=== PATIENT | female | born 1960 | race Caucasian/White ===

== ENCOUNTER 2022-05-13 19:59 | Inpatient (IN) ==
[2022-05-13] MEDS ORDERED: SODIUM CHLORIDE 0.9% 1000ML 1,000 ML IV ONE (20:25)
--- NOTE | 2022-05-13 20:38 | Emergency Department Note ---
Impression & Plan Dizziness, Syncope, Hypotension, Thyroid dysfunction ED Provider Note ED Provider Note NAME: LILLY BROWNING AGE:61 SEX: Female : 1960 ARRIVES VIA: EMS INFORMANT: Patient, EMS ED PROVIDER(s): Lisa Quinones DO CHIEF COMPLAINT: Syncope, dizziness, hypotension HPI: This is a 61-year-old female brought in by EMS following a syncopal event at home. Patient states she was feeling lightheaded/dizzy all day today. Patient states she recalls walking into the kitchen and the next thing she knew she was waking up on the floor. She states she did have preceding lightheadedness, blurred vision, and felt herself getting weaker prior to passing out. Unknown time on the floor prior to waking up. Patient does use lo w-dose aspirin, no anticoagulation. Patient denies any preceding or current headaches, chest pain, trouble breathing, abdominal pain. Patient denies any recent change in medications or recent illness. Patient states she had a similar episode previously and her blood pressure medication was lowered. She states she does still take losartan 25 mg daily. Patient states she does see cardiology and has had prior cardiac catheterization, no intervention required. Patient does use pain medication and muscle relaxers daily due to ongoing issues with back pain and spinal stenosis. Patient denies any change in urine or stools recently. She denies any current neck or back pain, chest pain, trouble breathing, numbness or tingling. Patient states she did have mild intermittent paresthesias to bilateral upper extremities earlier in the day today, prior to her syncopal event and fall. EMS reported on their arrival initial blood pressure showed a systolic in 60's. PAST MEDICAL HISTORY:See Below PAST SURGICAL HISTORY:See Below FAMILY HISTORY:See Below SOCIAL HISTORY:See Below HOME MEDICATIONS:See Below ALLERGIES:See Below VITALS:See Below PHYSICAL EXAMINATION: GENERAL: alert, well appearing, well nourished, no distress, non-toxic HEAD: nc/at, no castañeda signs, no raccoon eyes, no evidence of facial trauma EYE EXAM: normal conjunctiva, PERRL and EOM's grossly intact, no nystagmus OROPHARYNX: no exudate, no erythema, lips, buccal mucosa, and tongue normal and mucous membranes are moist NECK: supple, no nuchal rigidity, no adenopathy, non-tender LUNGS: Clear to auscultation. Normal chest wall mechanics, no w/r/r HEART: no murmurs, S1 normal and S2 normal ABDOMEN: abdomen soft, non-tender, normo-active bowel sounds, no masses, no rebound or guarding. BACK: Back is symmetrical on inspection and there is no deformity, no midline tenderness, no CVA tenderness. SKIN: no rashes, petechiae, orbruising UPPER EXTREMITIES: upper extremities are grossly normal. FROM, nml pulses b/l. No evidence of trauma or deformity. Sensation intact bilaterally. LOWER EXTREMITIES: No pitting edema. FROM, nml pulses b/l. No evidence of trauma or deformity. Sensation intact bilaterally. NEURO EXAM: Normal sensorium, cranial nerves II-XII grossly intact, normal spe ech, no facial droop,nogross weakness of arms, no gross weakness of legs. Gross sensation intact. No ataxia. Vital Signs: reviewed and remarkable Differential Diagnosis: Differential diagnosis includes etiologies such as vasovagal event, infection, hypoglycemia, electrolyte abnormalities, cardiac sources, intracerebral event, toxicologic, neurologic, as well as others were entertained. MEDICAL DECISION MAKING: Patient has a family history of CVA and hypertension. Patient was first seen and observation began at 2014 and was necessary in order to evaluate symptoms and etiology of syncope and hypotension. Upon re-evaluation, 4 hours of observation revealed that the patient could be discharged. Discharge from observation at time 0022. This is a 61 yo female brought by EMS after syncopal event at home with persistent hypotension. Patient hypotensive on arrival, VS otherwise stable, and IVF had been started prehospital. These were continued in the ER. Patient did have prodromal symptoms per her report, and denied preceding chest pain, headaches, abd pain. Patient no other focal complaints following syncope also and no concern for injury. No anticoagulation, low dose ASA. Patient sent for CT and CXR performed, these were reassuring. Labs reassuring with exception of TSH. patient with history of thyroid dysfunction and reports PCP recently changed her meds. She denies any other recent illness. Patient given 3 L of IVF in the ER and reported feeling improved however still had persistent h ypotension. She has a normal and nonfocal neuro exam throughout. She dose use antihypertensive meds and chronic pain meds which could be contributing to hypotension also. Given history, risk factors for ACS and hx of CAD, and persistent hypotension, case discussed with hospitalist for additional evaluation and treatment. I do not suspect acute CHASSIS WIRER or vascular etiology of her symptoms. Consultation(s): 0022: Discussed with Dr. Kenny. ER Treatment Provided: See below 2215: Patient still hypotensive, however reports feeling improved. 2258: Second liter of IV fluids started. Patient weaned off oxygen without any further hypoxia. Patient reports feeling improved and is tolerating p.o. at bedside. 2329: Patient still hypotensive despite feeling well. We did discuss thyroid dysfunction. She states her family doctor did recently make changes to her thyroid medication. 2358: Patient still hypotensive. Diagnostics Interpreted By Me: -ECG: Normal sinus rhythm at 79 bpm, first-degree AV block, normal QRS and QTc, normal axis, no acute ST/T wave changes -Cardiac Monitoring: An order was placed for continuous cardiac monitoring. The monitor shows a rate of 80 with normal sinus rhythm. -Laboratory studies: As stated above and show below. -Imaging studies: CT head and C-spine, chest x-ray Triage Nursing Note Reviewed Prior/Outside Records Reviewed Procedures: [] Critical Care: [] Past Med/Surg History Medical History (Updated 05/14/22 @ 13:54 by Baltazar Hernandez MD) CAD (coronary artery disease) Chest pain Dyslipidemia Hypertension Hypothyroid Sinus tachycardia Spinal stenosis, lumbar region with neurogenic claudication Surgical History H/O: hysterectomy partial History of cholecystectomy History of knee replacement Bilateral Hx of knee surgery Family History Mother Coronary heart disease Brother Coronary heart disease Social History Smoking Status: Never smoker Hx Alcohol Use: No Hx Substance Use: No Preferred Language: Telugu Communication Ability: Effective General Supervisor Required: No Beliefs That Will Affect Care: None marital status: Current Living Situation: Alone current occupational status: unemployed Feels Safe at Home: Yes Assistive Devices: Cane and Walker Allergies Allergies Allergy/AdvReac Type Severity Reaction Status Date / Time nickel Allergy Intermediate Hives Verified 05/14/22 00:59 Home Meds Home Medications Medication Instructions Recorded Confirmed aspirin 81 mg tablet,delayed 81 mg PO DAILY 08/10/20 05/14/22 release cetirizine 10 mg tablet 10 mg PO BID PRN Other 08/10/20 05/14/22 duloxetine 60 mg capsule,delayed 60 mg PO DAILY neuropathy 08/10/20 05/14/22 release etodolac 500 mg tablet 500 mg PO BID 08/10/20 05/14/22 metformin 500 mg tablet 1,000 mg PO BID 08/10/20 05/14/22 omeprazole 20 mg capsule,delayed 20 mg PO DAILY 08/10/20 05/14/22 release tizanidine 2 mg capsule 2 mg PO BID PRN MUSCLE SPASMS 02/20/21 05/14/22 semaglutide 1 mg/dose (2 mg/1.5 2 mg subcut WK 09/06/21 05/14/22 mL) subcutaneous pen injector camphor-menthol 0.5 %-0.5 % lotion 1 applic topical TID 02/25/22 05/14/22 diltiazem HCl 120 mg 120 mg PO DAILY 02/25/22 05/14/22 capsule,extended release 12 hr lidocaine 5 % topical ointment 1 applic topical BID 02/25/22 05/14/22 magnesium oxide 420 mg tablet 420 mg PO DAILY 02/25/22 05/14/22 pregabalin 225 mg capsule 225 mg PO BID 02/25/22 05/14/22 rosuvastatin 20 mg tablet 20 mg PO DAILY 02/25/22 05/14/22 metoprolol tartrate 25 mg tablet 25 mg PO DAILY 03/05/22 05/14/22 levothyroxine 25 mcg tablet 25 mcg PO Q OTHER DAY 05/14/22 05/14/22 levothyroxine 50 mcg tablet 50 mcg PO Q OTHER DAY 05/14/22 05/14/22 Previous Rx's Medication Instructions Recorded isosorbide mononitrate 30 mg 30 mg PO DAILY #30 tabs 08/27/20 tablet,extended release 24 hr Results & Data (ED) Vital Signs Vital Signs - 24 hr 05/13/22 20:09 05/13/22 20:09 05/13/22 20:09 Temperature 36.8 C Temperature Source Oral Pulse Rate 82 Pulse Rate [Right Finger] 80 Respiratory Rate Blood Pressure 84/57 L Blood Pressure [Right Arm] 84/57 L Blood Pressure Mean 66 Blood Pressure Mean [Right Arm] 66 Pulse Oximetry 91 91 Oxygen Delivery Method Room Air Room Air Room Air Oxygen Flow Rate Sepsis Recent Fever Within 48 Hours No Sepsis New/Unexplained Change in Mental Status No Sepsis Action Taken by Nursing No Action Required Pulse Oximetry Post Tiitration 91 05/13/22 20:37 05/13/22 22:07 05/13/22 22:47 Temperature Temperature Source Pulse Rate Pulse Rate [Right Finger] 77 76 Respiratory Rate Blood Pressure Blood Pressure [Right Arm] 80/52 L 82/51 L 91/59 L Blood Pressure Mean Blood Pressure Mean [Right Arm] 61 61 69 Pulse Oximetry 90 94 92 Oxygen Delivery Method Nasal Cannula Room Air Nasal Cannula Oxygen Flow Rate 2 2 Sepsis Recent Fever Within 48 Hours Sepsis New/Unexplained Change in Mental Status Sepsis Action Taken by Nursing Pulse Oximetry Post Tiitration 05/13/22 23:00 05/13/22 23:30 05/13/22 23:37 Temperature Temperature Source Pulse Rate 75 71 Pulse Rate [Right Finger] Respiratory Rate 21 17 Blood Pressure 71/54 L 94/59 L 91/57 L Blood Pressure [Right Arm] Blood Pressure Mean 59 70 68 Blood Pressure Mean [Right Arm] Pulse Oximetry 91 92 Oxygen Delivery Method Room Air Room Air Oxygen Flow Rate Sepsis Recent Fever Within 48 Hours Sepsis New/Unexplained Change in Mental Status Sepsis Action Taken by Nursing Pulse Oximetry Post Tiitration 05/13/22 23:38 05/14/22 00:00 Temperature Temperature Source Pulse Rate 77 77 Pulse Rate [Right Finger] Respiratory Rate 20 26 H Blood Pressure 97/71 L 92/64 L Blood Pressure [Right Arm] Blood Pressure Mean 79 73 Blood Pressure Mean [Right Arm] Pulse Oximetry 92 95 Oxygen Delivery Method Room Air Room Air Oxygen Flow Rate Sepsis Recent Fever Within 48 Hours Sepsis New/Unexplained Change in Mental Status Sepsis Action Taken by Nursing Pulse Oximetry Post Tiitration Laboratory Data 05/13/22 19:36 05/13/22 19:36 Lab Results 05/13/22 05/13/22 05/13/22 Range/Units 19:36 19:36 19:36 WBC 6.97 (4.8-10.8) K/ul RBC 4.83 (3.93-5.22) M/uL Hgb 13.2 (12.0-16.0) g/dl Hct 42.0 (34.1-44.9) % MCV 87.0 (80.0-100.0) fL MCH 27.3 (25.0-34.0) pg MCHC 31.4 L (32.0-36.0) g/dL RDW Std Deviation 47.6 H (36.4-46.3) fL RDW Coeff of Kamila 14.9 H (11.5-14.5) % Plt Count 231 (130-400) K/uL MPV 10.5 (9.4-12.3) fL Immature Gran % (Auto) 0.3 % Neut % (Auto) 79.2 % Lymph % (Auto) 13.6 % [place] % (Auto) 5.0 % Eos % (Auto) 1.3 % Baso % (Auto) 0.6 % Neut # (Auto) 5.52 (1.4-6.5) K/uL Lymph # (Auto) 0.95 L (1.2-3.4) K/uL [place] # (Auto) 0.35 (0.24-0.82) K/uL Eos # (Auto) 0.09 (0-0.50) K/uL Baso # (Auto) 0.04 (0-0.2) K/uL Immature Gran # (Auto) 0.02 (0.00-0.02) K/uL PT 10.9 (9.0-12.0) Seconds INR 1.0 (0.9-1.1) Sodium 136 (136-145) mmol/L Potassium 4.4 (3.5-5.1) mmol/L Chloride 103 (98-107) mmol/L Carbon Dioxide 26 (21-32) mmol/L Anion Gap 7 (3-11) BUN 21 (6-23) mg/dl Creatinine 1.19 (0.6-1.2) mg/dl Est Cr Clr Drug Dosing 54.4 ml/min Est GFR ( Amer) 57.9 ml/min Est GFR (Non-Af Amer) 49.9 ml/min BUN/Creatinine Ratio 17.6 (10-20) Glucose 121 H (70-99(Fasting)) mg/dl Calcium 9.4 (8.5-10.1) mg/dl Magnesium 1.7 (1.7-2.4) mg/dl Total Bilirubin 1.4 H (0.2-1.0) mg/dl AST 19 (13-39) U/L ALT 12 (7-52) U/L Alkaline Phosphatase 83 (34-104) U/L Troponin I High Sens 3.3 (0-14) pg/ml Total Protein 7.5 (6.0-8.3) gm/dl Albumin 4.5 (3.4-5.0) gm/dl Globulin 3.0 (2.5-4.0) gm/dl Albumin/Globulin Ratio 1.5 (0.9-2) TSH (0.300-4.500) uIu/ml Free T4 (0.61-1.60) ng/dl SARS-CoV-2 (PCR) (Negative) Influenza Type A (PCR) (Neg) Influenza Type B (PCR) (Neg) RSV (RT-PCR) (Neg) 05/13/22 05/13/22 05/14/22 Range/Units 19:36 23:56 00:30 WBC (4.8-10.8) K/ul RBC (3.93-5.22) M/uL Hgb (12.0-16.0) g/dl Hct (34.1-44.9) % MCV (80.0-100.0) fL MCH (25.0-34.0) pg MCHC (32.0-36.0) g/dL RDW Std Deviation (36.4-46.3) fL RDW Coeff of Kamila (11.5-14.5) % Plt Count (130-400) K/uL MPV (9.4-12.3) fL Immature Gran % (Auto) % Neut % (Auto) % Lymph % (Auto) % [place] % (Auto) % Eos % (Auto) % Baso % (Auto) % Neut # (Auto) (1.4-6.5) K/uL Lymph # (Auto) (1.2-3.4) K/uL [place] # (Auto) (0.24-0.82) K/uL Eos # (Auto) (0-0.50) K/uL Baso # (Auto) (0-0.2) K/uL Immature Gran # (Auto) (0.00-0.02) K/uL PT (9.0-12.0) Seconds INR (0.9-1.1) Sodium (136-145) mmol/L Potassium (3.5-5.1) mmol/L Chloride (98-107) mmol/L Carbon Dioxide (21-32) mmol/L Anion Gap (3-11) BUN (6-23) mg/dl Creatinine (0.6-1.2) mg/dl Est Cr Clr Drug Dosing ml/min Est GFR ( Amer) ml/min Est GFR (Non-Af Amer) ml/min BUN/Creatinine Ratio (10-20) Glucose (70-99(Fasting)) mg/dl Calcium (8.5-10.1) mg/dl Magnesium (1.7-2.4) mg/dl Total Bilirubin (0.2-1.0) mg/dl AST (13-39) U/L ALT (7-52) U/L Alkaline Phosphatase (34-104) U/L Troponin I High Sens 2.4 (0-14) pg/ml Total Protein (6.0-8.3) gm/dl Albumin (3.4-5.0) gm/dl Globulin (2.5-4.0) gm/dl Albumin/Globulin Ratio (0.9-2) TSH 21.297 H (0.300-4.500) uIu/ml Free T4 0.65 (0.61-1.60) ng/dl SARS-CoV-2 (PCR) NEGATIVE (Negative) Influenza Type A (PCR) Negative (Neg) Influenza Type B (PCR) Negative (Neg) RSV (RT-PCR) Negative (Neg) Administered Medications Discontinued Medications Hydrocodone Bitart/Acetaminophen (Hydrocodone/Acetaminophen 7.5/325mg Tab) 1 tab PO NOW STA Stop: 05/13/22 23:34 Last Admin: 05/13/22 23:46 Dose: 1 tab Documented By: DP Hydrocodone Bitart/Acetaminophen (Hydrocodone/Acetaminophen 7.5/325mg Tab) 1 tab PO Q8H PRN PRN Reason: Moderate Pain Stop: 05/28/22 02:34 Last Admin: 05/14/22 05:08 Dose: 1 tab Documented By: CLC Aspirin (Aspirin 81 Mg Ectab) 81 mg PO DAILY TITO Stop: 06/13/22 08:59 Last Admin: 05/14/22 08:41 Dose: 81 mg Documented By: CB Diltiazem HCl (Diltiazem Hcl 120 Mg Capcr) 120 mg PO DAILY [facility] Stop: 06/13/22 08:59 Last Admin: 05/14/22 08:41 Dose: 120 mg Documented By: GABRIELLA Duloxetine HCl (Duloxetine Hcl 60 Mg Cap) 60 mg PO DAILY [facility] Stop: 06/13/22 08:59 Last Admin: 05/14/22 08:41 Dose: 60 mg Documented By: GABRIELLA Sodium Chloride (Nss 1000ml) 1,000 mls @ 999 mls/hr IV .Q1H1M ONE Stop: 05/13/22 21:25 Last Infusion: 05/13/22 21:40 Dose: 0 mls/hr Documented By: Admin: 05/13/22 20:37 Dose: 999 mls/hr Documented By: TAM Magnesium Sulfate/Dextrose (Magnesium Sulfate / D5w) 1 gm in 100 mls @ 50 mls/hr IV Q2H TITO Stop: 05/14/22 12:59 Last Infusion: 05/14/22 13:34 Dose: 0 mls/hr Documented By: Admin: 05/14/22 11:13 Dose: 50 mls/hr Documented By: Infusion: 05/14/22 11:13 Dose: 50 mls/hr Documented By: Admin: 05/14/22 09:40 Dose: 50 mls/hr Documented By: GABRIELLA Insulin Aspart (Insulin Aspart Per Unit) 0 units SC ACHS [facility] Stop: 06/13/22 07:29 Last Admin: 05/14/22 12:45 Dose: 1 units Documented By: GABRIELLA Co-signed By: KRISS Admin: 05/14/22 08:22 Dose: 1 units Documented By: GABRIELLA Co-signed By: MING Isosorbide Mononitrate (Isosorbide [place] Extended Rel 30 Mg Tabcr) 30 mg PO DAILY [facility] Stop: 06/13/22 08:59 Last Admin: 05/14/22 10:58 Dose: Not Given Documented By: GABRIELLA Isosorbide Mononitrate (Isosorbide [place] Extended Rel 30 Mg Tabcr) 15 mg PO DAILY [facility] Stop: 06/13/22 10:59 Last Admin: 05/14/22 11:06 Dose: 15 mg Documented By: GABRIELLA Levothyroxine Sodium (Levothyroxine Sodium 50 Mcg Tablet) 50 mcg PO Q2D@0630 [facility] Stop: 06/13/22 06:29 Last Admin: 05/14/22 05:05 Dose: 50 mcg Documented By: ABDON Lidocaine (Lidocaine 5% Oint 30 Gm Tube) 1 appln TOP BID [facility] Stop: 06/13/22 08:59 Last Admin: 05/14/22 08:41 Dose: 1 appln Documented By: GABRIELLA Losartan Potassium (Losartan Potassium 50 Mg Tab) 50 mg PO DAILY [facility] Stop: 06/13/22 08:59 Last Admin: 05/14/22 10:59 Dose: Not Given Documented By: GABRIELLA Losartan Potassium (Losartan Potassium 25 Mg Tab) 25 mg PO DAILY [facility] Stop: 06/13/22 10:59 Last Admin: 05/14/22 11:06 Dose: 25 mg Documented By: GABRIELLA Magnesium Oxide (Magnesium Oxide 400 Mg Tab) 400 mg PO DAILY [facility] Stop: 06/13/22 08:59 Last Admin: 05/14/22 08:40 Dose: 400 mg Documented By: GABRIELLA Metoprolol Tartrate (Metoprolol Tartrate 25 Mg Tab) 25 mg PO DAILY [facility] Stop: 06/13/22 08:59 Last Admin: 05/14/22 08:41 Dose: 25 mg Documented By: GABRIELLA Miscellaneous (Etodolac - Order Awaiting Action) 1 each N/A QS [facility] Stop: 06/13/22 07:59 Last Admin: 05/14/22 08:32 Dose: Not Given Documented By: GABRIELLA *Etodolac 500 Mg Tab *Non-Formulary Patient's Own Med 1 each PO BID [facility]; Protocol Stop: 06/13/22 09:59 Last Admin: 05/14/22 10:29 Dose: 1 tab Documented By: GABRIELLA Pantoprazole Sodium (Pantoprazole 40 Mg Tab) 40 mg PO DAILY [facility] Stop: 06/13/22 08:59 Last Admin: 05/14/22 08:40 Dose: 40 mg Documented By: GABRIELLA Pregabalin (Pregabalin 75 Mg Cap) 225 mg PO BID [facility] Stop: 06/13/22 08:59 Last Admin: 05/14/22 08:40 Dose: 225 mg Documented By: GABRIELLA Rosuvastatin Calcium (Rosuvastatin Calcium 20 Mg Tab) 20 mg PO DAILY [facility] Stop: 06/13/22 08:59 Last Admin: 05/14/22 08:41 Dose: 20 mg Documented By: GABRIELLA Imaging Data Radiologist's Impression: Cervical Spine CT 05/13/22 20:25 CT SCAN OF THE CERVICAL SPINE CLINICAL HISTORY: Fall. Neck pain. COMPARISON STUDY: No priors. TECHNIQUE: CT scan of the cervical spine is performed from the skull base to the upper thoracic spine. Images are reviewed in the axial, sagittal, and coronal planes. IV contrast was not administered for this examination. A dose lowering technique was utilized adhering to the principles of ALARA. FINDINGS: Skeletal structures: The skeletal structures are osteopenia. There is no evidence of fracture or subluxation involving the cervical spine. Vertebral body height and alignment are maintained. There is straightening of the cervical lordosis. Anterior osteophytes are seen throughout. The odontoid process and lateral masses are intact. The atlantoaxial articulation is preserved noting productive degenerative change. The spinous processes appear intact. There is mild to moderate multilevel cervical spondylosis. Uncovertebral and facet arthropathy contribute to neural foraminal narrowing at several levels. Intervertebral discs: There is moderate multilevel degenerative disc space narrowing, greatest at C5-C6 and C6-C7. Central canal: Posterior disc osteophyte complexes are seen at all cervical levels between C3-C4 and C6-C7. This likely contributes to multilevel acquired compromise of the central canal. Soft tissues: The prevertebral and paraspinous soft tissues are within normal limits. There is atherosclerotic calcification of the left carotid bulb. Calvarium: The visualized calvarium at the skull base appears intact. Brain parenchyma: Partially visualized brain parenchyma at the skull base is within normal limits. Sinuses and mastoids: The visualized paranasal sinuses are clear. The mastoid air cells are well pneumatized. Lung apices: Clear as visualized. IMPRESSION: 1. There is no evidence of fracture or subluxation involving the cervical spine. 2. Osteopenia and spondylotic change as above. ACT 112: Negative or not required by law. Electronically signed by: Von Crump M.D. 05/13/2022 9:43 PM Chest X-Ray 05/13/22 20:25 SINGLE VIEW CHEST CLINICAL HISTORY: Generalized weakness. Hypotension FINDINGS: An AP, portable, upright chest radiograph is obtained. No prior studies are available for comparison at the time of dictation. The examination is degraded by portable technique and apical lordotic positioning. The cardiomediastinal silhouette is unremarkable. There is mild elevation of the right hemidiaphragm. The lungs and pleural spaces are clear. No pneumothorax is seen. The skeletal structures are osteopenic. The bony thorax is grossly intact. IMPRESSION: No active disease in the chest. ACT 112: Negative or not required by law. Electronically signed by: Von Crump M.D. 05/13/2022 8:[address] 05/13/22 20:25 CT SCAN OF THE BRAIN WITHOUT IV CONTRAST CLINICAL HISTORY: Head injury. COMPARISON STUDY: No priors. TECHNIQUE: Unenhanced axial CT scan of the brain is performed from the vertex to the skull base. A dose lowering technique was utilized adhering to the principles of ALARA. CT DOSE: 1087.85 mGy.cm FINDINGS: Brain parenchyma: The brain parenchyma is normal in appearance. There is no hemorrhage, mass effect, or evidence of acute territorial ischemia by CT criteria. López-white matter differentiation is preserved. No extra-axial fluid collection is seen. Ventricles, sulci, cisterns: Normal in configuration. Intracranial vasculature: The visualized intracranial vasculature at the skull base is normal in appearance. Calvarium: Unremarkable. Sinuses and mastoids: The paranasal sinuses are clear. The mastoid air cells are well pneumatized. Orbits: The bony orbits are grossly intact. IMPRESSION: No acute intracranial abnormality. ACT 112: Negative or not required by law. Electronically signed by: Von Crump M.D. 05/13/2022 9:36 PM Discharge Plan Visit Data Chief Complaint: Dizziness Stated Complaint: Fall ED Provider: Lisa Quinones Discharge Problem: Dizziness, Syncope, Hypotension, Thyroid dysfunction Patient Disposition: Admitted As Inpatient Discharge Instructions Interventions: ED Discharge Assessment Last Done: 05/14/22 02:21
--- NOTE | 2022-05-13 20:59 | XRay Report ---
SINGLE VIEW CHEST CLINICAL HISTORY: Generalized weakness. Hypotension FINDINGS: An AP, portable, upright chest radiograph is obtained. No prior studies are available for c omparison at the time of dictation. The examination is degraded by portable technique and apical lord otic positioning. The cardiomediastinal silhouette is unremarkable. There is mild elevation of the ri ght hemidiaphragm. The lungs and pleural spaces are clear. No pneumothorax is seen. The skeletal stru ctures are osteopenic. The bony thorax is grossly intact. IMPRESSION: No active disease in the chest. ACT 112: Negative or not required by law. Electronically signed by: Von Crump M.D. 05/13/2022 8:58 PM
[2022-05-13 21:12] LABS: Basophils # (auto) 0.04 K/uL (0-0.2); Basophils % (auto) 0.6 %; Eosinophils # (auto) 0.09 K/uL (0-0.50); Eosinophils % (auto) 1.3 %; Hemoglobin 13.2 g/dl (12.0-16.0); Immature Granulocytes # (auto) 0.02 K/uL (0.00-0.02); Immature Granulocytes % (auto) 0.3 %; Lymphocytes # (auto) 0.95 K/uL (1.2-3.4); Lymphocytes % (auto) 13.6 %; Mean Corpuscular Hemoglobin 27.3 pg (25.0-34.0); Mean Corpuscular Hgb Conc 31.4 g/dL (32.0-36.0); Mean Platelet Volume 10.5 fL (9.4-12.3); Monocytes # (auto) 0.35 K/uL (0.24-0.82); Neutrophils # (auto) 5.52 K/uL (1.4-6.5); Neutrophils % (auto) 79.2 %; Platelet Count 231 K/uL (130-400); RDW Coefficient of Variation 14.9 % (11.5-14.5); RDW Standard Deviation 47.6 fL (36.4-46.3); Red Blood Count 4.83 M/uL (3.93-5.22); White Blood Count 6.97 K/ul (4.8-10.8)
[2022-05-13 21:24] LABS: Prothrombin Time 10.9 Seconds (9.0-12.0)
[2022-05-13 21:33] LABS: Albumin Level 4.5 gm/dl (3.4-5.0); Bilirubin,Total 1.4 mg/dl (0.2-1.0); Calcium 9.4 mg/dl (8.5-10.1); Magnesium 1.7 mg/dl (1.7-2.4); Potassium 4.4 mmol/L (3.5-5.1)
--- NOTE | 2022-05-13 21:37 | CT Scan Report ---
CT SCAN OF THE BRAIN WITHOUT IV CONTRAST CLINICAL HISTORY: Head injury. COMPARISON STUDY: No priors. TECHNIQUE: Unenhanced axial CT scan of the brain is performed from the vertex to the skull base. A d ose lowering technique was utilized adhering to the principles of ALARA. CT DOSE: 1087.85 mGy.cm FINDINGS: Brain parenchyma: The brain parenchyma is normal in appearance. There is no hemorrhage, mass effect, or evidence of acute territorial ischemia by CT criteria. López-white matter differentiation is preser padmini. No extra-axial fluid collection is seen. Ventricles, sulci, cisterns: Normal in configuration. Intracranial vasculature: The visualized intracranial vasculature at the skull base is normal in appe arance. Calvarium: Unremarkable. Sinuses and mastoids: The paranasal sinuses are clear. The mastoid air cells are well pneumatized. Orbits: The bony orbits are grossly intact. IMPRESSION: No acute intracranial abnormality. ACT 112: Negative or not required by law. Electronically signed by: Von Crump M.D. 05/13/2022 9:36 PM
[2022-05-13 21:39] LABS: Albumin Globulin Ratio 1.5 (0.9-2); BUN Creatinine Ratio 17.6 (10-20); Creatinine Clr Calc Pharmacy 54.4 ml/min; Est GFR (African American) 57.9 ml/min; Est GFR (Non-African American) 49.9 ml/min; Total Protein 7.5 gm/dl (6.0-8.3)
[2022-05-13 21:40] LABS: Troponin I High Sensitivity 3.3 pg/ml (0-14)
--- NOTE | 2022-05-13 21:45 | CT Scan Report ---
CT SCAN OF THE CERVICAL SPINE CLINICAL HISTORY: Fall. Neck pain. COMPARISON STUDY: No priors. TECHNIQUE: CT scan of the cervical spine is performed from the skull base to the upper thoracic spine . Images are reviewed in the axial, sagittal, and coronal planes. IV contrast was not administered fo r this examination. A dose lowering technique was utilized adhering to the principles of ALARA. FINDINGS: Skeletal structures: The skeletal structures are osteopenia. There is no evidence of fracture or subl uxation involving the cervical spine. Vertebral body height and alignment are maintained. There is s traightening of the cervical lordosis. Anterior osteophytes are seen throughout. The odontoid process and lateral masses are intact. The atlantoaxial articulation is preserved noting productive degenera tive change. The spinous processes appear intact. There is mild to moderate multilevel cervical spond ylosis. Uncovertebral and facet arthropathy contribute to neural foraminal narrowing at several level s. Intervertebral discs: There is moderate multilevel degenerative disc space narrowing, greatest at C5- C6 and C6-C7. Central canal: Posterior disc osteophyte complexes are seen at all cervical levels between C3-C4 and C6-C7. This likely contributes to multilevel acquired compromise of the central canal. Soft tissues: The prevertebral and paraspinous soft tissues are within normal limits. There is athero sclerotic calcification of the left carotid bulb. Calvarium: The visualized calvarium at the skull base appears intact. Brain parenchyma: Partially visualized brain parenchyma at the skull base is within normal limits. Sinuses and mastoids: The visualized paranasal sinuses are clear. The mastoid air cells are well pneu matized. Lung apices: Clear as visualized. IMPRESSION: 1. There is no evidence of fracture or subluxation involving the cervical spine. 2. Osteopenia and spondylotic change as above. ACT 112: Negative or not required by law. Electronically signed by: Von Crump M.D. 05/13/2022 9:43 PM
[2022-05-13 21:48] LABS: Thyroid Stimulating Hormone 21.297 uIu/ml (0.300-4.500)
[2022-05-13 22:28] LABS: T4 Free Thyroxine 0.65 ng/dl (0.61-1.60)
[2022-05-13] MEDS ORDERED: HYDROCODONE/ACETAMINOPHEN 7.5/325MG TAB PO STA (23:33)
[2022-05-14 01:26] LABS: Influenza A virus by PCR Negative (Neg); Influenza B virus by PCR Negative (Neg); RSV by PCR Negative (Neg); SARS CoV2 RNA(COVID-19) Ceph NEGATIVE (Negative)
--- NOTE | 2022-05-14 01:30 | History & Physical Report ---
Date of Service May 14, 2022 Assessment & Plan (1) Syncope: (2) Hypotension: (3) Hypothyroidism: (4) Hypertension: (5) Dyslipidemia: (6) Diabetes mellitus: (7) Dizziness: (8) Alopecia: Plan Syncope with collapse/hypertension/hypotension while in the ED/history of near syncope- The patient will be admitted to telemetry for serial cardiac enzymes, serial EKG's, cardiac rhythm monitoring and a 2-D echocardiogram with Dopplers. Troponin normal at 3.3 Continue aspirin 81 mg daily, diltiazem extended release high 20 mg daily, isosorbide mononitrate 30 mg daily. Hold metoprolol tartrate, as timing of her improvement this evening in the ED may be related to the offset of the metoprolol tartrate, which she only takes in the morning. Hold losartan Follow vital signs closely Hypothyroidism- She reports her dosing has been adjusted in outpatient setting. TSH is increased further from 6.06 on 03/13/2022 to 21.297 today Will have her outpatient physician further titrate upward her levothyroxine dosing. This may be contributing to generalized fatigue Diabetes mellitus- Hold metformin and semaglutide Place on Accu-Cheks before meals and at bedtime with NovoLog coverage per scale Check hemoglobin A1c Hyperlipidemia- Continue simvastatin 20 mg daily Check a fasting lipid panel GERD- Continue omeprazole/pantoprazole Peripheral neuropathy- Continue pregabalin 225 mg p.o. twice daily and duloxetine 60 mg daily Hold as needed diazepam for now Cannot rule out that some orthostasis may be contributed to by these medications Lumbar radiculopathy0 Acetaminophen 650 mg p.o. every 6 hours as needed for mild pain or fever Continue hydrocodone/acetaminophen 7.5/325, 1 p.o. every 8 hours as needed for moderate pain History of Present Illness Chief Complaint: The patient presents to the emergency department following an unwitnessed syncopal event at home, after being lightheaded and dizzy all day. She remembers walking into the kitchen, and then next thing she knew she was waking up on the floor. She has had some intermittent episodes of lightheadedness and dizziness, and blurred vision prior to this episode. She reports that when she had a similar prior episode, she had a blood pressure medication reduced. She does have history of previous cardiac catheterization with no intervention needed. Primary Care Provider: Jonny Lyman NP-C The patient is a 61-year-old female with a past medical history including hypothyroidism, greater trochanteric bursitis, alopecia, myofascial pain, lumbar spinal stenosis with neurogenic claudication, thoracic facet syndrome, hypertension, dyslipidemia, chest pain syndrome, diabetes mellitus, DJD and hypertension. The patient was found to be hypotensive in the emergency department with systolic blood pressure as low as 71/54, did respond to fluid boluses, however, blood pressure was not easily maintained above the low to mid 90s systolic, which is also accompanied by intermittent dizziness and fatigue. At the time my examination, the patient's blood pressure did relatively suddenly improve, and symptoms resolved, as her systolic blood pressure went into the 114 range. Allergies Allergy/AdvReac Type Severity Reaction Status Date / Time nickel Allergy Intermediate Hives Verified 05/14/22 00:59 Home Medications Medication Instructions Recorded Confirmed Type aspirin 81 mg tablet,delayed 81 mg PO DAILY 08/10/20 05/14/22 History release cetirizine 10 mg tablet 10 mg PO BID PRN Other 08/10/20 05/14/22 History duloxetine 60 mg capsule,delayed 60 mg PO DAILY neuropathy 08/10/20 05/14/22 History release etodolac 500 mg tablet 500 mg PO BID 08/10/20 05/14/22 History metformin 500 mg tablet 1,000 mg PO BID 08/10/20 05/14/22 History omeprazole 20 mg capsule,delayed 20 mg PO DAILY 08/10/20 05/14/22 History release isosorbide mononitrate 30 mg 30 mg PO DAILY #30 tabs 08/27/20 05/14/22 Rx tablet,extended release 24 hr tizanidine 2 mg capsule 2 mg PO BID PRN MUSCLE SPASMS 02/20/21 05/14/22 History semaglutide 1 mg/dose (2 mg/1.5 2 mg subcut WK 09/06/21 05/14/22 History mL) subcutaneous pen injector blood sugar diagnostic (Accu-Chek 02/25/22 05/08/22 History Guide test strips) camphor-menthol 0.5 %-0.5 % lotion 1 applic topical TID 02/25/22 05/14/22 History diltiazem HCl 120 mg 120 mg PO DAILY 02/25/22 05/14/22 History capsule,extended release 12 hr lancets (Accu-Chek Softclix 02/25/22 05/08/22 History Lancets) lidocaine 5 % topical ointment 1 applic topical BID 02/25/22 05/14/22 History losartan 50 mg tablet 50 mg PO DAILY 02/25/22 05/14/22 History magnesium oxide 420 mg tablet 420 mg PO DAILY 02/25/22 05/14/22 History pregabalin 225 mg capsule 225 mg PO BID 02/25/22 05/14/22 History rosuvastatin 20 mg tablet 20 mg PO DAILY 02/25/22 05/14/22 History hydrocodone 7.5 mg-acetaminophen 1 tab PO Q8H PRN Pain 03/05/22 05/14/22 History 325 mg tablet metoprolol tartrate 25 mg tablet 25 mg PO DAILY 03/05/22 05/14/22 History diazepam 5 mg tablet (Valium) 5 mg PO TID PRN muscle spasm #3 05/13/22 05/14/22 Rx tabs levothyroxine 25 mcg tablet 25 mcg PO Q OTHER DAY 05/14/22 05/14/22 History levothyroxine 50 mcg tablet 50 mcg PO Q OTHER DAY 05/14/22 05/14/22 History Past Med/Surg History Medical History Chest pain Dyslipidemia Hypertension Hypothyroid Sinus tachycardia Spinal stenosis, lumbar region with neurogenic claudication Surgical History H/O: hysterectomy partial History of cholecystectomy History of knee replacement Bilateral Hx of knee surgery Family History Mother Coronary heart disease Brother Coronary heart disease Social History Smoking Status: Never smoker Hx Alcohol Use: No Hx Substance Use: No Preferred Language: Nepali Communication Ability: Effective Broom Stitcher Required: No Beliefs That Will Affect Care: None marital status: Current Living Situation: Alone current occupational status: unemployed Other Information That Helps Us Care for You: No Feels Safe at Home: Yes Safety Concerns: Feels Safe At This Time Assistive Devices: Cane and Walker Assistive Devices Comment: Uses cane or walker when experiencing increased back pain. Review of Systems Review of Systems: The patient denies chest pain, palpitations, cough, lower extremity swelling, sore throat, fevers, chills, sweats, nausea, vomiting, diarrhea , constipation, abdominal pain, pelvic pain, blood in urine or stool, dysuria, urinary frequency or urgency, headache, memory loss, loss of consciousness, rash, abnormal bruising or bleeding, focal or generalized weakness, numbness or tingling in arms or legs, generalized arthralgias or myalgias, neck pain, or night sweats. The review of systems is otherwise negative other than for that already noted above, and at least 10 systems have been reviewed. Physical Exam Physical Exam: The patient is awake, alert and oriented 3, well developed and well nourished, normocephalic and atraumatic, lying in bed and in no acute distress. HEENT--PERRL, EOMI, mucous membranes and oropharynx normal. Neck--supple. No JVD. No bruits. Thyroid normal, trachea midline, no adenopathy. Heart--normal S1 and S2. No murmurs, rubs or gallops. Lungs--clear bilaterally, no respiratory distress, no accessory muscle use. Abdomen--normal bowel sounds and soft. Nontender. Nondistended, no hernias or masses, no organomegaly. Extremities--no cyanosis or clubbing. No edema. There are good distal pulses b/l. Dermatologic--normal skin turgor, normal color, no abnormal lymph nodes, no rash. Neurologic--cranial nerves II through XII grossly intact. Rheumatologic--normal range of motion. Psychiatric--normal affect. Results & Data Results & Data ([facility]) Vital Signs (Past 12 Hours) Vital Signs Temp Pulse Pulse Resp BP BP Pulse Ox 05/14/22 00:00 77 26 H 92/64 L 95 05/13/22 23:38 77 20 97/71 L 92 05/13/22 23:37 71 17 91/57 L 92 05/13/22 23:30 75 21 94/59 L 91 05/13/22 23:00 71/54 L 05/13/22 22:47 76 91/59 L 92 05/13/22 22:07 77 82/51 L 94 05/13/22 20:37 80/52 L 90 01/17/23 20:09 80 84/57 L 91 05/13/22 20:09 05/13/22 20:09 36.8 C 82 84/57 L 91 O2 Del Method O2 Flow Rate 05/14/22 00:00 Room Air 05/13/22 23:38 Room Air 05/13/22 23:37 Room Air 05/13/22 23:30 Room Air 05/13/22 23:00 05/13/22 22:47 Nasal Cannula 2 05/13/22 22:07 Room Air 05/13/22 20:37 Nasal Cannula 2 05/13/22 20:09 Room Air 05/13/22 20:09 Room Air 05/13/22 20:09 Room Air Laboratory Results Laboratory Results WBC 6.97 K/ul (4.8-10.8) 05/13/22 19:36 RBC 4.83 M/uL (3.93-5.22) 05/13/22 19:36 Hgb 13.2 g/dl (12.0-16.0) 05/13/22 19:36 Hct 42.0 % (34.1-44.9) 05/13/22 19:36 MCV 87.0 fL (80.0-100.0) 05/13/22 19:36 MCH 27.3 pg (25.0-34.0) 05/13/22 19:36 MCHC 31.4 g/dL (32.0-36.0) L 05/13/22 19:36 RDW Std Deviation 47.6 fL (36.4-46.3) H 05/13/22 19:36 RDW Coeff of Kamila 14.9 % (11.5-14.5) H 05/13/22 19:36 Plt Count 231 K/uL (130-400) 05/13/22 19:36 MPV 10.5 fL (9.4-12.3) 05/13/22 19:36 Immature Gran % (Auto) 0.3 % 05/13/22 19:36 Neut % (Auto) 79.2 % 05/13/22 19:36 Lymph % (Auto) 13.6 % 05/13/22 19:36 [place] % (Auto) 5.0 % 05/13/22 19:36 Eos % (Auto) 1.3 % 05/13/22 19:36 Baso % (Auto) 0.6 % 05/13/22 19:36 Neut # (Auto) 5.52 K/uL (1.4-6.5) 05/13/22 19:36 Lymph # (Auto) 0.95 K/uL (1.2-3.4) L 05/13/22 19:36 [place] # (Auto) 0.35 K/uL (0.24-0.82) 05/13/22 19:36 Eos # (Auto) 0.09 K/uL (0-0.50) 05/13/22 19:36 Baso # (Auto) 0.04 K/uL (0-0.2) 05/13/22 19:36 Immature Gran # (Auto) 0.02 K/uL (0.00-0.02) 05/13/22 19:36 PT 10.9 Seconds (9.0-12.0) 05/13/22 19:36 INR 1.0 (0.9-1.1) 05/13/22 19:36 Sodium 136 mmol/L (136-145) 05/13/22 19:36 Potassium 4.4 mmol/L (3.5-5.1) 05/13/22 19:36 Chloride 103 mmol/L (98-107) 05/13/22 19:36 Carbon Dioxide 26 mmol/L (21-32) 05/13/22 19:36 Anion Gap 7 (3-11) 05/13/22 19:36 BUN 21 mg/dl (6-23) 05/13/22 19:36 Creatinine 1.19 mg/dl (0.6-1.2) 05/13/22 19:36 Est Cr Clr Drug Dosing 54.4 ml/min 05/13/22 19:36 Est GFR ( Amer) 57.9 ml/min 05/13/22 19:36 Est GFR (Non-Af Amer) 49.9 ml/min 05/13/22 19:36 BUN/Creatinine Ratio 17.6 (10-20) 05/13/22 19:36 Glucose 121 mg/dl (70-99(Fasting)) H 05/13/22 19:36 Calcium 9.4 mg/dl (8.5-10.1) 05/13/22 19:36 Magnesium 1.7 mg/dl (1.7-2.4) 05/13/22 19:36 Total Bilirubin 1.4 mg/dl (0.2-1.0) H 05/13/22 19:36 AST 19 U/L (13-39) 05/13/22 19:36 ALT 12 U/L (7-52) 05/13/22 19:36 Alkaline Phosphatase 83 U/L (34-104) 05/13/22 19:36 Troponin I High Sens 2.4 pg/ml (0-14) 05/13/22 23:56 Total Protein 7.5 gm/dl (6.0-8.3) 05/13/22 19:36 Albumin 4.5 gm/dl (3.4-5.0) 05/13/22 19:36 Globulin 3.0 gm/dl (2.5-4.0) 05/13/22 19:36 Albumin/Globulin Ratio 1.5 (0.9-2) 05/13/22 19:36 TSH 21.297 uIu/ml (0.300-4.500) H 05/13/22 19:36 Free T4 0.65 ng/dl (0.61-1.60) 05/13/22 19:36 SARS-CoV-2 (PCR) NEGATIVE (Negative) 05/14/22 00:30 Influenza Type A (PCR) Negative (Neg) 05/14/22 00:30 Influenza Type B (PCR) Negative (Neg) 05/14/22 00:30 RSV (RT-PCR) Negative (Neg) 05/14/22 00:[address] 05/13/22 20:25 CT SCAN OF THE CERVICAL SPINE CLINICAL HISTORY: Fall. Neck pain. COMPARISON STUDY: No priors. TECHNIQUE: CT scan of the cervical spine is performed from the skull base to the upper thoracic spine. Images are reviewed in the axial, sagittal, and coronal planes. IV contrast was not administered for this examination. A dose lowering technique was utilized adhering to the principles of ALARA. FINDINGS: Skeletal structures: The skeletal structures are osteopenia. There is no evidence of fracture or subluxation involving the cervical spine. Vertebral body height and alignment are maintained. There is straightening of the cervical lordosis. Anterior osteophytes are seen throughout. The odontoid process and lateral masses are intact. The atlantoaxial articulation is preserved noting productive degenerative change. The spinous processes appear intact. There is mild to moderate multilevel cervical spondylosis. Uncovertebral and facet arthropathy contribute to neural foraminal narrowing at several levels. Intervertebral discs: There is moderate multilevel degenerative disc space narrowing, greatest at C5-C6 and C6-C7. Central canal: Posterior disc osteophyte complexes are seen at all cervical levels between C3-C4 and C6-C7. This likely contributes to multilevel acquired compromise of the central canal. Soft tissues: The prevertebral and paraspinous soft tissues are within normal limits. There is atherosclerotic calcification of the left carotid bulb. Calvarium: The visualized calvarium at the skull base appears intact. Brain parenchyma: Partially visualized brain parenchyma at the skull base is within normal limits. Sinuses and mastoids: The visualized paranasal sinuses are clear. The mastoid air cells are well pneumatized. Lung apices: Clear as visualized. IMPRESSION: 1. There is no evidence of fracture or subluxation involving the cervical spine. 2. Osteopenia and spondylotic change as above. ACT 112: Negative or not required by law. Electronically signed by: Von Crump M.D. 05/13/2022 9:43 PM Chest X-Ray 05/13/22 20:25 SINGLE VIEW CHEST CLINICAL HISTORY: Generalized weakness. Hypotension FINDINGS: An AP, portable, upright chest radiograph is obtained. No prior studies are available for comparison at the time of dictation. The examination is degraded by portable technique and apical lordotic positioning. The cardiomediastinal silhouette is unremarkable. There is mild elevation of the right hemidiaphragm. The lungs and pleural spaces are clear. No pneumothorax is seen. The skeletal structures are osteopenic. The bony thorax is grossly intact. IMPRESSION: No active disease in the chest. ACT 112: Negative or not required by law. Electronically signed by: Von Crump M.D. 05/13/2022 8:[address] 05/13/22 20:25 CT SCAN OF THE BRAIN WITHOUT IV CONTRAST CLINICAL HISTORY: Head injury. COMPARISON STUDY: No priors. TECHNIQUE: Unenhanced axial CT scan of the brain is performed from the vertex to the skull base. A dose lowering technique was utilized adhering to the principles of ALARA. CT DOSE: 1087.85 mGy.cm FINDINGS: Brain parenchyma: The brain parenchyma is normal in appearance. There is no hemorrhage, mass effect, or evidence of acute territorial ischemia by CT criteria. López-white matter differentiation is preserved. No extra-axial fluid collection is seen. Ventricles, sulci, cisterns: Normal in configuration. Intracranial vasculature: The visualized intracranial vasculature at the skull base is normal in appearance. Calvarium: Unremarkable. Sinuses and mastoids: The paranasal sinuses are clear. The mastoid air cells are well pneumatized. Orbits: The bony orbits are grossly intact. IMPRESSION: No acute intracranial abnormality. ACT 112: Negative or not required by law. Electronically signed by: Von Crump M.D. 05/13/2022 9:36 PM Code Status & VTE Plan Code Status Full code VTE Prophylaxis Plan VTE Prophylaxis will be ordered: Yes PG Care Time/CCT Total # of Minutes Spent Total Time Spent with Patient: Total time spent is greater than 50% in coordination of care (as documented) at patient's floor/unit and/or counseling patient: Coding Level of Care Code 00669 INT INP/OBS CARE 3/75MIN Diagnoses Syncope R55 Hypotension I95.9 Hypothyroidism E03.9 Hypertension I10 Dyslipidemia E78.5 Diabetes mellitus E11.9 Dizziness R42 Alopecia L65.9
[2022-05-14] MEDS ORDERED: GLUCAGON FOR INJ 1 MG VIAL SQ PRN (02:35)
[2022-05-14] MEDS ORDERED: ACETAMINOPHEN 325 MG TAB PO PRN (02:35)
[2022-05-14] MEDS ORDERED: HYDROCODONE/ACETAMINOPHEN 7.5/325MG TAB PO PRN (02:35)
[2022-05-14] MEDS ORDERED: ONDANSETRON INJ 2 MG/ML 2 ML VIAL IV PRN (02:35)
[2022-05-14] MEDS ORDERED: CARBOHYDRATES FOR HYPOGLYCEMIA PO PRN (02:35)
[2022-05-14] MEDS ORDERED: GLUCOSE 40% GEL 15 GM TUBE PO PRN (02:35)
[2022-05-14] MEDS ORDERED: CETIRIZINE HCL 10 MG TABLET PO PRN (02:35)
[2022-05-14] MEDS ORDERED: tiZANidine HCL 4 MG TABLET PO PRN (02:35)
[2022-05-14] MEDS ORDERED: GLUCOSE 10 TAB/TUBE PO PRN (02:35)
[2022-05-14] MEDS ORDERED: DEXTROSE 50% 50 ML SYRINGE IV PRN (02:35)
[2022-05-14] MEDS ORDERED: LEVOTHYROXINE SODIUM 50 MCG TABLET PO SCH (06:30)
[2022-05-14 07:26] LABS: Basophils # (auto) 0.03 K/uL (0-0.2); Basophils % (auto) 0.6 %; Eosinophils % (auto) 1.9 %; Hematocrit (blood only) 35.7 % (34.1-44.9); Hemoglobin 11.4 g/dl (12.0-16.0); Immature Granulocytes # (auto) 0.01 K/uL (0.00-0.02); Immature Granulocytes % (auto) 0.2 %; Lymphocytes # (auto) 0.94 K/uL (1.2-3.4); Lymphocytes % (auto) 18.2 %; Mean Corpuscular Hemoglobin 27.7 pg (25.0-34.0); Mean Corpuscular Hgb Conc 31.9 g/dL (32.0-36.0); Mean Corpuscular Volume 86.9 fL (80.0-100.0); Monocytes # (auto) 0.38 K/uL (0.24-0.82); Monocytes % (auto) 7.4 %; Neutrophils # (auto) 3.71 K/uL (1.4-6.5); Neutrophils % (auto) 71.7 %; Platelet Count 170 K/uL (130-400); RDW Coefficient of Variation 14.9 % (11.5-14.5); RDW Standard Deviation 47.2 fL (36.4-46.3); Red Blood Count 4.11 M/uL (3.93-5.22); White Blood Count 5.17 K/ul (4.8-10.8)
[2022-05-14 08:06] LABS: Albumin Level 3.6 gm/dl (3.4-5.0); Calcium 8.6 mg/dl (8.5-10.1); Potassium 4.2 mmol/L (3.5-5.1)
[2022-05-14] MEDS: INSULIN ASPART PER UNIT SC SCH ×2 (08:22→12:45)
[2022-05-14 08:27] LABS: Albumin Globulin Ratio 1.6 (0.9-2); BUN Creatinine Ratio 17.9 (10-20); Creatinine Clr Calc Pharmacy 78.6 ml/min; Est GFR (African American) 88.2 ml/min; Est GFR (Non-African American) 76.1 ml/min; Globulin 2.3 gm/dl (2.5-4.0); Total Protein 5.9 gm/dl (6.0-8.3)
[2022-05-14] MEDS: ISOSORBIDE MONO EXTENDED REL 30 MG TABCR PO SCH ×2 (08:40→10:58)
[2022-05-14] MEDS: LOSARTAN POTASSIUM 50 MG TAB PO SCH ×2 (08:40→10:59)
[2022-05-14] MEDS ORDERED: ROSUVASTATIN CALCIUM 20 MG TAB PO SCH (09:00)
[2022-05-14] MEDS ORDERED: PREGABALIN 75 MG CAP PO SCH (09:00)
[2022-05-14] MEDS ORDERED: PANTOprazole 40 MG TAB PO SCH (09:00)
[2022-05-14] MEDS ORDERED: dilTIAZem HCL 120 MG CAPCR PO SCH (09:00)
[2022-05-14] MEDS ORDERED: DULoxetine HCL 60 MG CAP PO SCH (09:00)
[2022-05-14] MEDS ORDERED: MAGNESIUM OXIDE 400 MG TAB PO SCH (09:00)
[2022-05-14] MEDS ORDERED: LIDOCAINE 5% OINT 30 GM TUBE TOP SCH (09:00)
[2022-05-14] MEDS ORDERED: METOPROLOL TARTRATE 25 MG TAB PO SCH (09:00)
[2022-05-14] MEDS ORDERED: ASPIRIN 81 MG ECTAB PO SCH (09:00)
[2022-05-14] MEDS: MAGNESIUM SULFATE / D5W 1 GM/100 ML BAG IV SCH ×2 (09:40→11:13)
[2022-05-14 10:00] LABS: Estimated Average Glucose 140 mg/dl; Hemoglobin A1C 6.5 % (4.5-5.6)
[2022-05-14] MEDS ORDERED: ETODOLAC 500 MG PO SCH (10:00)
[2022-05-14] MEDS ORDERED: LOSARTAN POTASSIUM 25 MG TAB PO SCH (11:00)
[2022-05-14] MEDS ORDERED: ISOSORBIDE MONO EXTENDED REL 30 MG TABCR PO SCH (11:00)
--- NOTE | 2022-05-14 12:16 | XCELERA ---
[id number]
--- NOTE | 2022-05-14 13:50 | Cardiology Consultation ---
Date of Consultation May 14, 2022 Assessment & Plan (1) Syncope: (2) Hypotension: (3) Orthostatic hypotension: (4) CAD (coronary artery disease): (5) Hypertension: (6) Dyslipidemia: Plan ASSESSMENT/PLAN: 1. Syncope: Based on her description and blood pressure measurements at her home by herself, EMS, and then on presentation here, syncope likely due to symptomatic hypotension/orthostatic hypotension. Recommend discontinuing losartan. She states that diltiazem and metoprolol have been used for issues with tachycardia with her primary condominium association manager. If she continues to have symptoms as an outpatient, could consider increasing metoprolol and discontinuing diltiazem, which may have more effect on her blood pressure compared to metoprolol. Recommended compression stockings and remain well- hydrated. Change positions slowly. If continued symptoms as an outpatient or symptoms at rest, without changing positions, would then consider outpatient monitor, which can be arranged by her primary condominium association manager [facility]. 2. Hypotension/orthostatic hypotension: Was notably hypotensive on presentation and even more so at home prior to presentation. Recommend discontinuation of losartan as noted above. Remain well-hydrated. Further adjustments may need to occur as an outpatient. Blood pressure normal currently, but her medications were staggered today, receiving some of them later than usual. 3. CAD: No angina, despite documented CAD. High-sensitivity troponin negative. Continue aspirin, high intensity statin therapy, beta-todd. She is on Imdur for chronic and stable intermittent chest discomfort. Continue risk factor modification. 4. Hypertension: Has a history of hypertension but has been more notably normotensive and hypotensive. Plan as above. 5. Dyslipidemia: Continue high intensity statin therapy. Goal LDL <70. [facility]. 6. Disposition: She can be discharged home from a cardiac perspective. She has follow-up with her PCP next week, at which time her blood pressure can be reevaluated also losartan. Patient care communicated with primary hospitalist service, Dr. Wiley and [facility]. Follow-up with [place] condominium association manager on discharge. Thank you for allowing me to participate in the care of your patient. Please call for any other questions or concerns. Sincerely, John Hernandez M.D. History of Present Illness Reason for Consultation: Syncope Requesting Physician: [facility] Attending Physician: Luan Kenny MD History of Present Illness Ms. Nichols is a pleasant 61-year-old female with a history significant for CAD, hypertension, dyslipidemia, hypothyroidism, and lumbar stenosis with radiculopathy. She has been seen in the office setting by Dr. Borja, and more recently has followed with the [place] cardiology. She has had the following studies/procedures: 1. Cardiac cath 08/27/2020 [facility]: Proximal LAD 30 to 40%. Mid LAD 40%. D1 small to medium caliber ostial 70%. Proximal circumflex 30%. Dominant RCA. Mid RCA 60%. LVEDP 5. 2. Echo 05/14/2022: Normal LV size, wall motion, systolic function. EF 60 to 65%. Moderate LVH. No significant valvular abnormalities. She was admitted on 05/14/2022 following a syncopal event. She admits that she had syncope in April 2021 and was found to be hypotensive. This occurred shortly after having multiple cardiac medications initiated for elevated heart rate. She has been on diltiazem and metoprolol while more chronically being on losartan for hypertension. Following this event and a hospitalization in [facility], losartan was reduced to 25 mg daily. She denies any further syncope until yesterday. Since that time however she has experienced lightheadedness often and visual changes when she gets up from a seated position or bends over from a standing position and then once again standing upright. She states that she remains well-hydrated. She has been told in the past to consume more sodium. Yesterday when she woke up in the morning, she felt "weird" and "off." She noted blurry vision and lightheadedness. She was watching TV and when she stood up to walk to the restroom, she woke up on the floor. She checked her blood pressure after waking and found the systolic to be 57. She checked it twice and found to be quite low both times. She called 911 and she reports that EMS found her blood pressure to be quite low as well. On presentation here, her blood pressure was 84/57 initially and as low as 71/54 mmHg at 11 PM on 05/13/2022. In the avionics systems engineer hours on 05/14/2022, her blood pressure improved and has mostly been normotensive since then. Her antihypertensive agents have been staggered here. Nursing reports that diltiazem and metoprolol were given at approximately 8 AM and her losartan and nitrate therapy was administered at approximately 10 AM. She denies shortness of breath, palpitations, edema, melena, hematochezia, hematuria, nausea, vomiting, or diarrhea. No recent fevers or chills. She has intermittent chest discomfort and takes nitrate therapy and beta-todd. She is on a beta-todd exam for which she describes as fast heartbeat issues in the past. Review of systems: As above. Review of systems otherwise negative/unremarkable. Family history: Positive for CAD. Social history: She quit smoking approximately 30 years ago. She denies alcohol or drug abuse. She lives alone. 2 children. 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 She was unaccompanied in her hospital room. Allergies Allergy/AdvReac Type Severity Reaction Status Date / Time nickel Allergy Intermediate Hives Verified 05/14/22 00:59 Home Medications Medication Instructions Recorded Confirmed Type aspirin 81 mg tablet,delayed 81 mg PO DAILY 08/10/20 05/14/22 History release cetirizine 10 mg tablet 10 mg PO BID PRN Other 08/10/20 05/14/22 History duloxetine 60 mg capsule,delayed 60 mg PO DAILY neuropathy 08/10/20 05/14/22 History release etodolac 500 mg tablet 500 mg PO BID 08/10/20 05/14/22 History metformin 500 mg tablet 1,000 mg PO BID 08/10/20 05/14/22 History omeprazole 20 mg capsule,delayed 20 mg PO DAILY 08/10/20 05/14/22 History release isosorbide mononitrate 30 mg 30 mg PO DAILY #30 tabs 08/27/20 05/14/22 Rx tablet,extended release 24 hr tizanidine 2 mg capsule 2 mg PO BID PRN MUSCLE SPASMS 02/20/21 05/14/22 History semaglutide 1 mg/dose (2 mg/1.5 2 mg subcut WK 09/06/21 05/14/22 History mL) subcutaneous pen injector blood sugar diagnostic (Accu-Chek 02/25/22 05/08/22 History Guide test strips) camphor-menthol 0.5 %-0.5 % lotion 1 applic topical TID 02/25/22 05/14/22 History diltiazem HCl 120 mg 120 mg PO DAILY 02/25/22 05/14/22 History capsule,extended release 12 hr lancets (Accu-Chek Softclix 02/25/22 05/08/22 History Lancets) lidocaine 5 % topical ointment 1 applic topical BID 02/25/22 05/14/22 History losartan 50 mg tablet 50 mg PO DAILY 02/25/22 05/14/22 History magnesium oxide 420 mg tablet 420 mg PO DAILY 02/25/22 05/14/22 History pregabalin 225 mg capsule 225 mg PO BID 02/25/22 05/14/22 History rosuvastatin 20 mg tablet 20 mg PO DAILY 02/25/22 05/14/22 History hydrocodone 7.5 mg-acetaminophen 1 tab PO Q8H PRN Pain 03/05/22 05/14/22 History 325 mg tablet metoprolol tartrate 25 mg tablet 25 mg PO DAILY 03/05/22 05/14/22 History diazepam 5 mg tablet (Valium) 5 mg PO TID PRN muscle spasm #3 05/13/22 05/14/22 Rx tabs levothyroxine 25 mcg tablet 25 mcg PO Q OTHER DAY 05/14/22 05/14/22 History levothyroxine 50 mcg tablet 50 mcg PO Q OTHER DAY 05/14/22 05/14/22 History Patient History Medical History (Updated 05/14/22 @ 13:54 by Baltazar Hernandez MD) CAD (coronary artery disease) Chest pain Dyslipidemia Hypertension Hypothyroid Sinus tachycardia Spinal stenosis, lumbar region with neurogenic claudication Surgical History H/O: hysterectomy partial History of cholecystectomy History of knee replacement Bilateral Hx of knee surgery Family History Mother Coronary heart disease Brother Coronary heart disease Social History Smoking Status: Never smoker Hx Alcohol Use: No Hx Substance Use: No Preferred Language: [place] Communication Ability: Effective Stove Mechanic Required: No Beliefs That Will Affect Care: None marital status: Current Living Situation: Alone current occupational status: unemployed Other Information That Helps Us Care for You: No Feels Safe at Home: Yes Safety Concerns: Feels Safe At This Time Assistive Devices: Cane and Walker Assistive Devices Comment: Uses cane or walker when experiencing increased back pain. Physical Exam Physical Exam: Gen.: No acute distress. Alert and oriented. HEENT: Anicteric sclera. Neck: No JVD. No bruits. Normal carotid upstrokes bilaterally. Cardiac: No ventricular heave. Regular. Normal S1-S2. No murmurs, rubs, or gallops. Pulmonary: Clear to auscultation bilaterally without wheezes, rales, or rhonchi. Abdomen: Soft, nontender, nondistended, with normoactive bowel sounds. No bruits noted. Extremities: 2+ radial pulses bilaterally. 2+ posterior tibialis pulses bilaterally. No edema or cyanosis. Psychiatric: Affect appears appropriate. Results & Data ([facility]) Vital Signs (Past 12 Hours) Vital Signs Temp Pulse Pulse Resp BP BP Pulse Ox 05/14/22 12:56 90 122/73 05/14/22 11:48 87 05/14/22 11:14 86 18 97/64 L 95 05/14/22 08:20 36.8 C 96 H 18 134/85 95 05/14/22 02:38 85 05/14/22 02:25 36.7 C 86 16 131/81 96 05/14/22 02:10 82 13 89 L 05/14/22 02:00 80 12 113/75 90 O2 Del Method 05/14/22 12:56 05/14/22 11:48 05/14/22 11:14 Room Air 05/14/22 08:20 Room Air 05/14/22 02:38 05/14/22 02:25 Room Air 05/14/22 02:10 05/14/22 02:00 Room Air Intake & Output 05/12/22 05/13/22 05/14/22 05/15/22 06:59 06:59 06:59 06:59 Intake Total 1500 / 1500 177.5 / 177.5 Balance 1500 / 1500 177.5 / 177.5 Weight 214 lb 15.211 oz Laboratory Results Laboratory Results - last 24 hr 05/13/22 05/13/22 05/13/22 19:36 19:36 19:36 WBC 6.97 RBC 4.83 Hgb 13.2 Hct 42.0 MCV 87.0 MCH 27.3 MCHC 31.4 L RDW Std Deviation 47.6 H RDW Coeff of Kamila 14.9 H Plt Count 231 MPV 10.5 Immature Gran % (Auto) 0.3 Neut % (Auto) 79.2 Lymph % (Auto) 13.6 [place] % (Auto) 5.0 Eos % (Auto) 1.3 Baso % (Auto) 0.6 Neut # (Auto) 5.52 Lymph # (Auto) 0.95 L [place] # (Auto) 0.35 Eos # (Auto) 0.09 Baso # (Auto) 0.04 Immature Gran # (Auto) 0.02 PT 10.9 INR 1.0 Sodium 136 Potassium 4.4 Chloride 103 Carbon Dioxide 26 Anion Gap 7 BUN 21 Creatinine 1.19 Est Cr Clr Drug Dosing 54.4 Est GFR ( Amer) 57.9 Est GFR (Non-Af Amer) 49.9 BUN/Creatinine Ratio 17.6 Glucose 121 H POC Glucose Estimat Average Glucose Hemoglobin A1c Calcium 9.4 Magnesium 1.7 Total Bilirubin 1.4 H AST 19 ALT 12 Alkaline Phosphatase 83 Troponin I High Sens 3.3 Total Protein 7.5 Albumin 4.5 Globulin 3.0 Albumin/Globulin Ratio 1.5 TSH Free T4 SARS-CoV-2 (PCR) Influenza Type A (PCR) Influenza Type B (PCR) RSV (RT-PCR) 05/13/22 05/13/22 05/14/22 19:36 23:56 00:30 WBC RBC Hgb Hct MCV MCH MCHC RDW Std Deviation RDW Coeff of Kamila Plt Count MPV Immature Gran % (Auto) Neut % (Auto) Lymph % (Auto) [place] % (Auto) Eos % (Auto) Baso % (Auto) Neut # (Auto) Lymph # (Auto) [place] # (Auto) Eos # (Auto) Baso # (Auto) Immature Gran # (Auto) PT INR Sodium Potassium Chloride Carbon Dioxide Anion Gap BUN Creatinine Est Cr Clr Drug Dosing Est GFR ( Amer) Est GFR (Non-Af Amer) BUN/Creatinine Ratio Glucose POC Glucose Estimat Average Glucose Hemoglobin A1c Calcium Magnesium Total Bilirubin AST ALT Alkaline Phosphatase Troponin I High Sens 2.4 Total Protein Albumin Globulin Albumin/Globulin Ratio TSH 21.297 H Free T4 0.65 SARS-CoV-2 (PCR) NEGATIVE Influenza Type A (PCR) Negative Influenza Type B (PCR) Negative RSV (RT-PCR) Negative 05/14/22 05/14/22 05/14/22 06:57 06:57 06:57 WBC 5.17 RBC 4.11 Hgb 11.4 L Hct 35.7 MCV 86.9 MCH 27.7 MCHC 31.9 L RDW Std Deviation 47.2 H RDW Coeff of Kamila 14.9 H Plt Count 170 MPV 10.0 Immature Gran % (Auto) 0.2 Neut % (Auto) 71.7 Lymph % (Auto) 18.2 [place] % (Auto) 7.4 Eos % (Auto) 1.9 Baso % (Auto) 0.6 Neut # (Auto) 3.71 Lymph # (Auto) 0.94 L [place] # (Auto) 0.38 Eos # (Auto) 0.10 Baso # (Auto) 0.03 Immature Gran # (Auto) 0.01 PT INR Sodium 139 Potassium 4.2 Chloride 110 H Carbon Dioxide 27 Anion Gap 2 L BUN 15 Creatinine 0.84 D Est Cr Clr Drug Dosing 78.6 Est GFR ( Amer) 88.2 Est GFR (Non-Af Amer) 76.1 BUN/Creatinine Ratio 17.9 Glucose 102 H POC Glucose Estimat Average Glucose 140 Hemoglobin A1c 6.5 H Calcium 8.6 Magnesium Total Bilirubin 1.0 AST 17 ALT 10 Alkaline Phosphatase 68 Troponin I High Sens Total Protein 5.9 L D Albumin 3.6 Globulin 2.3 L Albumin/Globulin Ratio 1.6 TSH Free T4 SARS-CoV-2 (PCR) Influenza Type A (PCR) Influenza Type B (PCR) RSV (RT-PCR) 05/14/22 05/14/22 07:44 11:38 WBC RBC Hgb Hct MCV MCH MCHC RDW Std Deviation RDW Coeff of Kamila Plt Count MPV Immature Gran % (Auto) Neut % (Auto) Lymph % (Auto) [place] % (Auto) Eos % (Auto) Baso % (Auto) Neut # (Auto) Lymph # (Auto) [place] # (Auto) Eos # (Auto) Baso # (Auto) Immature Gran # (Auto) PT INR Sodium Potassium Chloride Carbon Dioxide Anion Gap BUN Creatinine Est Cr Clr Drug Dosing Est GFR ( Amer) Est GFR (Non-Af Amer) BUN/Creatinine Ratio Glucose POC Glucose 86 115 H Estimat Average Glucose Hemoglobin A1c Calcium Magnesium Total Bilirubin AST ALT Alkaline Phosphatase Troponin I High Sens Total Protein Albumin Globulin Albumin/Globulin Ratio TSH Free T4 SARS-CoV-2 (PCR) Influenza Type A (PCR) Influenza Type B (PCR) RSV (RT-PCR) Diagnostic Findings Telemetry personally reviewed: Sinus rhythm. No arrhythmia. ECGs personally reviewed: ECG 05/13/2022 at 2008: Sinus rhythm first-degree AV block 79 bpm. ECG 05/14/2022 at 2:47 AM: Sinus rhythm first-degree AV block 79 bpm. Echo report reviewed as noted above in HPI. Previous cath report reviewed as noted above in HPI. History and physical report reviewed. Labs reviewed and notable for elevated TSH, mild anemia and normal renal function. CT head report from 05/13/2022 reviewed: No acute intracranial abnormality per radiology. Chest x-ray 05/13/2022: Image personally reviewed: No obvious infiltrate. No significant pleural effusion. Per radiology, no acute disease in the chest. Medications Administered Current Inpatient Medications Acetaminophen (Acetaminophen 325 Mg Tab) 650 mg PO Q4H PRN PRN Reason: Pain or Fever Stop: 06/13/22 02:34 Hydrocodone Bitart/Acetaminophen (Hydrocodone/Acetaminophen 7.5/325mg Tab) 1 tab PO Q8H PRN PRN Reason: Moderate Pain Stop: 05/28/22 02:34 Last Admin: 05/14/22 05:08 Dose: 1 tab Aspirin (Aspirin 81 Mg Ectab) 81 mg PO DAILY [facility] Stop: 06/13/22 08:59 Last Admin: 05/14/22 08:41 Dose: 81 mg Cetirizine HCl (Cetirizine Hcl 10 Mg Tablet) 10 mg PO BID PRN PRN Reason: Other Stop: 06/13/22 02:34 Dextrose (Dextrose 50% 50 Ml Syringe) 25 - 50 ml IV UD PRN; Protocol PRN Reason: Hypoglycemia Protocol Stop: 06/13/22 02:34 Diltiazem HCl (Diltiazem Hcl 120 Mg Capcr) 120 mg PO DAILY [facility] Stop: 06/13/22 08:59 Last Admin: 05/14/22 08:41 Dose: 120 mg Duloxetine HCl (Duloxetine Hcl 60 Mg Cap) 60 mg PO DAILY [facility] Stop: 06/13/22 08:59 Last Admin: 05/14/22 08:41 Dose: 60 mg Glucagon (Glucagon For Inj 1 Mg Vial) 1 mg SQ UD PRN; Protocol PRN Reason: Hypoglycemia Protocol Stop: 06/13/22 02:34 Glucose (Glucose 40% Gel 15 Gm Tube) 15 - 30 gm PO UD PRN; Protocol PRN Reason: Hypoglycemia Protocol Stop: 06/13/22 02:34 Glucose (Glucose 10 Tab/Tube) 4 - 8 tab PO UD PRN; Protocol PRN Reason: Hypoglycemia Treatment Stop: 06/13/22 02:34 Insulin Aspart (Insulin Aspart Per Unit) 0 units SC [facility] Stop: 06/13/22 07:29 Last Admin: 05/14/22 12:45 Dose: 1 units Isosorbide Mononitrate (Isosorbide [place] Extended Rel 30 Mg Tabcr) 15 mg PO DAILY [facility] Stop: 06/13/22 10:59 Last Admin: 05/14/22 11:06 Dose: 15 mg Levothyroxine Sodium (Levothyroxine Sodium 25 Mcg Tablet) 25 mcg PO Q2D@0630 [facility] Stop: 06/14/22 06:29 Levothyroxine Sodium (Levothyroxine Sodium 50 Mcg Tablet) 50 mcg PO Q2D@0630 [facility] Stop: 06/13/22 06:29 Last Admin: 05/14/22 05:05 Dose: 50 mcg Lidocaine (Lidocaine 5% Oint 30 Gm Tube) 1 appln TOP BID [facility] Stop: 06/13/22 08:59 Last Admin: 05/14/22 08:41 Dose: 1 appln Losartan Potassium (Losartan Potassium 25 Mg Tab) 25 mg PO DAILY [facility] Stop: 06/13/22 10:59 Last Admin: 05/14/22 11:06 Dose: 25 mg Metoprolol Tartrate (Metoprolol Tartrate 25 Mg Tab) 25 mg PO DAILY [facility] Stop: 06/13/22 08:59 Last Admin: 05/14/22 08:41 Dose: 25 mg Miscellaneous (Carbohydrates For Hypoglycemia ) 15 - 30 gm PO UD PRN PRN Reason: Hypoglycemia Protocol Stop: 06/13/22 02:34 *Etodolac 500 Mg Tab *Non-Formulary Patient's Own Med 1 each PO BID [facility]; Protocol Stop: 06/13/22 09:59 Last Admin: 05/14/22 10:29 Dose: 1 tab Ondansetron HCl (Ondansetron Inj 2 Mg/Ml 2 Ml Vial) 4 mg IV Q6H PRN PRN Reason: Nausea Stop: 06/13/22 02:34 Pantoprazole Sodium (Pantoprazole 40 Mg Tab) 40 mg PO DAILY [facility] Stop: 06/13/22 08:59 Last Admin: 05/14/22 08:40 Dose: 40 mg Pregabalin (Pregabalin 75 Mg Cap) 225 mg PO BID [facility] Stop: 06/13/22 08:59 Last Admin: 05/14/22 08:40 Dose: 225 mg Rosuvastatin Calcium (Rosuvastatin Calcium 20 Mg Tab) 20 mg PO DAILY [facility] Stop: 06/13/22 08:59 Last Admin: 05/14/22 08:41 Dose: 20 mg Tizanidine HCl (Tizanidine Hcl 4 Mg Tablet) 2 mg PO BID PRN PRN Reason: MUSCLE SPASMS Stop: 06/13/22 02:34 PG Care Time/CCT Total # of Minutes Spent Total Time Spent with Patient: Total time spent is greater than 50% in coordination of care (as documented) at patient's floor/unit and/or counseling patient: Coding Level of Care Code INP/OBS CONSULT LVL 4, 60 MIN Diagnoses Syncope R55 Hypotension I95.9 Orthostatic hypotension I95.1 CAD (coronary artery disease) I25.10 Hypertension I10 Dyslipidemia E78.5
--- NOTE | 2022-05-14 14:50 | Discharge Summary ---
Date of Service May 14, 2022 Admission HPI Per Admitting Provider The patient is a 61-year-old female with a past medical history including hypothyroidism, greater trochanteric bursitis, alopecia, myofascial pain, lumbar spinal stenosis with neurogenic claudication, thoracic facet syndrome, hypertension, dyslipidemia, chest pain syndrome, diabetes mellitus, DJD and hypertension. The patient was found to be hypotensive in the emergency department with systolic blood pressure as low as 71/54, did respond to fluid boluses, however, blood pressure was not easily maintained above the low to mid 90s systolic, which is also accompanied by intermittent dizziness and fatigue. At the time my examination, the patient's blood pressure did relatively suddenly improve, and symptoms resolved, as her systolic blood pressure went into the 114 range. Principal Diagnosis Syncope most likely related to orthostatic hypotension Discharge Exam PHYSICAL EXAM: General: awake, alert, no apparent distress Head: Normocephalic, atraumatic ENT: PERRL, EOMI, no pharyngeal exudate, mucous membranes moist Neuro: AAO x 3, speech clear and appropriate, strength intact bilaterally 5/5, sensation intact and equal all extremities and dermatomes, no pronator drift Chest: equal rise and fall of the chest, no accessory muscle use, no heaves or thrills, Clear to auscultation, on room air, Cardiac: Regular rate and rhythm, telemetry reviewed- NSR, skin warm dry, cap refill <3 seconds, peripheral pulses +2 no JVD, no murmur, no edema GI: NABS x 4 quadrants, soft, nontender to palpation, no rebound, guarding or tenderness : Spontaneously voiding, no pain, no CVA tenderness, Psych: Normal mood and affect Skin: no rash or erythema Discharge Data Allergies Allergy/AdvReac Type Severity Reaction Status Date / Time nickel Allergy Intermediate Hives Verified 05/22/22 13:08 Consultations 05/14/22 00:26 ED Decision to Admit Stat 05/14/22 08:15 Consult Cardiology Routine Procedures Performed NONE Ordered Studies 05/13/22 20:25 CT cervical spine wo con Stat CT head/brain wo con Stat Hospital Course (1) Syncope: Syncope with collapse/hypertension/hypotension while in the ED/history of near syncope- The patient will be admitted to telemetry for serial cardiac enzymes, serial EKG's, cardiac rhythm monitoring and a 2-D echocardiogram with Doppler- completed- normal EF and valves with no RWMA. Troponin normal at 3.3- no ECG changes Continue aspirin 81 mg daily, diltiazem extended release high 20 mg daily, isosorbide mononitrate 30 mg daily. Discontinue losartan Follow vital signs closely (2) Hypotension: Required IVF on arrival and BP normalized with no further interventions Tolerated home medications prior to discharge - Discontinue Losartan (3) Hypothyroidism: Hypothyroidism- She reports her dosing has been adjusted in outpatient setting. TSH is increased further from 6.06 on 03/13/2022 to 21.297 today Will have her outpatient physician further titrate upward her levothyroxine dosing. This may be contributing to generalized fatigue Recently adjusted as above- no adjustment at this time follow up with PCP and endocrinology at regular scheduled (4) Hypertension: Losartan Discontinued - RE-introduce Metoprolol - Keep BP log at home as well as symptoms (5) Dyslipidemia: Hyperlipidemia- Continue simvastatin 20 mg daily Check a fasting lipid panel (6) Diabetes mellitus: Diabetes mellitus- Hold metformin and semaglutide Place on Accu-Cheks before meals and at bedtime with NovoLog coverage per scale Check hemoglobin A1c Plan Peripheral neuropathy- Continue pregabalin 225 mg p.o. twice daily and duloxetine 60 mg daily Hold as needed diazepam for now Cannot rule out that some orthostasis may be contributed to by these medications Lumbar radiculopathy0 Acetaminophen 650 mg p.o. every 6 hours as needed for mild pain or fever Continue hydrocodone/acetaminophen 7.5/325, 1 p.o. every 8 hours as needed for moderate pain Total Time Total Time Spent Total Time Spent (In Minutes): 45 Discharge Plan Discharge Items Patient Disposition: Home - Self-Care Reason For Visit: SYNCOPE, COLLAPSE, HYPOTENSION Discharge Diagnosis: Syncope most consistent with orthostasis Activity: Resume your previous activity Activity Comment: none- continue as you are doing with taking it slow and steady Non-emergency contact: Primary Care Provider Call non-emergency contact if: you have any medication questions and your symptoms worsen Follow-up/Referrals: Jonny Lyman, [employer] [Primary Care Provider] - (Patient has made follow up appointment with PCP and Cardiology. ) Diet: Heart Healthy Addtl Attending Provider Instructions: During this hospitalization you had the following medications adjusted or discontinued: 1.) Discontinued Losartan (this was for your blood pressure. Recommend doing the following: Start keeping a blood pressure log 3 times per day (morning, noon, night) for the next 2 weeks until follow up with your Primary Care Phyician. Note when times are that you feel dizzy or light headed. If your blood pressure is greater that 140-150/90 notify your Primary care doctor noting that we stopped your Losartan. You also state that you have a cardiology appointment scheduled within the next 2 weeks as well. Take your blood pressure log and symptom log to him as well. If you pass out again- please notify your Primary Care provider and you Etl Tester for further evaluation During this stay you had an ECHOcardiogram performed- this was interpreted with EF 60-65% (this is normal) and no wall motion abnormalities, and Moderate Left Ventricular Hypertrophy (enlargement). Your valves in your heart were also normal. You were seen by a filling winder. (Dr. Hernandez) and discussed symptoms and monitoring. As above this eppisode was thought to be more consistent with orthostasis - related to your blood pressure- and the Losartan has been stopped. It was a pleasure taking care of you. Please follow up with the above and should symptoms worsen or return please either go to the EMD or get in touch with your above providers. Pending Studies at Discharge: No Stand-Alone Forms: My [facility], Smoking Cessation Medications and DC Order Prescriptions: Continued tizanidine 2 mg capsule 2 mg PO BID PRN (Reason: MUSCLE SPASMS) metoprolol tartrate 25 mg tablet 25 mg PO DAILY aspirin 81 mg tablet,delayed release (DR/EC) 81 mg PO DAILY cetirizine 10 mg tablet 10 mg PO BID PRN (Reason: Other) duloxetine 60 mg capsule,delayed release(DR/EC) 60 mg PO DAILY etodolac 500 mg tablet 500 mg PO BID metformin 500 mg tablet 1,000 mg PO BID omeprazole 20 mg capsule,delayed release(DR/EC) 20 mg PO DAILY semaglutide 1 mg/dose (2 mg/1.5 mL) pen injector 2 mg subcut WK camphor-menthol 0.5-0.5 % lotion 1 applic topical TID diltiazem HCl 120 mg capsule,extended release 12 hr 120 mg PO DAILY lidocaine 5 % ointment 1 applic topical BID magnesium oxide 420 mg tablet 420 mg PO DAILY pregabalin 225 mg capsule 225 mg PO BID rosuvastatin 20 mg tablet 20 mg PO DAILY isosorbide mononitrate 30 mg tablet extended release 24 hr 30 mg PO DAILY Qty: 30 0RF levothyroxine 25 mcg tablet 25 mcg PO Q OTHER DAY Rx Instructions: ALTERNATES WITH 50 MG QOD. levothyroxine 50 mcg tablet 50 mcg PO Q OTHER DAY Rx Instructions: ALTERNATES WITH 25 MG QOD. Discontinued hydrocodone-acetaminophen 7.5-325 mg tablet 1 tab PO Q8H PRN (Reason: Pain) diazepam [Valium] 5 mg tablet 5 mg PO TID PRN (Reason: muscle spasm) Qty: 3 0RF Rx Instructions: 1 tablet PM before, 1 tablet 2hr prior, 1 tablet 1hr prior to procedure (DME) Accu-Chek Guide test strips Strip See Rx Instructions .Route Rx Instructions: Use to test blood sugars on Thursday and Thursday (DME) lancets [Accu-Chek Softclix Lancets] Misc See Rx Instructions .Route Rx Instructions: Use to test blood sugars Thursday and Thursday losartan 50 mg tablet 50 mg PO DAILY Discharge Orders: Discharge Order (Routine); Ordered 05/14/22 Ordered By: Sky Wen/Other Patient Handouts: Managing Type 2 Diabetes Admission Data Admit Date/Time: 05/14/22 01:29 Attending Provider: Luan Kenny Admit Provider: Luan Kenny Primary Care Provider: Jonny Lyman Other Providers: Luan Kenny ; Baltazar Hernandez ; [facility] Other Interventions: Discharge Summary Assessment (RN) Last Done: 05/14/22 14:54 Supervising Physician Co-Signing Physician Notes Attending Attestation & Discharge Note: Pt seen/examined, chart reviewed, discharge care plan d/w JAYMIE [place]. I agree w/ the potts components of his documentation. 61yo female with history of T2DM, HTN, hypothyroidism, CAD presented with syncope at home. Had prodromal dizziness and visual change prior to the event. Had documented SBPs that were VERY LOW - 50s at home, and as low as 70s here at [facility]. Hypotension improved/resolved with IV fluids. [facility] - etiology of syncope 2nd to hypotension. Advised to stop losartan. Echo showed normal EF and normal valve function. No infectious process was found while here. Recommended to patient that if syncopal episodes continue she should have a cortisol level checked. Advised that when she checks her BPs at home to obtain some in the standing position. Discharge exam - gen - NAD neck - no JVD heart - RRR, s1 s2, no murmur lungs - CTA b/l abd - soft NT ND BS+ ext - pulses 2+ b/l Gaetano Wiley MD Coding Level of Care Code INP/OBS EV SAME DAY LV 1,45MIN Diagnoses Syncope R55 Hypotension I95.9 Hypothyroidism E03.9 Hypertension I10 Dyslipidemia E78.5 Diabetes mellitus E11.9
[2022-05-15] MEDS ORDERED: LEVOTHYROXINE SODIUM 25 MCG TABLET PO SCH (06:30)
--- NOTE | 2022-05-15 06:42 | Electrocardiogram Report ---
Test Reason : Blood Pressure : / mmHG Vent. Rate : 079 BPM Atrial Rate : 079 BPM P-R Int : 236 ms QRS Dur : 084 ms QT Int : 394 ms P-R-T Axes : 043 022 037 degrees QTc Int : 451 ms Sinus rhythm with 1st degree A-V block Low voltage QRS Cannot rule out Anterior infarct , age undetermined Abnormal ECG No previous ECGs available Confirmed by Baltazar Hernandez ([id number]) on 05/15/2022 6:42:08 AM Referred By: REFERRED SELF Confirmed By:Baltazar Hernandez
--- NOTE | 2022-05-15 20:58 | Electrocardiogram Report ---
Test Reason : Blood Pressure : / mmHG Vent. Rate : 079 BPM Atrial Rate : 079 BPM P-R Int : 220 ms QRS Dur : 090 ms QT Int : 394 ms P-R-T Axes : 042 014 024 degrees QTc Int : 451 ms Sinus rhythm with 1st degree A-V block Low voltage QRS Borderline ECG When compared with ECG of 13-MAY-2022 20:08, No significant change was found Confirmed by Baltazar Hernandez ([id number]) on 05/15/2022 8:57:33 PM Referred By: REFERRED SELF Confirmed By:Baltazar Hernandez
== END 2022-05-14 15:22 | disposition home or self-care (01) | DRG 312 ==
LOC: ED 19:59 → 4W 05-14 01:29

== ENCOUNTER 2022-06-13 11:33 | Inpatient (IN) ==
[2022-06-13] MEDS ORDERED: SODIUM CHLORIDE 0.9% 1000ML 1,000 ML IV ONE ×2 (11:41→13:40)
--- NOTE | 2022-06-13 11:44 | Emergency Department Note ---
Impression & Plan Acute hypotension, Near syncope, Closed left tibial fracture, ALEXANDRA (acute kidney injury) ED Provider Note NAME: LILLY BROWNING AGE: 61 SEX: F : 1960 ARRIVES VIA: Ambulance INFORMANT: Patient, EMS ED PROVIDER(S): Tomas Chopra DO CHIEF COMPLAINT: Weakness HPI: The patient is a 61-year-old female who presented to the emergency department by ambulance. I did receive a prehospital notification about the patient. The patient was hypotensive prior to arrival. The patient states that she has a long history of syncope as well as hypotension. She had a history of hypothyroid in the past. She had an episode today where she went to stand up quickly and felt very dizzy and lightheaded. She fell to the ground injuring her left knee. She also states that she has mid back pain which is not new for her she has this chronically. She also complains of difficulty breathing. She was treated with a DuoNeb prior to arrival. She was also given IV fluids for hypotension by the internal medicine physician. The patient states that she feels somewhat imp roved at this time. She denies having any black or bloody bowel movements. She denies having any recent trauma. She does not take blood thinners even though she has a history of paroxysmal atrial fibrillation. ROS: See above HPI for pertinent positives & negatives. A total of 10 systems reviewed and were otherwise negative. PAST MEDICAL HISTORY: See Below PAST SURGICAL HISTORY: See Below FAMILY HISTORY: See Below SOCIAL HISTORY: See Below HOME MEDICATIONS: See Below ALLERGIES: See Below VITALS: See Below PHYSICAL EXAMINATION: GENERAL: Patient is awake alert in no acute distress patient is resting comfortably and showing no signs of anxiety EYES: The conjunctivae are clear. The pupils are round and reactive. EARS, NOSE, MOUTH AND THROAT: The nose is without any evidence of any deformity. Mucous membranes are dry. NECK: The neck is nontender and supple. RESPIRATORY: Normal respiratory effort is noted there is no evidence of wheezing rhonchi or rales CARDIOVASCULAR: Regular rate and rhythm noted there no murmurs rubs or gallops normal S1 normal S2. GASTROINTESTINAL: The abdomen is soft. Abdomen is nontender. MUSCULOSKELETAL/EXTREMITIES: The patient is significant pain with swelling over the left knee. She has tenderness in the infrapatellar region. The patient is able to hold the leg off of the bed however this is very painful for her right over the knee. SKIN: Skin is warm and dry. There is no significant pedal edema. Pulses are symmetric in both wrists and feet. NEUROLOGIC: Patient is awake alert and oriented x3. There was no facial droop. Speech was clear. MEDICAL DECISION MAKING: The patient is a 61-year-old female who presented to the emergency department after having a near syncopal episode. The patient was bent forward and then when she went to stand up she felt very dizzy. She fell onto her left knee. She has a history of knee surgery in the past. She appears to have a p eriprosthetic fracture. The patient was placed into a knee immobilizer. I discussed the patient's laboratory and radiographic studies with her. She was treated with multiple fluid boluses. She has no problem with mentation but still has hypotension. I discussed the patient's condition with the on-call [facility] hospitalist. They have agreed to evaluate the patient in the emergency department for further management and disposition. The patient does not appear to have any definite infectious source. She has had problems with labile blood pressure in the past. Triage Nursing notes reviewed. Prior medical records reviewed Vital Signs: reviewed and remarkable for hypotension. Differential diagnosis: Infection, dehydration, metabolic abnormality, hypo/hyperglycemia, electrolyte disturbance, anemia, hypoxia, cardiac sources, intracerebral event, toxicologic, neurologic, as well as other pathologies. ER treatment provided: See below Diagnostics interpreted by me: ECG: EKG was obtained in the emergency department. My interpretation is sinus rhythm at 75 bpm. First-degree AV block was noted. Inferior Q waves were appreciated. There is no acute ST segment abnormalities noted. There is no ectopy. This was compared to a tracing from May 14, 2022. No changes were noted. Cardiac Monitoring: An order was placed for continuous cardiac monitoring. The monitor shows a rate of 74 bpm with sinus rhythm. Laboratory studies: As stated above and show below. Imaging studies: See below. Radiographic imaging was reviewed by myself Consultation(s): I discussed this case with Dr. [facility]ide[facility]. Past [facility]/Surg History Medical History Alopecia CAD (coronary artery disease) Chest pain Dyslipidemia Hypertension Hypothyroid Sinus tachycardia Spinal stenosis, lumbar region with neurogenic claudication Thyroid dysfunction Surgical History H/O: hysterectomy partial History of cholecystectomy History of knee replacement Bilateral Hx of knee surgery Family History Mother Coronary heart disease Brother Coronary heart disease Social History Smoking Status: Never smoker Hx Alcohol Use: No Hx Substance Use: No Preferred Language: Tajik Communication Ability: Effective Helminthologist Required: No Beliefs That Will Affect Care: None marital status: Current Living Situation: Alone current occupational status: unemployed Feels Safe at Home: Yes Assistive Devices: Cane and Walker Allergies Allergies Allergy/AdvReac Type Severity Reaction Status Date / Time nickel Allergy Intermediate Hives Verified 05/22/22 13:08 Home Meds Home Medications Medication Instructions Recorded Confirmed aspirin 81 mg tablet,delayed 81 mg PO DAILY 08/10/20 05/22/22 release cetirizine 10 mg tablet 10 mg PO BID PRN Other 08/10/20 05/22/22 duloxetine 60 mg capsule,delayed 60 mg PO DAILY neuropathy 08/10/20 05/22/22 release etodolac 500 mg tablet 500 mg PO BID 08/10/20 05/22/22 metformin 500 mg tablet 1,000 mg PO BID 08/10/20 05/22/22 omeprazole 20 mg capsule,delayed 20 mg PO DAILY 08/10/20 05/22/22 release tizanidine 2 mg capsule 2 mg PO BID PRN MUSCLE SPASMS 02/20/21 05/22/22 semaglutide 1 mg/dose (2 mg/1.5 2 mg subcut WK 09/06/21 05/22/22 mL) subcutaneous pen injector camphor-menthol 0.5 %-0.5 % lotion 1 applic topical TID 02/25/22 05/22/22 diltiazem HCl 120 mg 120 mg PO DAILY 02/25/22 05/22/22 capsule,extended release 12 hr lidocaine 5 % topical ointment 1 applic topical BID 02/25/22 05/22/22 magnesium oxide 420 mg tablet 420 mg PO DAILY 02/25/22 05/22/22 pregabalin 225 mg capsule 225 mg PO BID 02/25/22 05/22/22 rosuvastatin 20 mg tablet 20 mg PO DAILY 02/25/22 05/22/22 metoprolol tartrate 25 mg tablet 25 mg PO DAILY 03/05/22 05/22/22 levothyroxine 25 mcg tablet 25 mcg PO Q OTHER DAY 05/14/22 05/22/22 levothyroxine 50 mcg tablet 50 mcg PO Q OTHER DAY 05/14/22 05/22/22 Previous Rx's Medication Instructions Recorded isosorbide mononitrate 30 mg 30 mg PO DAILY #30 tabs 08/27/20 tablet,extended release 24 hr Results & Data (ED) Vital Signs Vital Signs - 24 hr 06/13/22 11:42 06/13/22 11:41 06/13/22 11:48 Temperature 36.4 C L Temperature Source Oral Pulse Rate 86 82 Pulse Rate [Apical] 79 Respiratory Rate 20 20 18 Respiratory Effort / Characteristics Non-Labored Spontaneous Non-Labored Spontaneous Respiratory Depth Normal Normal Blood Pressure 79/49 L Blood Pressure [Right Arm] 78/54 L Blood Pressure Mean 59 Blood Pressure Mean [Right Arm] 62 Pulse Oximetry 99 98 98 Oxygen Delivery Method Room Air Room Air Sepsis Recent Fever Within 48 Hours No Sepsis New/Unexplained Change in Mental Status No Sepsis Action Taken by Nursing No Action Required 06/13/22 11:53 06/13/22 11:55 06/13/22 12:07 Temperature Temperature Source Pulse Rate Pulse Rate [Apical] 75 Respiratory Rate 18 Respiratory Effort / Characteristics Non-Labored Spontaneous Respiratory Depth Normal Blood Pressure Blood Pressure [Right Arm] 82/33 L 80/45 L Blood Pressure Mean Blood Pressure Mean [Right Arm] 49 56 Pulse Oximetry 98 95 Oxygen Delivery Method Room Air Room Air Sepsis Recent Fever Within 48 Hours Sepsis New/Unexplained Change in Mental Status Sepsis Action Taken by Nursing 06/13/22 12:12 06/13/22 12:30 06/13/22 13:07 Temperature Temperature Source Pulse Rate 75 Pulse Rate [Apical] 72 Respiratory Rate 16 Respiratory Effort / Characteristics Non-Labored Spontaneous Respiratory Depth Normal Blood Pressure Blood Pressure [Right Arm] 85/52 L 84/56 L Blood Pressure Mean Blood Pressure Mean [Right Arm] 63 65 Pulse Oximetry 96 Oxygen Delivery Method Room Air Sepsis Recent Fever Within 48 Hours Sepsis New/Unexplained Change in Mental Status Sepsis Action Taken by Nursing 06/13/22 13:31 06/13/22 14:04 Temperature Temperature Source Pulse Rate Pulse Rate [Apical] 67 74 Respiratory Rate 16 18 Respiratory Effort / Characteristics Non-Labored Spontaneous Non-Labored Spontaneous Respiratory Depth Normal Normal Blood Pressure Blood Pressure [Right Arm] 93/54 L 83/59 L Blood Pressure Mean Blood Pressure Mean [Right Arm] 67 67 Pulse Oximetry 94 93 Oxygen Delivery Method Room Air Room Air Sepsis Recent Fever Within 48 Hours Sepsis New/Unexplained Change in Mental Status Sepsis Action Taken by Half-Way Medications Current Medication List: was personally reviewed by me Laboratory Data Attestation: I reviewed the patient's lab results. 06/13/22 11:39 06/13/22 11:39 Lab Results 06/13/22 06/13/22 06/13/22 Range/Units 11:39 11:39 11:39 WBC 5.95 (4.8-10.8) K/ul RBC 4.05 L (4.20-5.40) M/uL Hgb 11.3 L (12.0-16.0) g/dl Hct 34.0 L (37.0-47.0) % MCV 84.0 (80.0-100.0) fL MCH 27.9 (25.0-34.0) pg MCHC 33.2 (32.0-36.0) g/dL RDW Std Deviation 47.1 H (36.4-46.3) fL RDW Coeff of Kamila 15.3 H (11.5-14.5) % Plt Count 192 (130-400) K/uL MPV 9.8 (9.4-12.4) fL Immature Gran % (Auto) 0.2 % Neut % (Auto) 47.7 % Lymph % (Auto) 40.5 % Clinton % (Auto) 9.6 % Eos % (Auto) 1.3 % Baso % (Auto) 0.7 % Neut # (Auto) 2.84 (1.40-6.50) K/uL Lymph # (Auto) 2.41 (1.2-3.4) K/uL Clinton # (Auto) 0.57 (0.11-0.59) K/uL Eos # (Auto) 0.08 (0-0.50) K/uL Baso # (Auto) 0.04 (0-0.2) K/uL Immature Gran # (Auto) 0.01 (0.01-0.20) K/uL PT 10.7 (9.0-12.0) Seconds INR 1.0 (0.9-1.1) APTT 23.4 (21.0-31.0) Seconds PTT Ratio 0.9 VBG pH VBG pCO2 VBG pO2 VBG HCO3 VBG O2 Saturation VBG Base Excess Barometric Pressure Sodium 137 (136-145) mmol/L Potassium 4.0 (3.5-5.1) mmol/L Chloride 106 (98-107) mmol/L Carbon Dioxide 24 (21-32) mmol/L Anion Gap 7 (3-11) BUN 33 H (6-23) mg/dl Creatinine 1.37 H (0.6-1.2) mg/dl Est Cr Clr Drug Dosing 48.0 ml/min Est GFR ( Amer) 48.8 ml/min Est GFR (Non-Af Amer) 42.1 ml/min BUN/Creatinine Ratio 24.1 H (10-20) Glucose 109 H (70-99(Fasting)) mg/dl Lactate (0.4-2.0) mmol/L Calcium 8.6 (8.5-10.1) mg/dl Magnesium 1.9 (1.7-2.4) mg/dl Total Bilirubin 1.4 H (0.2-1.0) mg/dl Direct Bilirubin 0.3 H (0-0.2) mg/dl AST 23 (13-39) U/L ALT 11 (7-52) U/L Alkaline Phosphatase 55 (34-104) U/L Troponin I High Sens 3.2 (0-14) pg/ml Total Protein 5.8 L (6.0-8.3) gm/dl Albumin 3.6 (3.4-5.0) gm/dl Procalcitonin (0-0.5) ng/ml Random Cortisol mcg/dl SARS-CoV-2 (PCR) (Negative) Influenza Type A (PCR) (Neg) Influenza Type B (PCR) (Neg) RSV (RT-PCR) (Neg) Blood Type Antibody Screen 06/13/22 06/13/22 06/13/22 Range/Units 11:39 11:39 11:51 WBC (4.8-10.8) K/ul RBC (4.20-5.40) M/uL Hgb (12.0-16.0) g/dl Hct (37.0-47.0) % MCV (80.0-100.0) fL MCH (25.0-34.0) pg MCHC (32.0-36.0) g/dL RDW Std Deviation (36.4-46.3) fL RDW Coeff of Kamila (11.5-14.5) % Plt Count (130-400) K/uL MPV (9.4-12.4) fL Immature Gran % (Auto) % Neut % (Auto) % Lymph % (Auto) % Clinton % (Auto) % Eos % (Auto) % Baso % (Auto) % Neut # (Auto) (1.40-6.50) K/uL Lymph # (Auto) (1.2-3.4) K/uL Clinton # (Auto) (0.11-0.59) K/uL Eos # (Auto) (0-0.50) K/uL Baso # (Auto) (0-0.2) K/uL Immature Gran # (Auto) (0.01-0.20) K/uL PT (9.0-12.0) Seconds INR (0.9-1.1) APTT (21.0-31.0) Seconds PTT Ratio VBG pH VBG pCO2 VBG pO2 VBG HCO3 VBG O2 Saturation VBG Base Excess Barometric Pressure Sodium (136-145) mmol/L Potassium (3.5-5.1) mmol/L Chloride (98-107) mmol/L Carbon Dioxide (21-32) mmol/L Anion Gap (3-11) BUN (6-23) mg/dl Creatinine (0.6-1.2) mg/dl Est Cr Clr Drug Dosing ml/min Est GFR ( Amer) ml/min Est GFR (Non-Af Amer) ml/min BUN/Creatinine Ratio (10-20) Glucose (70-99(Fasting)) mg/dl Lactate (0.4-2.0) mmol/L Calcium (8.5-10.1) mg/dl Magnesium (1.7-2.4) mg/dl Total Bilirubin (0.2-1.0) mg/dl Direct Bilirubin (0-0.2) mg/dl AST (13-39) U/L ALT (7-52) U/L Alkaline Phosphatase (34-104) U/L Troponin I High Sens (0-14) pg/ml Total Protein (6.0-8.3) gm/dl Albumin (3.4-5.0) gm/dl Procalcitonin < 0.05 (0-0.5) ng/ml Random Cortisol 12.19 mcg/dl SARS-CoV-2 (PCR) NEGATIVE (Negative) Influenza Type A (PCR) Negative (Neg) Influenza Type B (PCR) Negative (Neg) RSV (RT-PCR) Negative (Neg) Blood Type Antibody Screen 06/13/22 06/13/22 06/13/22 Range/Units 11:57 11:57 11:57 WBC (4.8-10.8) K/ul RBC (4.20-5.40) M/uL Hgb (12.0-16.0) g/dl Hct (37.0-47.0) % MCV (80.0-100.0) fL MCH (25.0-34.0) pg MCHC (32.0-36.0) g/dL RDW Std Deviation (36.4-46.3) fL RDW Coeff of Kamila (11.5-14.5) % Plt Count (130-400) K/uL MPV (9.4-12.4) fL Immature Gran % (Auto) % Neut % (Auto) % Lymph % (Auto) % Clinton % (Auto) % Eos % (Auto) % Baso % (Auto) % Neut # (Auto) (1.40-6.50) K/uL Lymph # (Auto) (1.2-3.4) K/uL Clinton # (Auto) (0.11-0.59) K/uL Eos # (Auto) (0-0.50) K/uL Baso # (Auto) (0-0.2) K/uL Immature Gran # (Auto) (0.01-0.20) K/uL PT (9.0-12.0) Seconds INR (0.9-1.1) APTT (21.0-31.0) Seconds PTT Ratio VBG pH Cancelled VBG pCO2 Cancelled VBG pO2 Cancelled VBG HCO3 Cancelled VBG O2 Saturation Cancelled VBG Base Excess Cancelled Barometric Pressure Cancelled Sodium (136-145) mmol/L Potassium (3.5-5.1) mmol/L Chloride (98-107) mmol/L Carbon Dioxide (21-32) mmol/L Anion Gap (3-11) BUN (6-23) mg/dl Creatinine (0.6-1.2) mg/dl Est Cr Clr Drug Dosing ml/min Est GFR ( Amer) ml/min Est GFR (Non-Af Amer) ml/min BUN/Creatinine Ratio (10-20) Glucose (70-99(Fasting)) mg/dl Lactate 2.5 H* (0.4-2.0) mmol/L Calcium (8.5-10.1) mg/dl Magnesium (1.7-2.4) mg/dl Total Bilirubin (0.2-1.0) mg/dl Direct Bilirubin (0-0.2) mg/dl AST (13-39) U/L ALT (7-52) U/L Alkaline Phosphatase (34-104) U/L Troponin I High Sens (0-14) pg/ml Total Protein (6.0-8.3) gm/dl Albumin (3.4-5.0) gm/dl Procalcitonin (0-0.5) ng/ml Random Cortisol mcg/dl SARS-CoV-2 (PCR) (Negative) Influenza Type A (PCR) (Neg) Influenza Type B (PCR) (Neg) RSV (RT-PCR) (Neg) Blood Type A Negative Antibody Screen NEGATIVE 06/13/22 Range/Units 12:21 WBC (4.8-10.8) K/ul RBC (4.20-5.40) M/uL Hgb (12.0-16.0) g/dl Hct (37.0-47.0) % MCV (80.0-100.0) fL MCH (25.0-34.0) pg MCHC (32.0-36.0) g/dL RDW Std Deviation (36.4-46.3) fL RDW Coeff of Kamila (11.5-14.5) % Plt Count (130-400) K/uL MPV (9.4-12.4) fL Immature Gran % (Auto) % Neut % (Auto) % Lymph % (Auto) % Clinton % (Auto) % Eos % (Auto) % Baso % (Auto) % Neut # (Auto) (1.40-6.50) K/uL Lymph # (Auto) (1.2-3.4) K/uL Clinton # (Auto) (0.11-0.59) K/uL Eos # (Auto) (0-0.50) K/uL Baso # (Auto) (0-0.2) K/uL Immature Gran # (Auto) (0.01-0.20) K/uL PT (9.0-12.0) Seconds INR (0.9-1.1) APTT (21.0-31.0) Seconds PTT Ratio VBG pH 7.35 L VBG pCO2 42 VBG pO2 20 VBG HCO3 23 VBG O2 Saturation < 60.0 VBG Base Excess -2.4 Barometric Pressure Sodium (136-145) mmol/L Potassium (3.5-5.1) mmol/L Chloride (98-107) mmol/L Carbon Dioxide (21-32) mmol/L Anion Gap (3-11) BUN (6-23) mg/dl Creatinine (0.6-1.2) mg/dl Est Cr Clr Drug Dosing ml/min Est GFR ( Amer) ml/min Est GFR (Non-Af Amer) ml/min BUN/Creatinine Ratio (10-20) Glucose (70-99(Fasting)) mg/dl Lactate (0.4-2.0) mmol/L Calcium (8.5-10.1) mg/dl Magnesium (1.7-2.4) mg/dl Total Bilirubin (0.2-1.0) mg/dl Direct Bilirubin (0-0.2) mg/dl AST (13-39) U/L ALT (7-52) U/L Alkaline Phosphatase (34-104) U/L Troponin I High Sens (0-14) pg/ml Total Protein (6.0-8.3) gm/dl Albumin (3.4-5.0) gm/dl Procalcitonin (0-0.5) ng/ml Random Cortisol mcg/dl SARS-CoV-2 (PCR) (Negative) Influenza Type A (PCR) (Neg) Influenza Type B (PCR) (Neg) RSV (RT-PCR) (Neg) Blood Type Antibody Screen Administered Medications Sodium Chloride (Nss 1000ml) 1,000 mls @ 999 mls/hr IV .Q1H1M ONE Stop: 06/13/22 14:40 Last Admin: 06/13/22 13:59 Dose: 999 mls/hr Documented By: ROXANA Discontinued Medications Fentanyl Citrate (Fentanyl Citrate 100 Mcg/2 Ml Vial) 50 mcg IV NOW STA Stop: 06/13/22 13:42 Last Admin: 06/13/22 13:59 Dose: 50 mcg Documented By: ROXANA Sodium Chloride (Nss 1000ml) 1,000 mls @ 999 mls/hr IV .Q1H1M ONE Stop: 06/13/22 12:41 Last Infusion: 06/13/22 12:53 Dose: 0 mls/hr Documented By: Admin: 06/13/22 11:50 Dose: 999 mls/hr Documented By: ROXANA Ondansetron HCl (Ondansetron Inj 2 Mg/Ml 2 Ml Vial) 4 mg IV NOW STA Stop: 06/13/22 13:42 Last Admin: 06/13/22 13:58 Dose: 4 mg Documented By: ROXANA Imaging Data Radiologist's Impression: Chest X-Ray 06/13/22 11:41 XR chest 1V not portable CLINICAL HISTORY: Sepsis TECHNIQUE: Single frontal radiograph of the chest was obtained. Comparison: Comparison is made to chest radiograph 04/12/2013 FINDINGS: No lines and tubes are seen. The cardiomediastinal silhouette is normal. The lungs are clear. No evidence of pleural effusion or pneumothorax. IMPRESSION: No acute abnormalities and in particular no evidence of pneumonia. ACT 112: Negative or not required by law. Electronically signed by: Delon Hunt M.D. 06/13/2022 1:20 PM Knee X-Ray 06/13/22 11:41 XR knee LT 1 or 2V routine CLINICAL HISTORY: fall. Left knee pain. COMPARISON STUDY: None. FINDINGS: There is a left total knee arthroplasty. The hardware appears intact. There is anterior soft tissue swelling within the proximal left lower leg. There is a distracted periprosthetic/avulsion fracture within the anterior proximal tibia. This demonstrates up to 1 cm of distraction. There is a small joint ef fusion. IMPRESSION: 1. There is a distracted periprosthetic/avulsion fracture within the anterior proximal tibia. This demonstrates up to 1 cm of distraction. 2. Small joint effusion. ACT 112: Negative or not required by law. Electronically signed by: Lobo Adler M.D. 06/13/2022 1:31 PM Pelvis X-Ray 06/13/22 11:41 XR pelvis 1-2V routine CLINICAL HISTORY: fall TECHNIQUE: A single frontal view of the pelvis was obtained. Comparison: None available at the time of this dictation. FINDINGS: There is no evidence of an acute fracture. Joint spaces are well-preserved. No soft tissue abnormality is seen. IMPRESSION: No evidence of acute osseous injury. ACT 112: Negative or not required by law. Electronically signed by: Delon Hunt M.D. 06/13/2022 1:21 PM Discharge Plan Visit Data Chief Complaint: Hypotension Stated Complaint: HYPOTENSION, FALL, WEAKNESS ED Provider: Tomas Chopra Discharge Problem: Acute hypotension, Near syncope, Closed left tibial fracture, ALEXANDRA (acute kidney injury) Patient Disposition: Being Evaluated by Hospitalist Forms Stand Alone Forms: [facility] Prescriptions Prescriptions: No Action tizanidine 2 mg capsule 2 mg PO BID PRN (Reason: MUSCLE SPASMS) metoprolol tartrate 25 mg tablet 25 mg PO DAILY aspirin 81 mg tablet,delayed release (DR/EC) 81 mg PO DAILY cetirizine 10 mg tablet 10 mg PO BID PRN (Reason: Other) duloxetine 60 mg capsule,delayed release(DR/EC) 60 mg PO DAILY etodolac 500 mg tablet 500 mg PO BID metformin 500 mg tablet 1,000 mg PO BID omeprazole 20 mg capsule,delayed release(DR/EC) 20 mg PO DAILY semaglutide 1 mg/dose (2 mg/1.5 mL) pen injector 2 mg subcut WK camphor-menthol 0.5-0.5 % lotion 1 applic topical TID diltiazem HCl 120 mg capsule,extended release 12 hr 120 mg PO DAILY lidocaine 5 % ointment 1 applic topical BID magnesium oxide 420 mg tablet 420 mg PO DAILY pregabalin 225 mg capsule 225 mg PO BID rosuvastatin 20 mg tablet 20 mg PO DAILY isosorbide mononitrate 30 mg tablet extended release 24 hr 30 mg PO DAILY Qty: 30 0RF levothyroxine 25 mcg tablet 25 mcg PO Q OTHER DAY Rx Instructions: ALTERNATES WITH 50 MG QOD. levothyroxine 50 mcg tablet 50 mcg PO Q OTHER DAY Rx Instructions: ALTERNATES WITH 25 MG QOD. Referrals Referrals: Jonny Lyman, HOSPITAL INSURANCE CLERK-C [Primary Care Provider] -
[2022-06-13 12:03] LABS: Basophils # (auto) 0.04 K/uL (0-0.2); Basophils % (auto) 0.7 %; Eosinophils # (auto) 0.08 K/uL (0-0.50); Eosinophils % (auto) 1.3 %; Hemoglobin 11.3 g/dl (12.0-16.0); Immature Granulocytes # (auto) 0.01 K/uL (0.01-0.20); Immature Granulocytes % (auto) 0.2 %; Lymphocytes # (auto) 2.41 K/uL (1.2-3.4); Lymphocytes % (auto) 40.5 %; Mean Corpuscular Hemoglobin 27.9 pg (25.0-34.0); Mean Corpuscular Hgb Conc 33.2 g/dL (32.0-36.0); Mean Platelet Volume 9.8 fL (9.4-12.4); Monocytes # (auto) 0.57 K/uL (0.11-0.59); Monocytes % (auto) 9.6 %; Neutrophils # (auto) 2.84 K/uL (1.40-6.50); Neutrophils % (auto) 47.7 %; Platelet Count 192 K/uL (130-400); RDW Coefficient of Variation 15.3 % (11.5-14.5); RDW Standard Deviation 47.1 fL (36.4-46.3); Red Blood Count 4.05 M/uL (4.20-5.40); White Blood Count 5.95 K/ul (4.8-10.8)
[2022-06-13 12:23] LABS: Albumin Level 3.6 gm/dl (3.4-5.0); BUN Creatinine Ratio 24.1 (10-20); Bilirubin Direct 0.3 mg/dl (0-0.2); Bilirubin,Total 1.4 mg/dl (0.2-1.0); Calcium 8.6 mg/dl (8.5-10.1); Est GFR (African American) 48.8 ml/min; Est GFR (Non-African American) 42.1 ml/min; Magnesium 1.9 mg/dl (1.7-2.4); Total Protein 5.8 gm/dl (6.0-8.3)
[2022-06-13 12:26] LABS: Troponin I High Sensitivity 3.2 pg/ml (0-14)
[2022-06-13 12:30] LABS: Partial Thromboplastin Ratio 0.9; Partial Thromboplastin Time 23.4 Seconds (21.0-31.0); Prothrombin Time 10.7 Seconds (9.0-12.0)
[2022-06-13 12:50] LABS: Influenza A virus by PCR Negative (Neg); Influenza B virus by PCR Negative (Neg); RSV by PCR Negative (Neg); SARS CoV2 RNA(COVID-19) Ceph NEGATIVE (Negative)
[2022-06-13 12:50] LABS: Base Excess VBG -2.4 mEq/L; HCO3 VBG 23 mmol/L; Oxygen Saturation VBG < 60.0 %; PCO2 VBG 42 mmHg (38-50); PO2 VBG 20 mmHg; pH VBG 7.35 (7.36-7.41)
--- NOTE | 2022-06-13 13:22 | XRay Report ---
XR chest 1V not portable CLINICAL HISTORY: Sepsis TECHNIQUE: Single frontal radiograph of the chest was obtained. Comparison: Comparison is made to chest radiograph 04/12/2013 FINDINGS: No lines and tubes are seen. The cardiomediastinal silhouette is normal. The lungs are clear. No evid ence of pleural effusion or pneumothorax. IMPRESSION: No acute abnormalities and in particular no evidence of pneumonia. ACT 112: Negative or not required by law. Electronically signed by: Delon Hunt M.D. 06/13/2022 1:20 PM
--- NOTE | 2022-06-13 13:23 | XRay Report ---
XR pelvis 1-2V routine CLINICAL HISTORY: fall TECHNIQUE: A single frontal view of the pelvis was obtained. Comparison: None available at the time of this dictation. FINDINGS: There is no evidence of an acute fracture. Joint spaces are well-preserved. No soft tissue abnormali ty is seen. IMPRESSION: No evidence of acute osseous injury. ACT 112: Negative or not required by law. Electronically signed by: Delon Hunt M.D. 06/13/2022 1:21 PM
--- NOTE | 2022-06-13 13:33 | XRay Report ---
XR knee LT 1 or 2V routine CLINICAL HISTORY: fall. Left knee pain. COMPARISON STUDY: None. FINDINGS: There is a left total knee arthroplasty. The hardware appears intact. There is anterior sof t tissue swelling within the proximal left lower leg. There is a distracted periprosthetic/avulsion f racture within the anterior proximal tibia. This demonstrates up to 1 cm of distraction. There is a s mall joint effusion. IMPRESSION: 1. There is a distracted periprosthetic/avulsion fracture within the anterior proximal tibia. This de monstrates up to 1 cm of distraction. 2. Small joint effusion. ACT 112: Negative or not required by law. Electronically signed by: Lobo Adler M.D. 06/13/2022 1:31 PM
[2022-06-13] MEDS ORDERED: ONDANSETRON INJ 2 MG/ML 2 ML VIAL IV STA (13:41)
[2022-06-13] MEDS ORDERED: fentaNYL citrate 100 MCG/2 ML VIAL IV STA (13:41)
--- NOTE | 2022-06-13 13:59 | History & Physical Report ---
Date of Service June 13, 2022 Assessment & Plan (1) Near syncope: Plan: Weakness/Dizziness/Presyncope Has been seen before for suspected symptomatic hypotension/orthostatic hypotension Losartan previously discontinued, diltiazem and metoprolol were continued last month Given continued orthostasis/low blood pressure will discontinue diltiazem at this time Metoprolol temporarily held for hypotension - s/p 2L NSS in ER, +1L by EMS - Additional as noted below (2) Hypotension: Plan: Hypotension,? Medication induced versus ?Adrenal insufficiency Remains 8090 systolic despite 3 L crystalloid. Did take diltiazem/metoprolol/Zanaflex this morning. No chest pain/chest pressure. Did have some hyperventilation with a panic attack, this lasted 1 to 2 minutes and otherwise patient has no wheezing or shortness of breath on reassessment. Has remained with SPO2 greater than 95% throughout duration in ER No history of chronic steroid use/suppression Random cortisol 12.19, nonspecific/nondiagnostic. AI is not excluded. No hyperkalemia. Mild NAGMA. -Given continued hypotension despite 3L crystalloid resuscitation with normal p.o. intake prior to this and no signs of sepsis will treat empirically with hydrocortisone 100 mg x1 & 50mg every 6hrs. Defer cosyntropin stim to outpatient if needed. DDx of hypotension includes medication effect, however patient has not taken any medications since 7 AM. (3) Closed left tibial fracture: Plan: L Periprosthetic Fracture - XR left knee:There is a left total knee arthroplasty. The hardware appears intact. There is anterior soft tissue swelling within the proximal left lower leg. There is a distracted periprosthetic/avulsion fracture within the anterior proximal tibia. This demonstrates up to 1 cm of distraction. There is a small joint effusion. - [place] knee was performed at [facility] Orthopedics consulted Nonweightbearing at this time (4) Hypertension: Plan: Antihypertensives held for hypotension (5) CAD (coronary artery disease): Plan: CAD Prior high-sensitivity troponins negative, patient without anginal symptoms Continue aspirin, statin, metoprolol, Imdur Echo 05/14/2022: EF 60 to 65%, no regional wall motion abnormality, moderate concentric LVH, no significant valvular abnormalities. Type I diastolic dysfunction (6) Hypothyroid: Plan: Hypothyroidism With increasing TSH last noted 05/14/2022. Repeat TSH pending Patient previously on alternating between Synthroid 25 mcg at 50 mcg daily (7) Diabetes mellitus: Plan: DM Metformin/semaglutide held BSG AC/at bedtime, goal [id number] Basal 9 units twice daily, CF 45, carb ratio 15 (8) Dyslipidemia: Plan: Hyperlipidemia Continue statin (9) Lumbar radiculopathy: Plan: Peripheral neuropathy Continue pregabalin to 25 mg p.o. twice daily, duloxetine 60 mg daily Diazepam previously discontinued ? Contribution to orthostasis. (10) Thoracic facet syndrome: Plan: Thoracic facet syndrome S/p bilateral T4/T5 radiofrequency ablation 05/22/2022 with pain management - Pt has not had benefit, continues to have chest pain at her braline in the back and muscle cramps Back pain at her bra line is reproducible on palpation with increased muscle tenderness. No radiation into the chest at time of exam (11) Spinal stenosis, lumbar region with neurogenic claudication: Plan: Lumbar radiculopathy, chronic On Tylenol with breakthrough hydrocodone/acetaminophen every 8 hours Zanaflex held for hypotension (12) GERD (gastroesophageal reflux disease): Plan: GERD Continue PPI, pantoprazole while inpatient Plan DVT prophylaxis: Heparin SQ Diet: N.p.o. pending orthopedic eval, IV FM with Normosol CODE STATUS: Full Disposition: PCU History of Present Illness Primary Care Provider: JORDAN MannC La Nichols is a 61-year-old female with a past medical history of recurrent syncope, hypertension, hypothyroidism, dyslipidemia, DM, CAD who presented to the emergency department by ambulance after an episode of dizziness when standing which caused her to fall to the ground injuring her left knee. La is seen at the bedside. She reports that after being discharged from hospital last month she recovered to her normal baseline. She has not had any fever, chills, dysuria, cough, shortness of breath, difficulty breathing, chest pain, nausea/vomiting, or URI symptoms in the last few days/weeks. She reports that she did go to stand today and felt weak and dizzy which caused her to drop to her left knee with immediate pain in the left knee. She did not lose consciousness completely, but reports she felt a very lightheaded and globally weak. She did not feel like she was going to pass out. She reports she has been eating and drinking normally, and is peeing normally with light yellow urine. Has not had decreased intake, and has not had any abdominal pain or diarrhea. Her losartan was discontinued last month. She is continue to take diltiazem, metoprolol for blood pressure and she also takes tizanidine for muscle spasms in her back. She did take these this morning around 7 AM. She has a history of hypothyroidism with her thyroid medication increased 1 month ago, no history of steroid use or known adrenal insufficiency. EMS was called due to her lightheadedness and severe pain in her knee, she was found to be hypotensive. She received 1 L of saline by EMS, and an additional 2 L in the emergency department but remains borderline hypotensive with pressures in the 90s. She does not have a history of heart failure, EF on last echo was preserved, and she has not had any chest pain/chest pressure with a sinus rhythm and negative troponin on initial ER evaluation Medical History: Reviewed Medications: Reviewed Surgical History: Reviewed Allergies: Reviewed Social History: Denies tobacco and alcohol use Code Status: Full ER Reivew: XR pelvis: No evidence of acute fracture XR left knee:There is a left total knee arthroplasty. The hardware appears intact. There is anterior soft tissue swelling within the proximal left lower leg. There is a distracted periprosthetic/avulsion fracture within the anterior proximal tibia. This demonstrates up to 1 cm of distraction. There is a small joint effusion. CXR: No acute findings, no evidence of pneumonia EKG: NSR, first-degree AV block, similar morphology to 05/14/2022. No territorial ST/T wave changes No leukocytosis, hemoglobin 11.3, last hemoglobin 05/14/2022 11.4 Coags normal VB.3 No sodium/potassium abnormalities Creatinine baseline is less than 1, creatinine acutely elevated on admission to 1.37, BUN/CR ratio 24.1 Admitting lactate 2.5, received 1 L NSS with repeat lactate wnl Procalcitonin negative Allergies Allergy/AdvReac Type Severity Reaction Status Date / Time nickel Allergy Intermediate Hives Verified 05/22/22 13:08 Home Medications Medication Instructions Recorded Confirmed Type aspirin 81 mg tablet,delayed 81 mg PO DAILY 08/10/20 06/13/22 History release cetirizine 10 mg tablet 10 mg PO BID PRN Other 08/10/20 06/13/22 History duloxetine 60 mg capsule,delayed 60 mg PO DAILY neuropathy 08/10/20 06/13/22 History release etodolac 500 mg tablet 500 mg PO BID 08/10/20 06/13/22 History metformin 500 mg tablet 1,000 mg PO BID 08/10/20 06/13/22 History omeprazole 20 mg capsule,delayed 20 mg PO DAILY 08/10/20 06/13/22 History release isosorbide mononitrate 30 mg 30 mg PO DAILY #30 tabs 08/27/20 06/13/22 Rx tablet,extended release 24 hr tizanidine 2 mg capsule 2 mg PO BID PRN MUSCLE SPASMS 02/20/21 06/13/22 History semaglutide 1 mg/dose (2 mg/1.5 2 mg subcut WK 09/06/21 06/13/22 History mL) subcutaneous pen injector camphor-menthol 0.5 %-0.5 % lotion 1 applic topical TID 02/25/22 06/13/22 History diltiazem HCl 120 mg 120 mg PO DAILY 02/25/22 06/13/22 History capsule,extended release 12 hr lidocaine 5 % topical ointment 1 applic topical BID 02/25/22 06/13/22 History magnesium oxide 420 mg tablet 420 mg PO DAILY 02/25/22 06/13/22 History pregabalin 225 mg capsule 225 mg PO BID 02/25/22 06/13/22 History rosuvastatin 20 mg tablet 20 mg PO DAILY 02/25/22 06/13/22 History metoprolol tartrate 25 mg tablet 25 mg PO DAILY 03/05/22 06/13/22 History levothyroxine 25 mcg tablet 25 mcg PO Q OTHER DAY 05/14/22 06/13/22 History levothyroxine 50 mcg tablet 50 mcg PO Q OTHER DAY 05/14/22 06/13/22 History Past Med/Surg History Medical History Alopecia CAD (coronary artery disease) Chest pain Dyslipidemia Hypertension Hypothyroid Sinus tachycardia Spinal stenosis, lumbar region with neurogenic claudication Thyroid dysfunction Surgical History H/O: hysterectomy partial History of cholecystectomy History of knee replacement Bilateral Hx of knee surgery Family History Mother Coronary heart disease Brother Coronary heart disease Social History Smoking Status: Former smoker Cigarettes Per Day: 3 pack years, quit 30 years ago; Smoking End Date: 1990; Second Hand Exposure: No; Do You Dip or Chew Tobacco: No; Tobacco Cessation Education Requested by Patient: No Hx Alcohol Use: No Hx Substance Use: No Preferred Language: Serbian Communication Ability: Effective Stock Letterer Required: No Beliefs That Will Affect Care: None marital status: Current Living Situation: Alone Current Living Situation Comment: home with two dogs current occupational status: unemployed Other Information That Helps Us Care for You: No Feels Safe at Home: Yes Assistive Devices: CPAP Review of Systems 2 Review of Systems: All systems reviewed & are unremarkable except as noted in HPI & below Physical Exam Physical Exam: General: A&Ox3. NAD. Cooperative. Patient extremely anxious on discussion of her left knee fracture, experienced hyperventilation and what she described as a panic attack which passed after approximately 1 minute with controlled breathing. Following this patient reports she felt back to normal. HEENT: Atraumatic, normocephalic. Vision/hearing intact. Pupils equal and reactive to light Pulm: CTAB A&P. -wheezes, -rales, -rhonchi. Symmetrical chest rise. No increased work of breathing. No respiratory distress. Cardiac: Regular, intermittently tachycardic. No murmurs rubs or gallops.. Radial pulses intact and symmetrical. Abdominal: Nontender, nondistended, soft. BS present. Right lower extremity: Warm, dry. No edema. Sensation soft touch intact. Ankl e dorsiflexion/plantarflexion intact. Hip flexion intact in bed. Left lower extremity: Significant swelling surrounding the left knee. Tender to palpation. Musculature is not tense. PT pulses intact. Sensation soft touch in the feet intact. Ankle dorsiflexion/plantarflexion, toe wiggle intact. Cap refill brisk. Results & Data Results & [facility] ([facility] Vital Signs (Past 12 Hours) Vital Signs Temp Pulse Pulse Resp BP BP Pulse Ox 06/13/22 13:31 67 16 93/54 L 94 06/13/22 13:07 72 16 84/56 L 96 06/13/22 12:30 75 06/13/22 12:12 85/52 L 06/13/22 12:07 75 18 80/45 L 95 06/13/22 11:55 82/33 L 06/13/22 11:53 98 06/13/22 11:48 79 18 78/54 L 98 06/13/22 11:41 82 20 98 06/13/22 11:42 36.4 C L 86 20 79/49 L 99 O2 Del Method 06/13/22 13:31 Room Air 06/13/22 13:07 Room Air 06/13/22 12:30 06/13/22 12:12 06/13/22 12:07 Room Air 06/13/22 11:55 06/13/22 11:53 Room Air 06/13/22 11:48 Room Air 06/13/22 11:41 06/13/22 11:42 Room Air PG Care Time/CCT Total # of Minutes Spent Total Time Spent with Patient: Total time spent is greater than 50% in coordination of care (as documented) at patient's floor/unit and/or counseling patient: Coding Level of Care Code 05537 INT INP/OBS CARE 2/55MIN Diagnoses Near syncope R55 Hypotension I95.9 Closed left tibial fracture S82.102A Encounter type: initial encounter Fracture morphology: unspecified fracture morphology Tibia location: proximal Hypertension I10 CAD (coronary artery disease) I25.10 Hypothyroid E03.9 Diabetes mellitus E11.9 Dyslipidemia E78.5 Lumbar radiculopathy M54.16 Thoracic facet syndrome M47.894 Spinal stenosis, lumbar region with neurogenic claudication M48.062 GERD (gastroesophageal reflux disease) K21.9 (3) Closed left tibial fracture Encounter type: initial encounter Fracture morphology: unspecified fracture morphology Tibia location: proximal Qualified Code(s): S82.102A - Unspecified fracture of upper end of left tibia, initial encounter for closed fracture
[2022-06-13] MEDS ORDERED: HYDROCORTISONE SOD SUCCINATE 100 MG/2 ML VIAL IV STA (14:47)
[2022-06-13 16:33] LABS: Appearance Urine Clear (Clear); Bilirubin Urine Negative (Negative); Blood Urine Negative (Negative); Color Urine Yellow; Glucose Urine UA Negative (Negative); Ketones Urine Negative (Negative); Leukocyte Esterase Urine Negative (Negative); Nitrite Urine Negative (Negative); Protein Urine Negative (Negative); Specific Gravity Urine 1.009 (1.000-1.030); Urobilinogen Urine Negative (Negative)
[2022-06-13 17:01] LABS: Amphetamines+Metham, Urine Neg (Neg); Barbiturates, Urine Neg (Neg); Benzodiazepine, Urine Neg (Neg); Cocaine, Urine Neg (Neg); MDMA (Ecstacy), Urine Neg (Neg); Methadone, Urine Neg (Neg); Opiate, Urine Pos (Neg); Phencyclidine, Urine Neg (Neg)
[2022-06-13] MEDS ORDERED: GLUCOSE 10 TAB/TUBE PO PRN (17:49)
[2022-06-13] MEDS ORDERED: HYDROmorphone INJ 0.5 MG/0.5 ML SYR IV PRN (17:49)
[2022-06-13] MEDS ORDERED: GLUCOSE 40% GEL 15 GM TUBE PO PRN (17:49)
[2022-06-13] MEDS ORDERED: DEXTROSE 50% 50 ML SYRINGE IV PRN (17:49)
[2022-06-13] MEDS ORDERED: CARBOHYDRATES FOR HYPOGLYCEMIA PO PRN (17:49)
[2022-06-13] MEDS ORDERED: GLUCAGON FOR INJ 1 MG VIAL SQ PRN (17:49)
[2022-06-13] MEDS ORDERED: ACETAMINOPHEN 325 MG TAB PO PRN (17:51)
[2022-06-13] MEDS ORDERED: MoRPHine SULFATE 2 MG/ML CARP IV PRN ×2 (17:52→17:53)
[2022-06-13] MEDS: ACETAMINOPHEN 325 MG TAB PO PRN ×2 (18:31→22:32)
[2022-06-13] MEDS: NORMOSOL-R 1,000 ML IV SCH (18:40)
[2022-06-13] MEDS: HYDROCORTISONE SOD 50 MG in SYRINGE 0 ML IV SCH (19:52)
[2022-06-13] MEDS ORDERED: HYDROCORTISONE SOD SUCCINATE 100 MG/2 ML VIAL IV SCH (20:00)
[2022-06-13] MEDS: INSULIN ASPART PER UNIT SC SCH ×2 (20:06→21:32)
[2022-06-13] MEDS: LANTUS PER UNIT CHARGE SQ SCH (21:32)
--- NOTE | 2022-06-13 23:15 | Electrocardiogram Report ---
Test Reason : Blood Pressure : / mmHG Vent. Rate : 075 BPM Atrial Rate : 075 BPM P-R Int : 216 ms QRS Dur : 082 ms QT Int : 414 ms P-R-T Axes : 041 000 013 degrees QTc Int : 462 ms Sinus rhythm with 1st degree A-V block Possible Inferior infarct , age undetermined Abnormal ECG When compared with ECG of 14-MAY-2022 02:47, No significant change Confirmed by Garrick Gonsalez ([id number]) on 06/13/2022 11:15:22 PM Referred By: Confirmed By:Artem Gonsalez
[2022-06-14] MEDS: HYDROmorphone INJ 0.5 MG/0.5 ML SYR IV PRN ×6 (00:06→21:31)
[2022-06-14] MEDS ORDERED: COUGH DROP (SUGAR FREE) LOZ 24 LOZ/1 BOX BUCCAL PRN (02:37)
[2022-06-14] MEDS: NORMOSOL-R 1,000 ML IV SCH ×3 (03:08→20:06)
[2022-06-14] MEDS: HYDROCORTISONE SOD 50 MG in SYRINGE 0 ML IV SCH ×3 (03:08→14:02)
[2022-06-14] MEDS: LEVOTHYROXINE SODIUM 25 MCG TABLET PO SCH (05:55)
[2022-06-14 06:26] LABS: Basophils # (auto) 0.01 K/uL (0-0.2); Basophils % (auto) 0.2 %; Hemoglobin 10.5 g/dl (12.0-16.0); Immature Granulocytes # (auto) 0.01 K/uL (0.01-0.20); Immature Granulocytes % (auto) 0.2 %; Lymphocytes # (auto) 0.87 K/uL (1.2-3.4); Lymphocytes % (auto) 14.2 %; Mean Corpuscular Hemoglobin 27.7 pg (25.0-34.0); Mean Corpuscular Hgb Conc 32.8 g/dL (32.0-36.0); Mean Corpuscular Volume 84.4 fL (80.0-100.0); Mean Platelet Volume 9.6 fL (9.4-12.4); Monocytes # (auto) 0.17 K/uL (0.11-0.59); Monocytes % (auto) 2.8 %; Neutrophils # (auto) 5.07 K/uL (1.40-6.50); Neutrophils % (auto) 82.6 %; Platelet Count 194 K/uL (130-400); RDW Coefficient of Variation 15.4 % (11.5-14.5); RDW Standard Deviation 47.1 fL (36.4-46.3); Red Blood Count 3.79 M/uL (4.20-5.40); White Blood Count 6.13 K/ul (4.8-10.8)
[2022-06-14 06:48] LABS: BUN Creatinine Ratio 24.3 (10-20); Calcium 8.7 mg/dl (8.5-10.1); Creatinine Clr Calc Pharmacy 89.4 ml/min; Est GFR (African American) 109.9 ml/min; Est GFR (Non-African American) 94.8 ml/min
[2022-06-14] MEDS: INSULIN ASPART PER UNIT SC SCH ×4 (08:01→21:12)
[2022-06-14 08:20] LABS: Estimated Average Glucose 146 mg/dl; Hemoglobin A1C 6.7 % (4.5-5.6)
[2022-06-14] MEDS: PANTOprazole 40 MG TAB PO SCH (10:29)
[2022-06-14] MEDS: ROSUVASTATIN CALCIUM 20 MG TAB PO SCH (10:29)
[2022-06-14] MEDS: DULoxetine HCL 60 MG CAP PO SCH (10:29)
[2022-06-14] MEDS: PREGABALIN 75 MG CAP PO SCH ×2 (10:31→20:11)
[2022-06-14 10:46] LABS: A calco-baum cmplx NotReported Not Detected (NotDetected); Bact fragilis Not Reported Not Detected (NotDetected); C auris Not Reported Not Detected (NotDetected); Calbicans Not Reported Not Detected (NotDetected); Candida glabrata Not Reported Not Detected (NotDetected); Candida krusei Not Reported Not Detected (NotDetected); Cneoformans/gatti Not Reported Not Detected (NotDetected); Cparapsilosis Not Reported Not Detected (NotDetected); Ctropicalis Not Reported Not Detected (NotDetected); E cloacae compx Not Reported Not Detected (NotDetected); Efaecalis Not Reported Not Detected (NotDetected); Efaecium Not Reported Not Detected (NotDetected); Enterobacterales Not Reported Not Detected (NotDetected); Escherichia coli Not Reported Not Detected (NotDetected); H influenzae Not Reported Not Detected (NotDetected); K aerogenes Not Reported Not Detected (NotDetected); Koxytoca Not Reported Not Detected (NotDetected); Kpneumoniae grp Not Reported Not Detected (NotDetected); Lmonocyt Not Reported Not Detected (NotDetected); N meningitidis Not Reported Not Detected (NotDetected); P aeruginosa Not Reported Not Detected (NotDetected); Proteus spp Not Reported Not Detected (NotDetected); Salmonella spp Not Reported Not Detected (NotDetected); Smarcescens Not Reported Not Detected (NotDetected); Staph lugdunensis Not Reported Not Detected (NotDetected); Staph spp. Not Reported DETECTED (NotDetected); Staphaureus Not Reported Not Detected (NotDetected); Staphepi Not Reported DETECTED (NotDetected); Staphylococcus spp. DETECTED (NotDetected); Stenmaltophilia Not Reported Not Detected (NotDetected); Strep agal(GrpB) Not Reported Not Detected (NotDetected); Strep pneum Not Reported Not Detected (NotDetected); Strep pyog (GrpA) Not Reported Not Detected (NotDetected); Strep spp Not Reported Not Detected (NotDetected)
--- NOTE | 2022-06-14 10:50 | Orthopedic Consultation ---
Date of Consultation June 14, 2022 Assessment & Plan (1) Closed left tibial fracture: -Partial weightbearing left lower extremity in the immobilizer at all times with walker -Pain control -DVT prophylaxis -Medical management -PT/OT -Given the patient's injury it appears that she has a partial fracture of the proximal tibia which does extend into the tibial tuberosity. Tibial tuberosity does not appear to be completely avulsed. She does have active extension with some extensor lag of about 10 to 15 degrees. Considering these findings and her numerous revisions I would recommend that she remain in an immobilizer and she can be partial weightbearing using the assistance of a walker. She will need to follow-up at the [place] and [facility] where her upper revisions have been performed. History of Present Illness Reason for Consultation: Left periprosthetic proximal tibia fracture Attending Physician: Devyn Villagomez MD History of Present Illness 61-year-old female presenting to [facility] after sustaining a hypotensive episode resulting in a fall onto her left lower extremity. Immediately afterward she noted pain in her left knee and difficulty with ambulating. She presented to the emergency department and radiographs were obtained which demonstrated a displaced partial avulsion fracture of the tibial tubercle. She was admitted to medical service for management of her hypotension and orthopedics was consulted. Allergies Allergy/AdvReac Type Severity Reaction Status Date / Time nickel Allergy Intermediate Hives Verified 05/22/22 13:08 Home Medications Medication Instructions Recorded Confirmed Type aspirin 81 mg tablet,delayed 81 mg PO DAILY 08/10/20 06/13/22 History release cetirizine 10 mg tablet 10 mg PO BID PRN Other 08/10/20 06/13/22 History duloxetine 60 mg capsule,delayed 60 mg PO DAILY neuropathy 08/10/20 06/13/22 History release etodolac 500 mg tablet 500 mg PO BID 08/10/20 06/13/22 History metformin 500 mg tablet 1,000 mg PO BID 08/10/20 06/13/22 History omeprazole 20 mg capsule,delayed 20 mg PO DAILY 08/10/20 06/13/22 History release isosorbide mononitrate 30 mg 30 mg PO DAILY #30 tabs 08/27/20 06/13/22 Rx tablet,extended release 24 hr tizanidine 2 mg capsule 2 mg PO BID PRN MUSCLE SPASMS 02/20/21 06/13/22 History semaglutide 1 mg/dose (2 mg/1.5 2 mg subcut WK 09/06/21 06/13/22 History mL) subcutaneous pen injector camphor-menthol 0.5 %-0.5 % lotion 1 applic topical TID 02/25/22 06/13/22 History diltiazem HCl 120 mg 120 mg PO DAILY 02/25/22 06/13/22 History capsule,extended release 12 hr lidocaine 5 % topical ointment 1 applic topical BID 02/25/22 06/13/22 History magnesium oxide 420 mg tablet 420 mg PO DAILY 02/25/22 06/13/22 History pregabalin 225 mg capsule 225 mg PO BID 02/25/22 06/13/22 History rosuvastatin 20 mg tablet 20 mg PO DAILY 02/25/22 06/13/22 History metoprolol tartrate 25 mg tablet 25 mg PO DAILY 03/05/22 06/13/22 History levothyroxine 25 mcg tablet 25 mcg PO Q OTHER DAY 05/14/22 06/13/22 History levothyroxine 50 mcg tablet 50 mcg PO Q OTHER DAY 05/14/22 06/13/22 History Patient History Medical History Alopecia CAD (coronary artery disease) Chest pain Dyslipidemia Hypertension Hypothyroid Sinus tachycardia Spinal stenosis, lumbar region with neurogenic claudication Thyroid dysfunction Surgical History H/O: hysterectomy partial History of cholecystectomy History of knee replacement Bilateral Hx of knee surgery Family History Mother Coronary heart disease Brother Coronary heart disease Social History Smoking Status: Former smoker Cigarettes Per Day: 3 pack years, quit 30 years ago; Smoking End Date: 1990; Second Hand Exposure: No; Do You Dip or Chew Tobacco: No; Tobacco Cessation Education Requested by Patient: No Hx Alcohol Use: No Hx Substance Use: No Preferred Language: Welsh Communication Ability: Effective [employer] Security Consultant Required: No Beliefs That Will Affect Care: None marital status: Current Living Situation: Alone Current Living Situation Comment: home with two dogs current occupational status: unemployed Other Information That Helps Us Care for You: No Feels Safe at Home: Yes Assistive Devices: CPAP Physical Exam Constitutional: No acute distress, alert and oriented to person place and time Musculoskeletal: LLE - well healed midline scar - mild edema + TTP anterior tibia - silt s/spn/dpn/t/s - fires ta/ehl/gsc - extensor lag of 10-15 degs, no evidence of patella bob, appears to track well with gentle PROM + dp/pt Results & Data ([facility]) Vital Signs (Past 12 Hours) Vital Signs Temp Pulse Pulse Resp BP Pulse Ox O2 Del Method 06/14/22 09:03 36.7 C 80 18 127/85 93 Room Air 06/14/22 08:00 87 06/14/22 04:00 36.8 C 89 117/73 93 Room Air 06/13/22 23:20 36.5 C 105 H 18 119/74 93 Room Air Diagnostic Findings Radiographs of the left knee demonstrate a well fixed revision left total knee arthroplasty with long stems present. There does not appear to be any gross subsidence of the implant. There is a partial fracture involving the proximal tibia adjacent to the tibial baseplate it appears to partially involve the tibial tuberosity. (1) Closed left tibial fracture Encounter type: initial encounter Fracture morphology: unspecified fracture morphology Tibia location: proximal Qualified Code(s): S82.102A - Unspecified fracture of upper end of left tibia, initial encounter for closed fracture
[2022-06-14] MEDS: LANTUS PER UNIT CHARGE SQ SCH ×2 (10:53→21:12)
[2022-06-14 11:05] LABS: Staphylococcus epidermidis DETECTED (NotDetected)
[2022-06-14 11:06] LABS: mecAC Resistant Gene DETECTED (NotDetected)
[2022-06-14] MEDS: HEPARIN SOD 5,000 UNIT/0.5 ML VIAL SQ SCH ×2 (12:32→20:06)
[2022-06-14] MEDS ORDERED: tiZANidine HCL 4 MG TABLET PO SCH (14:00)
[2022-06-14] MEDS: tiZANidine HCL 4 MG TABLET PO PRN ×2 (14:01→22:24)
--- NOTE | 2022-06-14 18:51 | Hospitalist Progress Note ---
Date of Service June 14, 2022 Assessment & Plan (1) Near syncope: Plan: Weakness/Dizziness/Presyncope Has been seen before for suspected symptomatic hypotension/orthostatic hypotension Losartan previously discontinued, diltiazem and metoprolol were continued last month Given continued orthostasis/low blood pressure will discontinue diltiazem at this time Metoprolol temporarily held for hypotension - s/p 2L NSS in ER, +1L by EMS - 06/14-continue with IV fluids Patient had orthostatic type changes and was started on IV steroids for suspected adrenal insufficiency Blood pressure has since improved (2) Hypotension: Plan: Hypotension,? Medication induced versus ?Adrenal insufficiency Remains 8090 systolic despite 3 L crystalloid. Did take diltiazem/metoprolol/Zanaflex this morning. No chest pain/chest pressure. Did have some hyperventilation with a panic attack, this lasted 1 to 2 minutes and otherwise patient has no wheezing or shortness of breath on reassessment. Has remained with SPO2 greater than 95% throughout duration in ER No history of chronic steroid use/suppression Random cortisol 12.19, nonspecific/nondiagnostic. AI is not excluded. No hyperkalemia. Mild NAGMA. -Given continued hypotension despite 3L crystalloid resuscitation with normal p.o. intake prior to this and no signs of sepsis will treat empirically with hydrocortisone 100 mg x1 & 50mg every 6hrs. Defer cosyntropin stim to outpatient if needed. DDx of hypotension includes medication effect, however patient has not taken any medications since 7 AM. 06/14-blood pressure trends have improved since admission We will hold IV hydrocortisone and continue patient on IV fluids and monitor blood pressure trend closely (3) Closed left tibial fracture: Plan: L Periprosthetic Fracture - XR left knee:There is a left total knee arthroplasty. The hardware appears intact. There is anterior soft tissue swelling within the proximal left lower leg. There is a distracted periprosthetic/avulsion fracture within the anterior proximal tibia. This demonstrates up to 1 cm of distraction. There is a small joint effusion. - [place] knee was performed at [facility] Orthopedics consulted Nonweightbearing at this time 06/14-patient seen by orthopedics and deemed not a surgical candidate at this time Orthopedics advised patient to follow-up with her primary surgeon in [place] [facility] Immobilizer placed and patient advised partial weightbearing by orthopedics on (4) Hypertension: Plan: Antihypertensives held for hypotension (5) CAD (coronary artery disease): Plan: CAD Prior high-sensitivity troponins negative, patient without anginal symptoms Continue aspirin, statin, metoprolol, Imdur Echo 05/14/2022: EF 60 to 65%, no regional wall motion abnormality, moderate concentric LVH, no significant valvular abnormalities. Type I diastolic dysfunction (6) Hypothyroid: Plan: Hypothyroidism With increasing TSH last noted 05/14/2022. Repeat TSH pending Patient previously on alternating between Synthroid 25 mcg at 50 mcg daily (7) Diabetes mellitus: Plan: DM Metformin/semaglutide held BSG AC/at bedtime, goal [id number] Basal 9 units twice daily, CF 45, carb ratio 15 (8) Dyslipidemia: Plan: Hyperlipidemia Continue statin (9) Lumbar radiculopathy: Plan: Peripheral neuropathy Continue pregabalin to 25 mg p.o. twice daily, duloxetine 60 mg daily Diazepam previously discontinued ? Contribution to orthostasis. (10) Thoracic facet syndrome: Plan: Thoracic facet syndrome S/p bilateral T4/T5 radiofrequency ablation 05/22/2022 with pain management - Pt has not had benefit, continues to have chest pain at her braline in the back and muscle cramps Back pain at her bra line is reproducible on palpation with increased muscle tenderness. No radiation into the chest at time of exam (11) Spinal stenosis, lumbar region with neurogenic claudication: Plan: Lumbar radiculopathy, chronic On Tylenol with breakthrough hydrocodone/acetaminophen every 8 hours Zanaflex held for hypotension (12) GERD (gastroesophageal reflux disease): Plan: GERD Continue PPI, pantoprazole while inpatient Plan DVT prophylaxis: Heparin SQ Diet: N.p.o. pending orthopedic eval, IV FM with Normosol CODE STATUS: Full Disposition: PCU Admission and Anticipated Discharge Date Admission Date: June 13, 2022 Subjective Patient reports slight improvement in her leg pain after her immobilizer has been placed No acute chest pain or shortness of breath noted Patient feels occasional dizziness when she tries to assume upright posture Presently on IV fluids Physical Exam Physical Exam: Head and ENT no thyroid enlargement trachea midline Cardiovascular S1-S2 are normal no S3 Lungs bilateral air entry fair no wheezing Abdomen soft nondistended positive bowel sounds no rebound tenderness Extremity shows trace edema immobilizer placed in the left lower extremity for closed left tibial fracture Neurologically no focal deficits Skin shows no rash Results & Data Results & Data ([facility]) Vital Signs (Past 12 Hours) Vital Signs Temp Pulse Pulse Resp BP Pulse Ox O2 Del Method 06/14/22 16:00 83 06/14/22 16:11 37.0 C 75 16 115/83 90 Room Air 06/14/22 12:00 36.6 C 86 18 124/83 93 Room Air 06/14/22 09:03 36.7 C 80 18 127/85 93 Room Air 06/14/22 08:00 87 PG Care Time/CCT Total # of Minutes Spent Total Time Spent with Patient: Total time spent is greater than 50% in coordination of care (as documented) at patient's floor/unit and/or counseling patient: Coding Level of Care Code 44318 SUB INP/OBS CARE 2/35MIN Diagnoses Near syncope R55 Hypotension I95.9 Closed left tibial fracture S82.102A Encounter type: initial encounter Fracture morphology: unspecified fracture morphology Tibia location: proximal Hypertension I10 CAD (coronary artery disease) I25.10 Hypothyroid E03.9 Diabetes mellitus E11.9 Dyslipidemia E78.5 Lumbar radiculopathy M54.16 Thoracic facet syndrome M47.894 Spinal stenosis, lumbar region with neurogenic claudication M48.062 GERD (gastroesophageal reflux disease) K21.9 (3) Closed left tibial fracture Encounter type: initial encounter Fracture morphology: unspecified fracture morphology Tibia location: proximal Qualified Code(s): S82.102A - Unspecified fracture of upper end of left tibia, initial encounter for closed fracture
[2022-06-14] MEDS: MELATONIN 3 MG TAB PO PRN (21:31)
[2022-06-15] MEDS: HYDROmorphone INJ 0.5 MG/0.5 ML SYR IV PRN ×5 (02:25→21:57)
[2022-06-15] MEDS: HEPARIN SOD 5,000 UNIT/0.5 ML VIAL SQ SCH ×3 (03:21→20:20)
[2022-06-15] MEDS: LEVOTHYROXINE SODIUM 50 MCG TABLET PO SCH (05:38)
[2022-06-15] MEDS: PANTOprazole 40 MG TAB PO SCH (08:40)
[2022-06-15] MEDS: ROSUVASTATIN CALCIUM 20 MG TAB PO SCH (08:40)
[2022-06-15] MEDS: ASPIRIN 81 MG ECTAB PO SCH (08:40)
[2022-06-15] MEDS: LANTUS PER UNIT CHARGE SQ SCH ×2 (08:40→21:01)
[2022-06-15] MEDS: PREGABALIN 75 MG CAP PO SCH ×2 (08:40→20:22)
[2022-06-15] MEDS: DULoxetine HCL 60 MG CAP PO SCH (08:41)
[2022-06-15] MEDS: INSULIN ASPART PER UNIT SC SCH ×4 (08:45→20:20)
[2022-06-15] MEDS: NORMOSOL-R 1,000 ML IV SCH (08:59)
--- NOTE | 2022-06-15 16:54 | Hospitalist Progress Note ---
Date of Service June 15, 2022 Assessment & Plan (1) Near syncope: Plan: Weakness/Dizziness/Presyncope Has been seen before for suspected symptomatic hypotension/orthostatic hypotension Losartan previously discontinued, diltiazem and metoprolol were continued last month Given continued orthostasis/low blood pressure will discontinue diltiazem at this time Metoprolol temporarily held for hypotension - s/p 2L NSS in ER, +1L by EMS - 06/14-continue with IV fluids Patient had orthostatic type changes and was started on IV steroids for suspected adrenal insufficiency Blood pressure has since improved 06/15-no further dizziness or orthostatic symptoms noted We will hold IV fluids at this time and monitor blood pressure trend closely (2) Hypotension: Plan: Hypotension,? Medication induced versus ?Adrenal insufficiency Remains 8090 systolic despite 3 L crystalloid. Did take diltiazem/metoprolol/Zanaflex this morning. No chest pain/chest pressure. Did have some hyperventilation with a panic attack, this lasted 1 to 2 minutes and otherwise patient has no wheezing or shortness of breath on reassessment. Has remained with SPO2 greater than 95% throughout duration in ER No history of chronic steroid use/suppression Random cortisol 12.19, nonspecific/nondiagnostic. AI is not excluded. No hyperkalemia. Mild NAGMA. -Given continued hypotension despite 3L crystalloid resuscitation with normal p.o. intake prior to this and no signs of sepsis will treat empirically with hydrocortisone 100 mg x1 & 50mg every 6hrs. Defer cosyntropin stim to outpatient if needed. DDx of hypotension includes medication effect, however patient has not taken any medications since 7 AM. 06/14-blood pressure trends have improved since admission We will hold IV hydrocortisone and continue patient on IV fluids and monitor blood pressure trend closely 06/15-IV hydrocortisone held her blood pressure trend is stabilized We will hold IV fluids and monitor blood pressure trend over next 24 hours If patient remains stable Case management to assist with reaching out to [facility] orthopedics for facilitating Follow-up Patient can also be DC'd over the next 1 to 2 days to follow-up with the [facility] with the immobilizer and partial weightbearing (3) Closed left tibial fracture: Plan: L Periprosthetic Fracture - XR left knee:There is a left total knee arthroplasty. The hardware appears intact. There is anterior soft tissue swelling within the proximal left lower leg. There is a distracted periprosthetic/avulsion fracture within the anterior proximal tibia. This demonstrates up to 1 cm of distraction. There is a small joint effusion. - [place] knee was performed at [facility] Orthopedics consulted Nonweightbearing at this time 06/14-patient seen by orthopedics and deemed not a surgical candidate at this time Orthopedics advised patient to follow-up with her primary surgeon in [facility] Immobilizer placed and patient advised partial weightbearing by orthopedics (4) Hypertension: Plan: Antihypertensives held for hypotension (5) CAD (coronary artery disease): Plan: CAD Prior high-sensitivity troponins negative, patient without anginal symptoms Continue aspirin, statin, metoprolol, Imdur Echo 05/14/2022: EF 60 to 65%, no regional wall motion abnormality, moderate concentric LVH, no significant valvular abnormalities. Type I diastolic dysfun ction (6) Hypothyroid: Plan: Hypothyroidism With increasing TSH last noted 05/14/2022. Repeat TSH pending Patient previously on alternating between Synthroid 25 mcg at 50 mcg daily (7) Diabetes mellitus: Plan: DM Metformin/semaglutide held BSG AC/at bedtime, goal [id number] Basal 9 units twice daily, CF 45, carb ratio 15 (8) Dyslipidemia: Plan: Hyperlipidemia Continue statin (9) Lumbar radiculopathy: Plan: Peripheral neuropathy Continue pregabalin to 25 mg p.o. twice daily, duloxetine 60 mg daily Diazepam previously discontinued ? Contribution to orthostasis. (10) Thoracic facet syndrome: Plan: Thoracic facet syndrome S/p bilateral T4/T5 radiofrequency ablation 05/22/2022 with pain management - Pt has not had benefit, continues to have chest pain at her braline in the back and muscle cramps Back pain at her bra line is reproducible on palpation with increased muscle tenderness. No radiation into the chest at time of exam (11) Spinal stenosis, lumbar region with neurogenic claudication: Plan: Lumbar radiculopathy, chronic On Tylenol with breakthrough hydrocodone/acetaminophen every 8 hours Zanaflex held for hypotension (12) GERD (gastroesophageal reflux disease): Plan: GERD Continue PPI, pantoprazole while inpatient Plan DVT prophylaxis: Heparin SQ Diet: N.p.o. pending orthopedic eval, IV FM with Normosol CODE STATUS: Full Disposition: PCU Admission and Anticipated Discharge Date Admission Date: June 13, 2022 Subjective Patient reports continued improvement in her leg pain with immobilizer placement No acute chest pain or shortness of breath noted No further dizziness reported Physical Exam Physical Exam: Head and ENT no thyroid enlargement trachea midline Cardiovascular S1-S2 are normal no S3 Lungs bilateral air entry fair no wheezing Abdomen soft nondistended positive bowel sounds no rebound tenderness Extremity shows trace edema immobilizer placed in the left lower extremity for closed left tibial fracture Distal pulses felt well Neurologically no focal deficits Skin shows no rash Results & Data Results & Data ([facility]) Vital Signs (Past 12 Hours) Vital Signs Temp Pulse Pulse Resp BP Pulse Ox O2 Del Method 06/15/22 16:38 36.7 C 76 20 142/87 H 94 Room Air 06/15/22 12:54 36.5 C 77 18 146/89 H 94 Room Air 06/15/22 08:51 36.3 C L 76 18 126/84 93 Nasal Cannula 06/15/22 07:58 77 O2 Flow Rate 06/15/22 16:38 06/15/22 12:54 06/15/22 08:51 2 06/15/22 07:58 PG Care Time/CCT Total # of Minutes Spent Total Time Spent with Patient: Total time spent is greater than 50% in coordination of care (as documented) at patient's floor/unit and/or counseling patient: Coding Level of Care Code 89163 SUB INP/OBS CARE 235MIN Diagnoses Near syncope R55 Hypotension I95.9 Closed left tibial fracture S82.102A Encounter type: initial encounter Fracture morphology: unspecified fracture morphology Tibia location: proximal Hypertension I10 CAD (coronary artery disease) I25.10 Hypothyroid E03.9 Diabetes mellitus E11.9 Dyslipidemia E78.5 Lumbar radiculopathy M54.16 Thoracic facet syndrome M47.894 Spinal stenosis, lumbar region with neurogenic claudication M48.062 GERD (gastroesophageal reflux disease) K21.9 (3) Closed left tibial fracture Encounter type: initial encounter Fracture morphology: unspecified fracture morphology Tibia location: proximal Qualified Code(s): S82.102A - Unspecified fracture of upper end of left tibia, initial encounter for closed fracture
[2022-06-15] MEDS: ACETAMINOPHEN 325 MG TAB PO PRN (19:16)
[2022-06-15] MEDS: tiZANidine HCL 4 MG TABLET PO PRN (19:56)
[2022-06-15] MEDS: MELATONIN 3 MG TAB PO PRN (22:01)
[2022-06-16 01:57] LABS: Codeine Urine NEGATIVE ng/mL (<50); Hydrocodone Urine 1180 ng/mL (<50); Hydromor Urine 271 ng/mL (<50); Morphine Urine NEGATIVE ng/mL (<50); Norhydrocodone Conf Ur 672 ng/mL (<50); Noroxycodone Urine NEGATIVE ng/mL (<50); Oxycodone Urine NEGATIVE ng/mL (<50); Oxymorph Urine NEGATIVE ng/mL (<50)
[2022-06-16] MEDS: HYDROmorphone INJ 0.5 MG/0.5 ML SYR IV PRN ×4 (02:51→20:08)
[2022-06-16] MEDS: HEPARIN SOD 5,000 UNIT/0.5 ML VIAL SQ SCH ×3 (05:23→20:07)
[2022-06-16] MEDS: LEVOTHYROXINE SODIUM 25 MCG TABLET PO SCH (05:23)
[2022-06-16] MEDS: PANTOprazole 40 MG TAB PO SCH (07:58)
[2022-06-16] MEDS: tiZANidine HCL 4 MG TABLET PO PRN ×3 (07:59→20:57)
[2022-06-16] MEDS: ASPIRIN 81 MG ECTAB PO SCH (08:03)
[2022-06-16] MEDS: DULoxetine HCL 60 MG CAP PO SCH (08:03)
[2022-06-16] MEDS: ROSUVASTATIN CALCIUM 20 MG TAB PO SCH (08:04)
[2022-06-16] MEDS: PREGABALIN 75 MG CAP PO SCH ×2 (08:07→20:08)
[2022-06-16] MEDS: LANTUS PER UNIT CHARGE SQ SCH ×2 (08:08→20:21)
[2022-06-16] MEDS: INSULIN ASPART PER UNIT SC SCH ×4 (11:52→20:17)
[2022-06-16] MEDS ORDERED: hydrALAZINE HCL 20 MG/ML VIAL IV PRN (12:04)
--- NOTE | 2022-06-16 12:19 | Hospitalist Progress Note ---
Date of Service June 16, 2022 Assessment & Plan (1) Near syncope: Plan: Most likely from orthostasis. She has labile hypertension probably from underlying autonomic nervous system dysfunction. Losartan was previously discontinued prior to this admission and diltiazem discontinued this admission. She remains on metoprolol. Will use as needed intravenous hydralazine for elevated systolic pressures but avoid continuous dosing. (2) Hypotension: Plan: Labile hypertension alternating with hypotension probably caused her near syncope. More than likely she has underlying autonomic nervous system dysfunction. Losartan was previously discontinued prior to this hospitalization and now diltiazem has been discontinued. We will continue metoprolol for now. Use intravenous hydralazine as needed for occurrences of elevated systolic blood pressures. This can be converted to p.o. hydralazine as needed for same at the time of discharge. No evidence of adrenal insufficiency. Steroid therapy has been discontinued. (3) Closed left tibial fracture: Plan: L Periprosthetic Fracture. Immobilizer in place. Appreciate orthopedic consultation and recommendations. Pain control measures. Eventual referral back to [facility] orthopedics for intervention. Continue nonweightbearing status. (4) Hypertension: Plan: Continue metoprolol. Use intravenous hydralazine as needed elevated systolic pressures. This can be converted to oral dosing at the time of discharge. Will avoid continuous hydralazine dosing to prevent orthostasis (5) CAD (coronary artery disease): Plan: Stable. Continue current medical management with aspirin, statin, metoprolol, Imdur. Echo 05/14/2022: EF 60 to 65%, no regional wall motion abnormality, moderate concentric LVH, no significant valvular abnormalities, type I diastolic dysfunction (6) Hypothyroid: Plan: Continue levothyroxine replacement therapy. Serial labs as outpatient (7) Diabetes mellitus: Plan: ADA diet. Sliding scale coverage as needed. Temporarily on Lantus therapy. Restart metformin and semaglutide at discharge (8) Dyslipidemia: Plan: Stable. Continue statin (9) Lumbar radiculopathy: Plan: Treated with pregabalin to 25 mg p.o. twice daily, duloxetine 60 mg daily. (10) Thoracic facet syndrome: Plan: S/p bilateral T4/T5 radiofrequency ablation 05/22/2022 with pain management. Continues to have chest pain at her braline in the back and muscle cramps. Pain control measures (11) Spinal stenosis, lumbar region with neurogenic claudication: Plan: Chronic. Hydrocodone/acetaminophen every 8 hours prn. Supportive care. Pain control measures (12) GERD (gastroesophageal reflux disease): Plan: Stable. Treated with PPI therapy Plan DVT prophylaxis: Heparin SQ Disposition: OT and PT assessments requested. Anticipate discharge to SNF or [facility] facility. Admission and Anticipated Discharge Date Admission Date: June 13, 2022 Subjective Alert and oriented. We discussed blood pressure management at length. She states she is alternatively hypertensive and hypotensive and this probably indicates underlying autonomic nervous system dysfunction. Will use intravenous hydralazine on a as needed basis for elevated systolic pressures. This can continue with oral tablets as an outpatient as needed. We will avoid continuous dosing to prevent hypotension. OT and PT assessments requested. Case management will need to get involved since she probably will need placement. Orthopedics recommends eventual reevaluation of the left tibial plateau fracture (which is periprosthetic in nature) in [place] where she had previous surgeries done. Review of Systems Review of Systems: Constitutional-no fever or chills ENT-no blurred vision, no double vision, no epistaxis, no sore throat Respiratory-no cough, no wheezing, no shortness of breath Cardiac-no palpitations, no chest pain, no syncope GI-no nausea, vomiting, diarrhea, melena, hematochezia -no urinary retention, no urinary incontinence, no dysuria, no hematuria Musculoskeletal-left knee immobilized from known underlying left tibial plateau fracture Skin-no bruising, no rashes, no pruritus Neuro-no isolated weakness, no paresthesia, no weakness Psych-no depression, no anxiety Physical Exam Physical Exam: General-alert and oriented x3, no fevers, no chills HEENT-head atraumatic and normocephalic, pupils equal and reactive to light, extraocular muscles intact Neck-no lymphadenopathy or thyromegaly, trachea midline Chest-clear to auscultation percussion. No rales wheezing or rhonchi Cardiac-regular rate and rhythm, normal S1 and S2 Abdomen-normal bowel sounds, nontender, no hepatosplenomegaly Extremities-left knee immobilizer in place. Neuro-cranial nerves II through XII intact, motor and sensory function within normal limits, strength symmetrical , no focal deficits Psych-normal affect, normal mood Results & Data Results & Data ([facility]) Vital Signs (Past 12 Hours) Vital Signs Temp Pulse Resp BP Pulse Ox O2 Del Method 06/16/22 11:39 36.7 C 73 18 137/86 94 Room Air 06/16/22 07:55 36.4 C L 68 18 151/95 H 96 Room Air 06/16/22 02:48 36.3 C L 74 18 130/85 95 Room Air Laboratory Results 06/14/22 05:42 06/14/22 05:42 PG Care Time/CCT Total # of Minutes Spent Total Time Spent with Patient: Total time spent is greater than 50% in coordination of care (as documented) at patient's floor/unit and/or counseling patient: Coding Level of Care Code 83074 SUB INP/OBS CARE 3/50MIN Diagnoses Near syncope R55 Hypotension I95.9 Closed left tibial fracture S82.102A Encounter type: initial encounter Fracture morphology: unspecified fracture morphology Tibia location: proximal Hypertension I10 CAD (coronary artery disease) I25.10 Hypothyroid E03.9 Diabetes mellitus E11.9 Dyslipidemia E78.5 Lumbar radiculopathy M54.16 Thoracic facet syndrome M47.894 Spinal stenosis, lumbar region with neurogenic claudication M48.062 GERD (gastroesophageal reflux disease) K21.9 (3) Closed left tibial fracture Encounter type: initial encounter Fracture morphology: unspecified fracture morphology Tibia location: proximal Qualified Code(s): S82.102A - Unspecified fracture of upper end of left tibia, initial encounter for closed fracture
[2022-06-16] MEDS: MELATONIN 3 MG TAB PO PRN (20:08)
[2022-06-17] MEDS: HYDROmorphone INJ 0.5 MG/0.5 ML SYR IV PRN ×3 (01:10→11:34)
[2022-06-17] MEDS: ACETAMINOPHEN 325 MG TAB PO PRN (03:44)
[2022-06-17] MEDS: LEVOTHYROXINE SODIUM 50 MCG TABLET PO SCH (06:03)
[2022-06-17] MEDS: tiZANidine HCL 4 MG TABLET PO PRN (08:08)
[2022-06-17] MEDS: ROSUVASTATIN CALCIUM 20 MG TAB PO SCH (08:11)
[2022-06-17] MEDS: DULoxetine HCL 60 MG CAP PO SCH (08:12)
[2022-06-17] MEDS: PANTOprazole 40 MG TAB PO SCH (08:12)
[2022-06-17] MEDS: HEPARIN SOD 5,000 UNIT/0.5 ML VIAL SQ SCH (08:12)
[2022-06-17] MEDS: ASPIRIN 81 MG ECTAB PO SCH (08:12)
[2022-06-17] MEDS: PREGABALIN 75 MG CAP PO SCH (08:25)
[2022-06-17] MEDS: INSULIN ASPART PER UNIT SC SCH ×2 (08:25→12:37)
[2022-06-17] MEDS: LANTUS PER UNIT CHARGE SQ SCH (08:26)
--- NOTE | 2022-06-17 12:46 | Discharge Summary ---
Date of Service June 17, 2022 Admission HPI Per Admitting Provider La Nichols is a 61-year-old female with a past medical history of recurrent syncope, hypertension, hypothyroidism, dyslipidemia, DM, CAD who presented to the emergency department by ambulance after an episode of dizziness when standing which caused her to fall to the ground injuring her left knee. La is seen at the bedside. She reports that after being discharged from hospital last month she recovered to her normal baseline. She has not had any fever, chills, dysuria, cough, shortness of breath, difficulty breathing, chest pain, nausea/vomiting, or URI symptoms in the last few days/weeks. She reports that she did go to stand today and felt weak and dizzy which caused her to drop to her left knee with immediate pain in the left knee. She did not lose consciousness completely, but reports she felt a very lightheaded and globally weak. She did not feel like she was going to pass out. She reports she has been eating and drinking normally, and is peeing normally with light yellow urine. Has not had decreased intake, and has not had any abdominal pain or diarrhea. Her losartan was discontinued last month. She is continue to take diltiazem, metoprolol for blood pressure and she also takes tizanidine for muscle spasms in her back. She did take these this morning around 7 AM. She has a history of hypothyroidism with her thyroid medication increased 1 month ago, no history of steroid use or known adrenal insufficiency. EMS was called due to her lightheadedness and severe pain in her knee, she was found to be hypotensive. She received 1 L of saline by EMS, and an additional 2 L in the emergency department but remains borderline hypotensive with pressures in the 90s. She does not have a history of heart failure, EF on last echo was preserved, and she has not had any chest pain/chest pressure with a sinus rhythm and negative troponin on initial ER evaluation Medical History: Reviewed Medications: Reviewed Surgical History: Reviewed Allergies: Reviewed Social History: Denies tobacco and alcohol use Code Status: Full ER Reivew: XR pelvis: No evidence of acute fracture XR left knee:There is a left total knee arthroplasty. The hardware appears intact. There is anterior soft tissue swelling within the proximal left lower leg. There is a distracted periprosthetic/avulsion fracture within the anterior proximal tibia. This demonstrates up to 1 cm of distraction. There is a small joint effusion. CXR: No acute findings, no evidence of pneumonia EKG: NSR, first-degree AV block, similar morphology to 05/14/2022. No territorial ST/T wave changes No leukocytosis, hemoglobin 11.3, last hemoglobin 05/14/2022 11.4 Coags normal VB.3 / No sodium/potassium abnormalities Creatinine baseline is less than 1, creatinine acutely elevated on admission to 1.37, BUN/CR ratio 24.1 Admitting lactate 2.5, received 1 L NSS with repeat lactate wnl Procalcitonin negative Principal Diagnosis Labile hypertension with recurrent orthostatic hypotension, suspected autonomic nervous system dysfunction, near syncope Discharge Exam General-alert and oriented x3, no fevers, no chills HEENT-head atraumatic and normocephalic, pupils equal and reactive to light, extraocular muscles intact Neck-no lymphadenopathy or thyromegaly, trachea midline Chest-clear to auscultation percussion. No rales wheezing or rhonchi Cardiac-regular rate and rhythm, normal S1 and S2 Abdomen-normal bowel sounds, nontender, no hepatosplenomegaly Extremities-left knee immobilizer in place. Neuro-cranial nerves II through XII intact, motor and sensory function within normal limits, strength symmetrical , no focal deficits Psych-normal affect, normal mood Discharge Data Allergies Allergy/AdvReac Type Severity Reaction Status Date / Time nickel Allergy Intermediate Hives Verified 05/22/22 13:08 Consultations 06/13/22 14:07 ED Decision to Admit Stat 06/13/22 17:49 Consult Orthopedic Surgery Routine Hospital Course (1) Near syncope: Most likely from orthostasis. She has labile hypertension probably from underlying autonomic nervous system dysfunction. Losartan was previously discontinued prior to this admission and diltiazem discontinued this admission. She remains on metoprolol. Will use as needed intravenous hydralazine for elevated systolic pressures but avoid continuous dosing. Switch to as needed oral hydralazine at discharge (2) Hypotension: Labile hypertension alternating with hypotension probably caused her near syncope. More than likely she has underlying autonomic nervous system dysfunction. Losartan was previously discontinued prior to this hospitalization and now diltiazem has been discontinued. We will continue metoprolol for now. Use intravenous hydralazine as needed for occurrences of elevated systolic blood pressures. This will be converted to p.o. hydralazine as needed for same at the time of discharge. No evidence of adrenal insufficiency. Steroid therapy has been discontinued. (3) Closed left tibial fracture: L Periprosthetic Fracture. Immobilizer in place. Appreciate orthopedic consultation and recommendations. Pain control measures. Eventual referral back to [facility] orthopedics for intervention. Continue nonweightbearing status. (4) Hypertension: Continue metoprolol. Use intravenous hydralazine while hospitalized as needed elevated systolic pressures. This will be converted to oral dosing at the time of discharge. Will avoid continuous hydralazine dosing to prevent orthostasis (5) CAD (coronary artery disease): Stable. Continue current medical management with aspirin, statin, metoprolol, Imdur. Echo 05/14/2022: EF 60 to 65%, no regional wall motion abnormality, moderate concentric LVH, no significant valvular abnormalities, type I diastolic dysfunction (6) Hypothyroid: Continue levothyroxine replacement therapy. Serial labs as outpatient (7) Diabetes mellitus: ADA diet. Sliding scale coverage as needed. Temporarily on Lantus therapy. Restart metformin and semaglutide at discharge (8) Dyslipidemia: Stable. Continue statin (9) Lumbar radiculopathy: Treated with pregabalin to 25 mg p.o. twice daily, duloxetine 60 mg daily. (10) Thoracic facet syndrome: S/p bilateral T4/T5 radiofrequency ablation 05/22/2022 with pain management. Continues to have chest pain at her braline in the back and muscle cramps. Pain control measures (11) Spinal stenosis, lumbar region with neurogenic claudication: Chronic. Hydrocodone/acetaminophen every 8 hours prn. Supportive care. Pain control measures (12) GERD (gastroesophageal reflux disease): Stable. Treated with PPI therapy Plan DVT prophylaxis: Heparin SQ Disposition: Discharge to home with home health services today, June 17 Total Time Total Time Spent Total Time Spent (In Minutes): 40 minutes Discharge Plan Discharge Items Patient Disposition: Home - Home Health Services Reason For Visit: PRESYNCOPE, HYPOTENSION, L PERIPROSTHETIC KNEE FXR Discharge Diagnosis: Orthostatic hypotension with near syncope, suspected autonomic nervous system dysfunction Activity: Resume your previous activity Non-emergency contact: Primary Care Provider Call non-emergency contact if: you have any medication questions Follow-up/Referrals: [place],Jonny D, [facility] [Primary Care Provider] - Diet: Carb Consistent or DM2 and Heart Healthy Addtl Attending Provider Instructions: Take hydralazine as needed for systolic blood pressure higher than 180. Diltiazem has been discontinued. Continue metoprolol. See primary care provider for referral back to [place] [facility] for eventual repair of lower left leg fracture Pending Studies at Discharge: No Stand-Alone Forms: [employer], Smoking Cessation Medications and DC Order Prescriptions: New hydralazine 25 mg tablet 25 mg PO Q6H MDD 100mg PRN (Reason: SBP > 180) Qty: 60 0RF Continued tizanidine 2 mg capsule 2 mg PO BID PRN (Reason: MUSCLE SPASMS) metoprolol tartrate 25 mg tablet 25 mg PO DAILY aspirin 81 mg tablet,delayed release (DR/EC) 81 mg PO DAILY cetirizine 10 mg tablet 10 mg PO BID PRN (Reason: Other) duloxetine 60 mg capsule,delayed release(DR/EC) 60 mg PO DAILY etodolac 500 mg tablet 500 mg PO BID metformin 500 mg tablet 1,000 mg PO BID omeprazole 20 mg capsule,delayed release(DR/EC) 20 mg PO DAILY semaglutide 1 mg/dose (2 mg/1.5 mL) pen injector 2 mg subcut WK Patient Comments: Takes on Sundays camphor-menthol 0.5-0.5 % lotion 1 applic topical TID lidocaine 5 % ointment 1 applic topical BID magnesium oxide 420 mg tablet 420 mg PO DAILY pregabalin 225 mg capsule 225 mg PO BID rosuvastatin 20 mg tablet 20 mg PO DAILY levothyroxine 25 mcg tablet 25 mcg PO Q OTHER DAY Rx Instructions: ALTERNATES WITH 50 MG QOD. levothyroxine 50 mcg tablet 50 mcg PO Q OTHER DAY Rx Instructions: ALTERNATES WITH 25 MG QOD. Discontinued diltiazem HCl 120 mg capsule,extended release 12 hr 120 mg PO DAILY isosorbide mononitrate 30 mg tablet extended release 24 hr 30 mg PO DAILY Qty: 30 0RF Discharge Orders: Discharge Order (Routine); Ordered 06/17/22 Ordered By: Jessee Wen/Other Patient Handouts: Managing Type 2 Diabetes Admission Data Admit Date/Time: 06/13/22 14:53 Attending Provider: Jessee Harp Admit Provider: Esvin Knott Primary Care Provider: Jonny Lyman Other Providers: Esvin Knott ; Franky Pineda ; [facility] Coding Level of Care Code HOSP INP/OBS DISCH >30 MIN Diagnoses Near syncope R55 Hypotension I95.9 Closed left tibial fracture S82.102A Encounter type: initial encounter Fracture morphology: unspecified fracture morphology Tibia location: proximal Hypertension I10 CAD (coronary artery disease) I25.10 Hypothyroid E03.9 Diabetes mellitus E11.9 Dyslipidemia E78.5 Lumbar radiculopathy M54.16 Thoracic facet syndrome M47.894 Spinal stenosis, lumbar region with neurogenic claudication M48.062 GERD (gastroesophageal reflux disease) K21.9
== END 2022-06-17 14:15 | disposition home health service (06) | DRG 563 ==
LOC: ED 11:33 → 4W 14:53 → SUATTDRO 14:53 → 4W 16:31

== ENCOUNTER 2022-12-30 12:10 | Observation (INO) ==
[2022-12-30 13:04] LABS: Hematocrit (blood only) 41.3 % (37.0-47.0); Hemoglobin 13.9 g/dl (12.0-16.0); Mean Corpuscular Hemoglobin 28.4 pg (25.0-34.0); Mean Corpuscular Hgb Conc 33.7 g/dL (32.0-36.0); Mean Corpuscular Volume 84.3 fL (80.0-100.0); Mean Platelet Volume 10.8 fL (9.4-12.4); Platelet Count 286 K/uL (130-400); RDW Coefficient of Variation 16.1 % (11.5-14.5); RDW Standard Deviation 49.6 fL (36.4-46.3); White Blood Count 12.54 K/ul (4.8-10.8)
--- NOTE | 2022-12-30 13:13 | XRay Report ---
XR chest 1V not portable HISTORY: 62 years-old Female Weakness acute weakness COMPARISON: 06/13/2022 TECHNIQUE: PA view of the chest FINDINGS: Cardiomediastinal and hilar silhouettes are within normal limits. No pneumothorax, pleural effusion, airspace consolidation or pulmonary edema. Bones appear grossly intact. Spondylitic spurring of the s pine. Cholecystectomy. IMPRESSION: No acute process. ACT 112: Negative or not required by law. The above report was generated using voice recognition software. It may contain grammatical, syntax o r spelling errors. Electronically signed by: Franky Castrejon M.D. 12/30/2022 1:12 PM
[2022-12-30 13:23] LABS: Albumin Level 3.9 gm/dl (3.4-5.0); Bilirubin,Total 2.5 mg/dl (0.2-1.0); Calcium 10.2 mg/dl (8.6-10.3); Magnesium 2.4 mg/dl (1.7-2.4)
[2022-12-30 13:28] LABS: Basophils # (auto) 0.07 K/uL (0.00-0.20); Basophils % (auto) 0.6 %; Dohle Bodies 1+; Echinocytes 1+; Eosinophils # (auto) 0.06 K/uL (0.00-0.50); Eosinophils % (auto) 0.5 %; Immature Granulocytes # (auto) 0.04 K/uL (0.01-0.20); Immature Granulocytes % (auto) 0.3 %; Lymphocytes # (auto) 1.21 K/uL (1.20-3.40); Lymphocytes % (auto) 9.6 %; Monocytes # (auto) 0.57 K/uL (0.11-0.59); Monocytes % (auto) 4.5 %; Neutrophils # (auto) 10.59 K/uL (1.40-6.50); Neutrophils % (auto) 84.5 %
[2022-12-30 13:29] LABS: Albumin Globulin Ratio 1.3 (0.9-2); BUN Creatinine Ratio 17.1 (10-20); Creatinine Clr Calc Pharmacy 29.7 ml/min; Est GFR (African American) 30.9 ml/min; Est GFR (Non-African American) 26.6 ml/min; Globulin 3.1 gm/dl (2.5-4.0)
[2022-12-30 13:33] LABS: Partial Thromboplastin Ratio 0.9; Partial Thromboplastin Time 25.6 Seconds (21.0-31.0); Prothrombin Time 10.7 Seconds (9.0-12.0)
[2022-12-30 13:46] LABS: Troponin I High Sensitivity 186.8 pg/ml (0-14)
[2022-12-30] MEDS ORDERED: SODIUM CHLORIDE 0.9% 1,000 ML IV ONE ×2 (14:02→14:53)
--- NOTE | 2022-12-30 14:13 | Emergency Department Note ---
Impression & Plan Syncope, ALEXANDRA (acute kidney injury), Diarrhea, Head injury, Contusion of face, Elevated troponin I level, Contusion of hip, right ED Provider Note NAME: LILLY BROWNING AGE: 62 SEX: F : 1960 ARRIVES VIA: Walk-In INFORMANT: Patient, ED PROVIDER(S): Tomas Chopra DO CHIEF COMPLAINT: Syncope HPI: The patient is a 62-year-old female who presented to the emergency department for syncope. The patient states she had multiple episodes of syncope over the course of the weekend. She thinks she may have had 3 episodes altogether. She states that she did hit her face as well as her head. She also has right-sided hip pain. She denies having any chest pain or difficulty breathing. She does state that she was carrying a glass at the time in her kitchen and she thinks she may have caught her foot. She is dressed those wounds and has no problems with that but when she called her family doctor today to be seen she was instructed to go to the emergency department for "testing". The patient denies having any headache. She states she feels "jumpy" in her arms. ROS: See above HPI for pertinent positives & negatives. A total of 10 systems reviewed and were otherwise negative. PAST MEDICAL HISTORY: See Below PAST SURGICAL HISTORY: See Below FAMILY HISTORY: See Below SOCIAL HISTORY: See Below HOME MEDICATIONS: See Below ALLERGIES: See Below VITALS: See Below PHYSICAL EXAMINATION: GENERAL: The patient is awake and alert. She is somewhat anxious appearing but overall comfortable. EYES: The conjunctivae are clear. The pupils are round and reactive. There is a small area of ecchymosis lateral to the right eye. EARS, NOSE, MOUTH AND THROAT: The nose is without any evidence of any deformity. NECK: The neck is nontender and supple. RESPIRATORY: Normal respiratory effort is noted there is no evidence of wheezing rhonchi or rales CARDIOVASCULAR: Regular rate and rhythm noted there no murmurs rubs or gallops normal S1 normal S2. GASTROINTESTINAL: There is right-sided tenderness to palpation on the abdomen. This was moderate. BACK: No midline tenderness or or step-off noted range of motion in flexion extension as well as rotation no signs of muscle spasm noted MUSCULOSKELETAL/EXTREMITIES: There is no evidence of gross deformity full range of motion is noted in the hips and shoulders. SKIN: There is no obvious evidence of any rash. There are no petechiae, pallor or cyanosis noted. NEUROLOGIC: Patient is awake alert and oriented x3 strength is symmetric patellar reflexes are 2+ bilaterally MEDICAL DECISION MAKING: Patient is a 62-year-old female who presented to the department for an evaluation of head injury. The patient describes episodes over the weekend where she was passing out. She had multiple episodes of passing out from standing position. She did have signs of facial injury. She also had right hip pain. I discussed patient's laboratory and radiographic studies with her. She was found to have tachycardia initially and also an elevated troponin. For this reason further radiographic studies were obtained including CT angiography of the chest to ensure there is no other underlying source for elevated troponin rao ch as pulmonary embolism. She was reevaluated multiple times. She was found have an elevated creatinine. It is likely her underlying issue is that she may have been dehydrated and this is why she was passing out the first place. Given her elevated troponin I do feel the patient may require further inpatient management. For this reason I discussed her condition with the on-call [facility] hospitalist. On reevaluation her vital signs were significantly improved including improved blood pressure as well as decrease tachycardia. Triage Nursing notes reviewed. Prior medical records reviewed Vital Signs: reviewed and remarkable for no significant abnormalities Differential diagnosis: Vasovagal event, dehydration, infection, hypoglycemia, electrolyte abnormalities, cardiac sources, intracerebral event, pulmonary embolism, seizure, toxicologic, neurologic, as well as other pathologies. ER treatment provided: See below Diagnostics interpreted by me: ECG: EKG was obtained in the emergency department. My interpretation is sinus tachycardia at 119 bpm. There is no ectopy. There is no acute ST segment abnormalities noted. This was compared to a tracing from June 13, 2022. No significant changes were noted. Cardiac Monitoring: An order was placed for continuous cardiac monitoring. The monitor shows a rate of 85 bpm with sinus rhythm. Laboratory studies: As stated above and show below. Imaging studies: See below. Radiographic imaging was reviewed by myself Consultation(s): I discussed this case with Dr. Darby who [facility]. Past Med/Surg History Medical History Alopecia CAD (coronary artery disease) Chest pain Diabetes mellitus Dyslipidemia Dyslipidemia GERD (gastroesophageal reflux disease) Hypertension Hypothyroid Lumbar radiculopathy Sinus tachycardia Spinal stenosis, lumbar region with neurogenic claudication Thoracic facet syndrome Thyroid dysfunction Surgical History H/O: hysterectomy partial History of cholecystectomy History of knee replacement Bilateral Hx of knee surgery Family History Mother Coronary heart disease Brother Coronary heart disease Social History Smoking Status: Never smoker Cigarettes Per Day: 3 pack years, quit 30 years ago; Second Hand Exposure: No; Do You Dip or Chew Tobacco: No; Hx Alcohol Use: No Hx Substance Use: No Preferred Language: Kiswahili Communication Ability: Effective Freezer Worker Required: No Beliefs That Will Affect Care: None marital status: Current Living Situation: Alone Current Living Situation Comment: home with two dogs current occupational status: unemployed Feels Safe at Home: Yes Assistive Devices: None Allergies Allergies Allergy/AdvReac Type Severity Reaction Status Date / Time nickel Allergy Intermediate Hives Verified 12/30/22 15:15 Home Meds Home Medications Medication Instructions Recorded Confirmed aspirin 81 mg tablet,delayed 81 mg PO DAILY 08/10/20 12/30/22 release cetirizine 10 mg tablet 10 mg PO BID PRN Congestion 08/10/20 12/30/22 duloxetine 60 mg capsule,delayed 60 mg PO DAILY neuropathy 08/10/20 12/30/22 release etodolac 500 mg tablet 500 mg PO BID 08/10/20 12/30/22 metformin 500 mg tablet 1,000 mg PO BID 08/10/20 12/30/22 omeprazole 20 mg capsule,delayed 20 mg PO DAILY 08/10/20 12/30/22 release tizanidine 2 mg capsule 2 mg PO BID PRN MUSCLE SPASMS 02/20/21 12/30/22 camphor-menthol 0.5 %-0.5 % lotion 1 applic topical TID 02/25/22 12/30/22 lidocaine 5 % topical ointment 1 applic topical BID 02/25/22 12/30/22 magnesium oxide 420 mg tablet 420 mg PO DAILY 02/25/22 12/30/22 rosuvastatin 20 mg tablet 20 mg PO DAILY 02/25/22 12/30/22 hydrocodone 7.5 mg-acetaminophen 1 tab PO Q8H PRN Pain 10/30/22 12/30/22 325 mg tablet hydroxyzine HCl 10 mg tablet 10 mg PO HS PRN Sleep 10/30/22 12/30/22 metoprolol tartrate 25 mg tablet 50 mg PO DAILY 10/30/22 12/30/22 tirzepatide 7.5 mg/0.5 mL 7.5 mg subcut WK 10/30/22 12/30/22 subcutaneous pen injector (Allison) pregabalin 300 mg capsule 300 mg PO BID 12/30/22 12/30/22 Previous Rx's Medication Instructions Recorded hydralazine 25 mg tablet 25 mg PO Q6H PRN SBP > 180 #60 tabs 06/17/22 levothyroxine 50 mcg tablet 50 mcg PO DAILY #90 tabs 11/05/22 Results & Data (ED) Vital Signs Vital Signs - 24 hr 12/30/22 12:17 12/30/22 12:11 12/30/22 12:20 Temperature 35.9 C L Temperature Source Temporal Artery Scan Pulse Rate 115 H Pulse Rate from SpO2 Sensor Pulse Rhythm Regular Pulse Strength Normal Respiratory Rate 20 Respiratory Effort / Characteristics Non-Labored Spontaneous Non-Labored Respiratory Depth Normal Normal Respiratory Pattern Regular Blood Pressure 109/69 Blood Pressure Mean 82 Blood Pressure Position Sitting Pulse Oximetry 96 98 98 Oxygen Delivery Method Room Air Room Air Room Air Sepsis Recent Fever Within 48 Hours No Sepsis New/Unexplained Change in Mental Status No Sepsis Action Taken by Nursing No Action Required 12/30/22 12:20 12/30/22 14:10 12/30/22 14:27 Temperature Temperature Source Pulse Rate 104 H 102 H Pulse Rate from SpO2 Sensor 102 H Pulse Rhythm Pulse Strength Respiratory Rate 22 Respiratory Effort / Characteristics Respiratory Depth Respiratory Pattern Blood Pressure Blood Pressure Mean Blood Pressure Position Pulse Oximetry 998 H 94 Oxygen Delivery Method Room Air Sepsis Recent Fever Within 48 Hours Sepsis New/Unexplained Change in Mental Status Sepsis Action Taken by Nursing 12/30/22 14:27 12/30/22 14:46 12/30/22 15:00 Temperature Temperature Source Pulse Rate Pulse Rate from SpO2 Sensor Pulse Rhythm Pulse Strength Respiratory Rate Respiratory Effort / Characteristics Respiratory Depth Respiratory Pattern Blood Pressure 95/67 L 101/72 98/66 L Blood Pressure Mean 77 85 75 Blood Pressure Position Pulse Oximetry Oxygen Delivery Method Sepsis Recent Fever Within 48 Hours Sepsis New/Unexplained Change in Mental Status Sepsis Action Taken by Nursing 12/30/22 15:00 12/30/22 15:40 12/30/22 15:40 Temperature Temperature Source Pulse Rate 94 H 93 H Pulse Rate from SpO2 Sensor 94 H Pulse Rhythm Pulse Strength Respiratory Rate 16 17 Respiratory Effort / Characteristics Respiratory Depth Respiratory Pattern Blood Pressure 104/72 Blood Pressure Mean 90 Blood Pressure Position Pulse Oximetry 96 Oxygen Delivery Method Sepsis Recent Fever Within 48 Hours Sepsis New/Unexplained Change in Mental Status Sepsis Action Taken by Nursing 12/30/22 16:01 12/30/22 16:01 Temperature Temperature Source Pulse Rate 85 Pulse Rate from SpO2 Sensor 85 Pulse Rhythm Pulse Strength Respiratory Rate 18 Respiratory Effort / Characteristics Respiratory Depth Respiratory Pattern Blood Pressure 129/86 Blood Pressure Mean 94 Blood Pressure Position Pulse Oximetry 97 Oxygen Delivery Method Sepsis Recent Fever Within 48 Hours Sepsis New/Unexplained Change in Mental Status Sepsis Action Taken by Correction Medications Current Medication List: was personally reviewed by me Laboratory Data Attestation: I reviewed the patient's lab results. 12/30/22 12:35 12/30/22 12:35 Lab Results 12/30/22 12/30/22 12/30/22 Range/Units 12:35 12:35 12:35 WBC 12.54 H (4.8-10.8) K/ul RBC 4.90 (4.20-5.40) M/uL Hgb 13.9 (12.0-16.0) g/dl Hct 41.3 (37.0-47.0) % MCV 84.3 (80.0-100.0) fL MCH 28.4 (25.0-34.0) pg MCHC 33.7 (32.0-36.0) g/dL RDW Std Deviation 49.6 H (36.4-46.3) fL RDW Coeff of Kamila 16.1 H (11.5-14.5) % Plt Count 286 (130-400) K/uL MPV 10.8 (9.4-12.4) fL Immature Gran % (Auto) 0.3 % Neut % (Auto) 84.5 % Lymph % (Auto) 9.6 % [facility] % (Auto) 4.5 % Eos % (Auto) 0.5 % Baso % (Auto) 0.6 % Neut # (Auto) 10.59 H (1.40-6.50) K/uL Lymph # (Auto) 1.21 (1.20-3.40) K/uL [facility] # (Auto) 0.57 (0.11-0.59) K/uL Eos # (Auto) 0.06 (0.00-0.50) K/uL Baso # (Auto) 0.07 (0.00-0.20) K/uL Immature Gran # (Auto) 0.04 (0.01-0.20) K/uL Dohle Bodies 1+ Echinocytes 1+ PT 10.7 (9.0-12.0) Seconds INR 1.0 (0.9-1.1) APTT 25.6 (21.0-31.0) Seconds PTT Ratio 0.9 Sodium 134 L (136-145) mmol/L Potassium 4.0 (3.5-5.1) mmol/L Chloride 101 (98-107) mmol/L Carbon Dioxide 21 (21-32) mmol/L Anion Gap 12 H (3-11) BUN 34 H (6-23) mg/dl Creatinine 1.99 H (0.6-1.2) mg/dl Est Cr Clr Drug Dosing 29.7 ml/min Est GFR ( Amer) 30.9 ml/min Est GFR (Non-Af Amer) 26.6 ml/min BUN/Creatinine Ratio 17.1 (10-20) Glucose 125 H (70-99(Fasting)) mg/dl Calcium 10.2 (8.6-10.3) mg/dl Magnesium 2.4 (1.7-2.4) mg/dl Total Bilirubin 2.5 H (0.2-1.0) mg/dl AST 20 (13-39) U/L ALT 15 (7-52) U/L Alkaline Phosphatase 101 (34-104) U/L Troponin I High Sens 186.8 H* (0-14) pg/ml Total Protein 7.0 (6.0-8.3) gm/dl Albumin 3.9 (3.4-5.0) gm/dl Globulin 3.1 (2.5-4.0) gm/dl Albumin/Globulin Ratio 1.3 (0.9-2) TSH (0.300-4.500) uIu/ml Urine Color Urine Appearance (Clear) Urine pH (4.5-7.5) Ur Specific [place] (1.000-1.030) Urine Protein (Negative) Urine Glucose (UA) (Negative) Urine Ketones (Negative) Urine Blood (Negative) Urine Nitrite (Negative) Urine Bilirubin (Negative) Urine Urobilinogen (Negative) Ur Leukocyte Esterase (Negative) Urine WBC (Auto) (0-5) /hpf Urine RBC (Auto) (0-4) /hpf U Hyaline Cast (Auto) (0-5) /lpf U Epithel Cells (Auto) (0-5) /lpf Urine Bacteria (Auto) (Negative) Ur Renal Epithelial Cell Granular Casts (0) /lpf 12/30/22 12/30/22 12/30/22 Range/Units 12:35 16:01 16:25 WBC (4.8-10.8) K/ul RBC (4.20-5.40) M/uL Hgb (12.0-16.0) g/dl Hct (37.0-47.0) % MCV (80.0-100.0) fL MCH (25.0-34.0) pg MCHC (32.0-36.0) g/dL RDW Std Deviation (36.4-46.3) fL RDW Coeff of Kamila (11.5-14.5) % Plt Count (130-400) K/uL MPV (9.4-12.4) fL Immature Gran % (Auto) % Neut % (Auto) % Lymph % (Auto) % [facility] % (Auto) % Eos % (Auto) % Baso % (Auto) % Neut # (Auto) (1.40-6.50) K/uL Lymph # (Auto) (1.20-3.40) K/uL [facility] # (Auto) (0.11-0.59) K/uL Eos # (Auto) (0.00-0.50) K/uL Baso # (Auto) (0.00-0.20) K/uL Immature Gran # (Auto) (0.01-0.20) K/uL Dohle Bodies Echinocytes PT (9.0-12.0) Seconds INR (0.9-1.1) APTT (21.0-31.0) Seconds PTT Ratio Sodium (136-145) mmol/L Potassium (3.5-5.1) mmol/L Chloride (98-107) mmol/L Carbon Dioxide (21-32) mmol/L Anion Gap (3-11) BUN (6-23) mg/dl Creatinine (0.6-1.2) mg/dl Est Cr Clr Drug Dosing ml/min Est GFR ( Amer) ml/min Est GFR (Non-Af Amer) ml/min BUN/Creatinine Ratio (10-20) Glucose (70-99(Fasting)) mg/dl Calcium (8.6-10.3) mg/dl Magnesium (1.7-2.4) mg/dl Total Bilirubin (0.2-1.0) mg/dl AST (13-39) U/L ALT (7-52) U/L Alkaline Phosphatase (34-104) U/L Troponin I High Sens 176.8 H* (0-14) pg/ml Total Protein (6.0-8.3) gm/dl Albumin (3.4-5.0) gm/dl Globulin (2.5-4.0) gm/dl Albumin/Globulin Ratio (0.9-2) TSH 3.793 (0.300-4.500) uIu/ml Urine Color Yellow Urine Appearance Cloudy A (Clear) Urine pH 6.5 (4.5-7.5) Ur Specific [place] 1.023 (1.000-1.030) Urine Protein 2+ H (Negative) Urine Glucose (UA) Negative (Negative) Urine Ketones Negative (Negative) Urine Blood Trace H (Negative) Urine Nitrite Negative (Negative) Urine Bilirubin Negative (Negative) Urine Urobilinogen Negative (Negative) Ur Leukocyte Esterase Negative (Negative) Urine WBC (Auto) 5-10 H (0-5) /hpf Urine RBC (Auto) 5-10 H (0-4) /hpf U Hyaline Cast (Auto) 10-30 H (0-5) /lpf U Epithel Cells (Auto) >30 H (0-5) /lpf Urine Bacteria (Auto) Negative (Negative) Ur Renal Epithelial Cell Not Reportable Granular Casts 1-5 H (0) /lpf Administered Medications Discontinued Medications Sodium Chloride (Nss 1000ml) 1,000 mls @ 999 mls/hr IV .Q1H1M ONE Stop: 12/30/22 15:02 Last Infusion: 12/30/22 16:13 Dose: 0 mls/hr Documented By: Admin: 12/30/22 14:24 Dose: 999 mls/hr Documented By: MARSHALL Sodium Chloride (Nss 1000ml) 1,000 mls @ 999 mls/hr IV .Q1H1M ONE Stop: 12/30/22 15:53 Last Infusion: 12/30/22 17:08 Dose: 0 mls/hr Documented By: Admin: 12/30/22 15:40 Dose: 999 mls/hr Documented By: MARSHALL Ioversol (Ioversol 350 Mg 125ml Prefilled Syringe) 117 ml IV ONCE ONE Stop: 12/30/22 15:29 Last Admin: 12/30/22 15:28 Dose: 117 ml Documented By: JAYME Imaging Data Attestation: I personally reviewed and interpreted this imaging study as follows: My Impression: 1 view chest x-ray was obtained in the emergency department. My interpretation is no free air or definite infiltrate, final report below. Radiologist's Impression: Chest X-Ray 12/30/22 12:20 XR chest 1V not portable HISTORY: 62 years-old Female Weakness acute weakness COMPARISON: 06/13/2022 TECHNIQUE: PA view of the chest FINDINGS: Cardiomediastinal and hilar silhouettes are within normal limits. No pneumothorax, pleural effusion, airspace consolidation or pulmonary edema. Bones appear grossly intact. Spondylitic spurring of the spine. Cholecystectomy. IMPRESSION: No acute process. ACT 112: Negative or not required by law. The above report was generated using voice recognition software. It may contain grammatical, syntax or spelling errors. Electronically signed by: Franky Castrejon M.D. 12/30/2022 1:[address] 12/30/22 14:02 CT cervical spine wo con CLINICAL HISTORY: syncope TECHNIQUE: Multidetector row helical CT of the cervical spine was performed without administration of intravenous contrast. Coronal and sagittal reformations were obtained. Automated dose lowering techniques and/or adjustment according to patient size were utilized for this exam. Comparison: Comparison is made to CT cervical spine 05/13/2022 FINDINGS: No acute fractures or subluxations are identified. Degenerative changes are seen in the visualized spine. The alignment is normal. Soft tissues are unremarkable. IMPRESSION: Degenerative changes without evidence of acute bony injury. ACT 112: Negative or not required by law. Electronically signed by: Delon Hunt M.D. 12/30/2022 3:[address] 12/30/22 14:[address] DOSE: HISTORY: Fall. syncope TECHNIQUE: Multiaxial CT images of the maxillofacial region were performed and reformatted in the coronal plane without the use of contrast. A dose lowering technique was utilized adhering to the principles of ALARA. COMPARISON: None. FINDINGS: Slight irregularity of the right nasal bone consistent with an age- indeterminate fracture. The nasal septum is intact. The visualized cervical spine, skull base, mandible, pterygoid plates, zygomatic arches, lamina papyracea, and orbital floors are intact. The visualized brain parenchyma and orbits are unremarkable. IMPRESSION: Slight irregularity of the right nasal bone consistent with an age-indeterminate fracture. ACT 112: Negative or not required by law. Electronically signed by: Lobo Adler M.D. 12/30/2022 4:[address] 12/30/22 14:02 CT head/brain wo con CLINICAL HISTORY: 62 years-old Female with syncope. Acute syncope TECHNIQUE: Multiple axial CT images of the head were obtained without contrast. A dose lowering technique was utilized adhering to the principles of ALARA. COMPARISON: 05/13/2022 FINDINGS: No acute intracranial hemorrhage, midline shift, intracranial mass, hydrocephalus, territorial ischemia or abnormal extra-axial collection. The calvarium is intact. The paranasal sinuses, mastoid air cells, and middle ear cavities are clear. IMPRESSION: No acute intracranial abnormality. ACT 112: Negative or not required by law. The above report was generated using voice recognition software. It may contain grammatical, syntax or spelling errors. Electronically signed by: Franky Castrejon M.D. 12/30/2022 4:21 PM Hip/Pelvis X-Ray 12/30/22 14:02 XR hip RT 2V w pelvis CLINICAL HISTORY: fall. Right hip pain. COMPARISON STUDY: Pelvis 06/13/2022. FINDINGS: There is contrast within the bladder from the recent CT examination. No acute fracture or dislocation within the pelvis or hips. The visualized sacrum is intact. No radiopaque foreign bodies. IMPRESSION: No fracture or dislocation within the pelvis or hips. ACT 112: Negative or not required by law. Electronically signed by: Lobo Adler M.D. 12/30/2022 4:39 PM Abdomen/Pelvis CT 12/30/22 14:[address] WITH IV CONTRAST CT DOSE: 3437.70 mGy.cm HISTORY: right sided pain, syncope TECHNIQUE: Multiaxial CT images of the abdomen and pelvis were performed following the use of intravenous contrast. A dose lowering technique was utiliz ed adhering to the principles of ALARA. COMPARISON STUDY: None. FINDINGS: The lung bases will be reported on the same day chest CTA. No pneumoperitoneum. No pneumatosis. No acute fractures identified within the abdomen or pelvis. Prior cholecystectomy. No hepatic or splenic masses. The adrenal glands, pancreas, and kidneys are unremarkable. No hydronephrosis. The main portal vein is patent. Calcified plaque within the normal caliber abdominal aorta. No retroperitoneal or pelvic lymphadenopathy. No pelvic free fluid. The bladder is unremarkable. The major mesenteric vessels appear patent. No evidence for a bowel obstruction. Normal appendix. Mild thickening of the gastric antrum. This suggests a nonspecific gastritis. There is mild thickening and pericolonic fat stranding in the descending colon. Questionable thickening of the transverse colon and sigmoid colon may be due to underdistention. IMPRESSION: 1. Mild thickening within the descending colon consistent with a nonspecific co litis. 2. Mild thickening of the gastric antrum. This favors a mild gastritis. 3. Normal appendix. 4. No evidence for a bowel obstruction. ACT 112: Negative or not required by law. Electronically signed by: Lobo Adler M.D. 12/30/2022 4:16 PM Chest CTA 12/30/22 14:07 CT angio chest PE protocol CLINICAL HISTORY: PE TECHNIQUE: Multidetector row helical CT of the chest was performed with angiographic protocol. Coronal and sagittal reformations were obtained. Coronal and sagittal MIPS were obtained from the axial data set and were submitted for review. Automated dose lowering techniques and/or adjustment according to patient size were utilized for this exam. Comparison: Comparison is made to CT chest 12/30/2022 FINDINGS: Lungs and pleura: Atelectasis versus scarring is seen in the dependent portions of the lungs. There is a 2 mm nodule in the right upper lobe (series 11 image 133). Heart and pericardium: Heart size is normal. No pericardial effusion. Vessels: No evidence of pulmonary embolism. Mediastinum and richardson: Unremarkable. Chest wall and lower neck: Unremarkable. Abdomen: Unremarkable. Bones: Degenerative changes in the thoracic spine. IMPRESSION: 1. No acute abnormality and in particular no evidence of pulmonary embolus. 2. 2 mm nodule in the right upper lobe. According to Fleischner criteria, no follow-up is required in low risk patients, in high-risk patients, a 12 month follow-up CT can be optionally performed. ACT 112: Negative or not required by law. Electronically signed by: Delon Hunt M.D. 12/30/2022 3:57 PM Discharge Plan Visit Data Chief Complaint: Fall Stated Complaint: FALL, PAIN IN R SIDE, EYE BRUSING, HIT NOSE ED Provider: Tomas Chopra Discharge Problem: Syncope, ALEXANDRA (acute kidney injury), Diarrhea, Head injury, Contusion of face, Elevated troponin I level, Contusion of hip, right Patient Disposition: Being Evaluated by Hospitalist Forms Stand Alone Forms: My [facility] [employer] Prescriptions Prescriptions: No Action tizanidine 2 mg capsule 2 mg PO BID PRN (Reason: MUSCLE SPASMS) metoprolol tartrate 25 mg tablet 50 mg PO DAILY levothyroxine 50 mcg tablet 50 mcg PO DAILY Qty: 90 1RF hydrocodone-acetaminophen 7.5-325 mg tablet 1 tab PO Q8H PRN (Reason: Pain) Mounjaro 7.5 mg/0.5 mL pen injector 7.5 mg subcut WK Rx Instructions: SUNDAYS hydroxyzine HCl 10 mg tablet 10 mg PO HS PRN (Reason: Sleep) aspirin 81 mg tablet,delayed release (DR/EC) 81 mg PO DAILY cetirizine 10 mg tablet 10 mg PO BID PRN (Reason: Congestion) duloxetine 60 mg capsule,delayed release(DR/EC) 60 mg PO DAILY etodolac 500 mg tablet 500 mg PO BID metformin 500 mg tablet 1,000 mg PO BID omeprazole 20 mg capsule,delayed release(DR/EC) 20 mg PO DAILY camphor-menthol 0.5-0.5 % lotion 1 applic topical TID lidocaine 5 % ointment 1 applic topical BID magnesium oxide 420 mg tablet 420 mg PO DAILY rosuvastatin 20 mg tablet 20 mg PO DAILY hydralazine 25 mg tablet 25 mg PO Q6H MDD 100mg PRN (Reason: SBP > 180) Qty: 60 0RF pregabalin 300 mg Capsule 300 mg PO BID Referrals Referrals: Jonny Lyman, GEROPSYCHOLOGIST-C [Primary Care Provider] -
[2022-12-30] MEDS ORDERED: IOVERSOL 350 MG 125mL Prefilled Syringe IV ONE (15:28)
--- NOTE | 2022-12-30 15:54 | CT Scan Report ---
CT cervical spine wo con CLINICAL HISTORY: syncope TECHNIQUE: Multidetector row helical CT of the cervical spine was performed without administration of intravenous contrast. Coronal and sagittal reformations were obtained. Automated dose lowering techn iques and/or adjustment according to patient size were utilized for this exam. Comparison: Comparison is made to CT cervical spine 05/13/2022 FINDINGS: No acute fractures or subluxations are identified. Degenerative changes are seen in the visualized sp ine. The alignment is normal. Soft tissues are unremarkable. IMPRESSION: Degenerative changes without evidence of acute bony injury. ACT 112: Negative or not required by law. Electronically signed by: Delon Hunt M.D. 12/30/2022 3:53 PM
--- NOTE | 2022-12-30 15:58 | CT Scan Report ---
CT angio chest PE protocol CLINICAL HISTORY: PE TECHNIQUE: Multidetector row helical CT of the chest was performed with angiographic protocol. Billy l and sagittal reformations were obtained. Coronal and sagittal MIPS were obtained from the axial chris a set and were submitted for review. Automated dose lowering techniques and/or adjustment according to patient size were utilized for this exam. Comparison: Comparison is made to CT chest 12/30/2022 FINDINGS: Lungs and pleura: Atelectasis versus scarring is seen in the dependent portions of the lungs. There i s a 2 mm nodule in the right upper lobe (series 11 image 133). Heart and pericardium: Heart size is normal. No pericardial effusion. Vessels: No evidence of pulmonary embolism. Mediastinum and richardson: Unremarkable. Chest wall and lower neck: Unremarkable. Abdomen: Unremarkable. Bones: Degenerative changes in the thoracic spine. IMPRESSION: 1. No acute abnormality and in particular no evidence of pulmonary embolus. 2. 2 mm nodule in the right upper lobe. According to Fleischner criteria, no follow-up is required i n low risk patients, in high-risk patients, a 12 month follow-up CT can be optionally performed. ACT 112: Negative or not required by law. Electronically signed by: Delon Hunt M.D. 12/30/2022 3:57 PM
--- NOTE | 2022-12-30 16:18 | CT Scan Report ---
ABDOMEN AND PELVIS CT WITH IV CONTRAST CT DOSE: 3437.70 mGy.cm HISTORY: right sided pain, syncope TECHNIQUE: Multiaxial CT images of the abdomen and pelvis were performed following the use of intrave nous contrast. A dose lowering technique was utilized adhering to the principles of ALARA. COMPARISON STUDY: None. FINDINGS: The lung bases will be reported on the same day chest CTA. No pneumoperitoneum. No pneumato sis. No acute fractures identified within the abdomen or pelvis. Prior cholecystectomy. No hepatic or splenic masses. The adrenal glands, pancreas, and kidneys are unremarkable. No hydronephrosis. The m ain portal vein is patent. Calcified plaque within the normal caliber abdominal aorta. No retroperito theo or pelvic lymphadenopathy. No pelvic free fluid. The bladder is unremarkable. The major mesenter ic vessels appear patent. No evidence for a bowel obstruction. Normal appendix. Mild thickening of th e gastric antrum. This suggests a nonspecific gastritis. There is mild thickening and pericolonic fat stranding in the descending colon. Questionable thickening of the transverse colon and sigmoid colon may be due to underdistention. IMPRESSION: 1. Mild thickening within the descending colon consistent with a nonspecific colitis. 2. Mild thickening of the gastric antrum. This favors a mild gastritis. 3. Normal appendix. 4. No evidence for a bowel obstruction. ACT 112: Negative or not required by law. Electronically signed by: Lobo Adler M.D. 12/30/2022 4:16 PM
--- NOTE | 2022-12-30 16:22 | CT Scan Report ---
CT head/brain wo con CLINICAL HISTORY: 62 years-old Female with syncope. Acute syncope TECHNIQUE: Multiple axial CT images of the head were obtained without contrast. A dose lowering tech nique was utilized adhering to the principles of ALARA. COMPARISON: 05/13/2022 FINDINGS: No acute intracranial hemorrhage, midline shift, intracranial mass, hydrocephalus, territorial ischem ia or abnormal extra-axial collection. The calvarium is intact. The paranasal sinuses, mastoid air cells, and middle ear cavities are clear . IMPRESSION: No acute intracranial abnormality. ACT 112: Negative or not required by law. The above report was generated using voice recognition software. It may contain grammatical, syntax o r spelling errors. Electronically signed by: Franky Castrejon M.D. 12/30/2022 4:21 PM
--- NOTE | 2022-12-30 16:39 | CT Scan Report ---
MAXILLOFACIAL CT CT DOSE: HISTORY: Fall. syncope TECHNIQUE: Multiaxial CT images of the maxillofacial region were performed and reformatted in the cor onal plane without the use of contrast. A dose lowering technique was utilized adhering to the princ ipltoño of ROBERTH. COMPARISON: None. FINDINGS: Slight irregularity of the right nasal bone consistent with an age-indeterminate fracture. The nasal septum is intact. The visualized cervical spine, skull base, mandible, pterygoid plates, zy gomatic arches, lamina papyracea, and orbital floors are intact. The visualized brain parenchyma and orbits are unremarkable. IMPRESSION: Slight irregularity of the right nasal bone consistent with an age-indeterminate fracture. ACT 112: Negative or not required by law. Electronically signed by: Lobo Adler M.D. 12/30/2022 4:38 PM
--- NOTE | 2022-12-30 16:40 | XRay Report ---
XR hip RT 2V w pelvis CLINICAL HISTORY: fall. Right hip pain. COMPARISON STUDY: Pelvis 06/13/2022. FINDINGS: There is contrast within the bladder from the recent CT examination. No acute fracture or d islocation within the pelvis or hips. The visualized sacrum is intact. No radiopaque foreign bodies. IMPRESSION: No fracture or dislocation within the pelvis or hips. ACT 112: Negative or not required by law. Electronically signed by: Lobo Adler M.D. 12/30/2022 4:39 PM
[2022-12-30 16:50] LABS: Appearance Urine Cloudy (Clear); Bacteria Urine Automated Negative (Negative); Bilirubin Urine Negative (Negative); Blood Urine Trace (Negative); Color Urine Yellow; Epithelial Cell Urine Auto >30 /lpf (0-5); Glucose Urine UA Negative (Negative); Ketones Urine Negative (Negative); Leukocyte Esterase Urine Negative (Negative); Nitrite Urine Negative (Negative); Protein Urine 2+ (Negative); Specific Gravity Urine 1.023 (1.000-1.030); Urobilinogen Urine Negative (Negative); pH Urine 6.5 (4.5-7.5)
--- NOTE | 2022-12-30 17:43 | History & Physical Report ---
Date of Service December 30, 2022 Assessment & Plan (1) Stroke-like symptoms: Plan: -Admit to med tele -Patient is currently stable -At this time her symptoms including recurrent falls without warning signs, intermittent double-vision, and difficulty with BL hand coordination are concerning for possible CVA -Cannot rule out other etiologies at this time such as seizure or demyelinating disease. -CT of the head today was negative for hemorrhage -Will obtain STAT MRI of the brain wo con for further evaluation; we would ideally obtain an MRI of the brain and cervical spine w/wo con, unfortunately we will have to hold contrast at this time due to significant ALEXANDRA and receiving CT IV con earlier today -Will consult neurology -q4h neuro checks, seizure precautions, fall precautions -Will hold chemical DVT PPX until MRI is back -BL SCD's for DVT PPX for now -Clear liquid diet, advance as tolerated -AM CBC, CMP, Mag, PT/INR (2) Recurrent falls: Plan: -Patient with multiple falls over the weekend -No symptoms prior to her falls, denies chest pain, heart palpitations, or vertigo prior to her falls -Patient does have a hx of recurrent syncope/falls thought to be due to possible autonomic dysfunction and/or orthostasis with dehydration -Her recent falls could be related to possible stroke with ongoing cerebellar d ysfunction, will follow up on MRI -Continue to monitor on tele, fall precautions -Monitor TTE tomorrow, could consider PT/OT prior to discharge (3) Elevated troponin: Plan: -Initial high sen trop elevated at 186 --> 176 on 2 hour repeat -Patient without chest pain/SOB/chest pressure, no acute ST segment or T-wave changes on ECG today compared to 06/13/22 -Likely due to demand and false elevation due to ALEXANDRA -Cannot rule out cardiac etiology at this time -Continue to monitor on tele, will obtain another high sen trop at 10 pm to ensure it's trending down -Follow TTE tomorrow (4) ALEXANDRA (acute kidney injury): Plan: -Cr noted to be 1.99, baseline appears to be 0.90 -Likely multifactorial including dehydration and consistently taking BID Etodolac -S/P 2L NSS in the ED, will give another 1L LR at 100 mL/hr -Hold nephrotoxic agents, monitor intake/output, daily renal function and electrolytes -Will see if she can tolerate clear liquids for now, if not will continue light IV fluids (5) DM II (diabetes mellitus, type II), controlled: Plan: -Continue clear liquid diet for now, advance as tolerated -Hold metformin -Monitor BSG q6h until she is eating consistently, goal is 110-160 -Start CF of 50 q6h for now -Adjust regimen as needed (6) Gastritis: Plan: -Likely due to regular NSAID use (etodolac) -Hold NSAIDs, will give a dose of IV famotidine and pantoprazole on admission -Continue daily famotidine and pantoprazole tomorrow -Would increased her prn omeprazole to at least daily on DC, try and avoid NS AIDs outpatient (7) Colitis: Plan: -Noted on CT of the abd/pelvis w/con in the ED -Patient has been having non-bloody diarrhea since 12/26 -Likely due to gastroenteritis -Mild leukocytosis of 12 -Will obtain stool panel with C.diff PCR on admission -Start clear liquid diet, advance as tolerated (8) Diarrhea: Plan: -Likely due to gastroenteritis -Has been having 2 episodes of non-bloody diarrhea daily -No recent abx use -CT of the abd/pelvis shows colitis and gastritis -Patient is stable and has been afebrile, will hold antibiotics at this time and continue with symptomatic management (9) Elevated bilirubin: Plan: -Total bili elevated at 2.5 -Patient's abdominal pain is epigastralgic and lower in the abdomen, no RUQ pain -No acute findings on CT of the abd/pelvis w/IV con in the ED -Likely due to dehydration -Monitor am CMP (10) Hypertension: Plan: -Stable -Continue metoprolol, hold hydralazine (11) Hypothyroidism: Plan: -Continue levothyroxine Plan The patient was discussed with Dr. Knott at the time of the admission History of Present Illness Chief Complaint: Recurrent falls Primary Care Provider: Jonny Lyman, JORDANC La is a 62 year old female with a PMH significant for recurrent syncope, hypertension, hypothyroidism, dyslipidemia, DM, and CAD who presented to the [facility] ED on 12/30 for recurrent falls. In the ED the patient was initially noted to have a BP of 95/67 and was tachycardic at 115 but otherwise stable. Labs were significant or a leukocytosis of 12, cr of 1.99 (baseline is near 0.9), BUN of 34, AG of 12 with bicarb of 21, sodium of 134, total bili of 2.5, initial high sen trop of 186, and UA not suggestive of UTI. CT of the face was read as "Slight irregularity of the right nasal bone consistent with an age- indeterminate fracture.". CT of the abd/pelivs w/IV con was read as "1. Mild thickening within the descending colon consistent with a nonspecific colitis. 2. Mild thickening of the gastric antrum. This favors a mild gastritis. 3. Normal appendix. 4. No evidence for a bowel obstruction.". CTA of the chest was negative for PE but did show a 2mm right upper lobe nodule. And CT head wo con, CT cervical spine, chest xray, xrays of the BL hips/pelvis were without acute findings. Prior to admission the patient was given 2L NSS. At the time of the exam the patient was sitting in bed in no acute distress. She states that she started to develop non-bloody diarrhea on 12/26; she has had approximately 2 episodes of diarrhea daily. She denies recent antibiotic use. She has had associated epigastric abdominal pain but denies nausea and vomiting. On 12/27 she was walking to her kitchen with a glass in her hand when she suddenly fell. She is unsure if she lost consciousness and states that when she woke, both of her hands were flexed medially, towards her abdomen. She denies seizure-like activity or losing bowel/bladder incontinence during this episode and states she was on the floor for "maybe 1-2 min". She states that she had approximately 2 more episodes of falls over the weekend. After her initial fall the patient states that she started to develop intermittent double vision but denies any other changes in vision, hearing, taste or smell. She also noticed that while trying to do normal activities, like typing, she will suddenly lose coordination in her hands. During my exam the patient had an approximately 1-2 min episode of double vision which resolved spontaneously. She denies recent fever, chills, chest pain, SOB, vomiting, new LE weakness or trauma. [facility]. She had not used her PRN hydralazine since her last discharge. Per chart review, the patient has been admitted multiple times in the past for recurrent syncope. She has had extensive workups, her syncope is thought to be due to a autonomic nervous system dysfunction exacerbated by her antihypertensives and dehydration. He has previously been taken off losartan and diltiazem and continued on metoprolol with prn hydralazine. Please refer to Dr. Knott's attestation for any changes to the treatment plan Allergies Allergy/AdvReac Type Severity Reaction Status Date / Time nickel Allergy Intermediate Hives Verified 12/30/22 15:15 Home Medications Medication Instructions Recorded Confirmed Type aspirin 81 mg tablet,delayed 81 mg PO DAILY 08/10/20 12/30/22 History release cetirizine 10 mg tablet 10 mg PO BID PRN Congestion 08/10/20 12/30/22 History duloxetine 60 mg capsule,delayed 60 mg PO DAILY neuropathy 08/10/20 12/30/22 History release etodolac 500 mg tablet 500 mg PO BID 08/10/20 12/30/22 History metformin 500 mg tablet 1,000 mg PO BID 08/10/20 12/30/22 History omeprazole 20 mg capsule,delayed 20 mg PO DAILY 08/10/20 12/30/22 History release tizanidine 2 mg capsule 2 mg PO BID PRN MUSCLE SPASMS 02/20/21 12/30/22 History camphor-menthol 0.5 %-0.5 % lotion 1 applic topical TID 02/25/22 12/30/22 History lidocaine 5 % topical ointment 1 applic topical BID 02/25/22 12/30/22 History magnesium oxide 420 mg tablet 420 mg PO DAILY 02/25/22 12/30/22 History rosuvastatin 20 mg tablet 20 mg PO DAILY 02/25/22 12/30/22 History hydralazine 25 mg tablet 25 mg PO Q6H PRN SBP > 180 #60 tabs 06/17/22 12/30/22 Rx hydrocodone 7.5 mg-acetaminophen 1 tab PO Q8H PRN Pain 10/30/22 12/30/22 History 325 mg tablet hydroxyzine HCl 10 mg tablet 10 mg PO HS PRN Sleep 10/30/22 12/30/22 History metoprolol tartrate 25 mg tablet 50 mg PO DAILY 10/30/22 12/30/22 History tirzepatide 7.5 mg/0.5 mL 7.5 mg subcut WK 10/30/22 12/30/22 History subcutaneous pen injector (Allison) levothyroxine 50 mcg tablet 50 mcg PO DAILY #90 tabs 11/05/22 12/30/22 Rx pregabalin 300 mg capsule 300 mg PO BID 12/30/22 12/30/22 History Past Med/Surg History Medical History Alopecia CAD (coronary artery disease) Chest pain Diabetes mellitus Dyslipidemia Dyslipidemia GERD (gastroesophageal reflux disease) Hypertension Hypothyroid Lumbar radiculopathy Sinus tachycardia Spinal stenosis, lumbar region with neurogenic claudication Thoracic facet syndrome Thyroid dysfunction Surgical History H/O: hysterectomy partial History of cholecystectomy History of knee replacement Bilateral Hx of knee surgery Family History Mother Coronary heart disease Brother Coronary heart disease Social History Smoking Status: Never smoker Cigarettes Per Day: 3 pack years, quit 30 years ago; Second Hand Exposure: No; Do You Dip or Chew Tobacco: No; Hx Alcohol Use: No Hx Substance Use: No Preferred Language: Taiwanese Communication Ability: Effective Superintendent Power Required: No Beliefs That Will Affect Care: None marital status: Current Living Situation: Alone Current Living Situation Comment: home with two dogs current occupational status: unemployed Feels Safe at Home: Yes Assistive Devices: None Physical Exam Physical Exam: Physical Exam: General: In no acute distress, stated age, well-nourished, non-toxic appearing HEENT: Normocephalic, patient with bruising over the right maxillary surface, otherwise atraumatic, no scleral icterus, pupils around round, symmetrical, and reactive to light, moist mucus membranes, trachea midline, no thyromegaly Chest/Pulm: No respiratory distress, symmetrical chest expansion, clear breath sounds throughout Cardiac: RRR, no murmurs noted Abdomen: Negative for ascites and bruising, normoactive bowel sounds, soft, non-tender to palpation throughout Musculoskeletal: Symmetrical and without signs of acute trauma, decreased strength in the RUE compared to left, decreased strength in the LLE compared to right which is her baseline from previous injury Extremities: Radial, dorsalis pedis, and posterior tibial pulses are intact and symmetrical, no edema noted in the BL LE's Skin: Warm, dry, no rashes , lesions, or scars noted Neuro: Alert and oriented to person, place, month, year, and president, CN II-XII tested no acute abnormalities during testing, visual acuity intact BL, difficulty with cerebellar testing in the RUE which is new Psych: No acute distress, calm and cooperative during the exam Results & Data Results & Data Vital Signs (Past 12 Hours) Vital Signs Temp Pulse Resp BP Pulse Ox O2 Del Method 12/30/22 16:01 85 18 97 12/30/22 16:01 129/86 12/30/22 15:40 104/72 12/30/22 15:40 93 H 17 12/30/22 15:00 94 H 16 96 12/30/22 15:00 98/66 L 12/30/22 14:46 101/72 12/30/22 14:27 95/67 L 12/30/22 14:27 102 H 22 94 12/30/22 14:10 104 H 12/30/22 12:20 998 H Room Air 12/30/22 12:20 98 Room Air 12/30/22 12:11 98 Room Air 12/30/22 12:17 35.9 C L 115 H 20 109/69 96 Room Air Laboratory Results Abnormal lab results 12/30/22 12/30/22 12/30/22 Range/Units 12:35 12:35 16:01 WBC 12.54 H (4.8-10.8) K/ul RDW Std Deviation 49.6 H (36.4-46.3) fL RDW Coeff of Kamila 16.1 H (11.5-14.5) % Neut # (Auto) 10.59 H (1.40-6.50) K/uL Sodium 134 L (136-145) mmol/L Anion Gap 12 H (3-11) BUN 34 H (6-23) mg/dl Creatinine 1.99 H (0.6-1.2) mg/dl Glucose 125 H (70-99(Fasting)) mg/dl Total Bilirubin 2.5 H (0.2-1.0) mg/dl Troponin I High Sens 186.8 H* 176.8 H* (0-14) pg/ml Urine Appearance (Clear) Urine Protein (Negative) Urine Blood (Negative) Urine WBC (Auto) (0-5) /hpf Urine RBC (Auto) (0-4) /hpf U Hyaline Cast (Auto) (0-5) /lpf U Epithel Cells (Auto) (0-5) /lpf Granular Casts (0) /lpf 12/30/22 Range/Units 16:25 WBC (4.8-10.8) K/ul RDW Std Deviation (36.4-46.3) fL RDW Coeff of Kamila (11.5-14.5) % Neut # (Auto) (1.40-6.50) K/uL Sodium (136-145) mmol/L Anion Gap (3-11) BUN (6-23) mg/dl Creatinine (0.6-1.2) mg/dl Glucose (70-99(Fasting)) mg/dl Total Bilirubin (0.2-1.0) mg/dl Troponin I High Sens (0-14) pg/ml Urine Appearance Cloudy A (Clear) Urine Protein 2+ H (Negative) Urine Blood Trace H (Negative) Urine WBC (Auto) 5-10 H (0-5) /hpf Urine RBC (Auto) 5-10 H (0-4) /hpf U Hyaline Cast (Auto) 10-30 H (0-5) /lpf U Epithel Cells (Auto) >30 H (0-5) /lpf Granular Casts 1-5 H (0) /lpf Diagnostic Findings Chest X-Ray 12/30/22 12:20 XR chest 1V not portable HISTORY: 62 years-old Female Weakness acute weakness COMPARISON: 06/13/2022 TECHNIQUE: PA view of the chest FINDINGS: Cardiomediastinal and hilar silhouettes are within normal limits. No pneumothorax, pleural effusion, airspace consolidation or pulmonary edema. Bones appear grossly intact. Spondylitic spurring of the spine. Cholecystectomy. IMPRESSION: No acute process. ACT 112: Negative or not required by law. The above report was generated using voice recognition software. It may contain grammatical, syntax or spelling errors. Electronically signed by: Franky Castrejon M.D. 12/30/2022 1:[address] 12/30/22 14:02 CT cervical spine wo con CLINICAL HISTORY: syncope TECHNIQUE: Multidetector row helical CT of the cervical spine was performed without administration of intravenous contrast. Coronal and sagittal reformations were obtained. Automated dose lowering techniques and/or adjustment according to patient size were utilized for this exam. Comparison: Comparison is made to CT cervical spine 05/13/2022 FINDINGS: No acute fractures or subluxations are identified. Degenerative changes are seen in the visualized spine. The alignment is normal. Soft tissues are unremarkable. IMPRESSION: Degenerative changes without evidence of acute bony injury. ACT 112: Negative or not required by law. Electronically signed by: Delon Hunt M.D. 12/30/2022 3:[address] 12/30/22 14:[address] DOSE: HISTORY: Fall. syncope TECHNIQUE: Multiaxial CT images of the maxillofacial region were performed and reformatted in the coronal plane without the use of contrast. A dose lowering technique was utilized adhering to the principles of ALARA. COMPARISON: None. FINDINGS: Slight irregularity of the right nasal bone consistent with an age- indeterminate fracture. The nasal septum is intact. The visualized cervical spine, skull base, mandible, pterygoid plates, zygomatic arches, lamina papyracea, and orbital floors are intact. The visualized brain parenchyma and orbits are unremarkable. IMPRESSION: Slight irregularity of the right nasal bone consistent with an age-indeterminate fracture. ACT 112: Negative or not required by law. Electronically signed by: Lobo Adler M.D. 12/30/2022 4:[address] 12/30/22 14:02 CT head/brain wo con CLINICAL HISTORY: 62 years-old Female with syncope. Acute syncope TECHNIQUE: Multiple axial CT images of the head were obtained without contrast. A dose lowering technique was utilized adhering to the principles of ALARA. COMPARISON: 05/13/2022 FINDINGS: No acute intracranial hemorrhage, midline shift, intracranial mass, hydrocephalus, territorial ischemia or abnormal extra-axial collection. The calvarium is intact. The paranasal sinuses, mastoid air cells, and middle ear cavities are clear. IMPRESSION: No acute intracranial abnormality. ACT 112: Negative or not required by law. The above report was generated using voice recognition software. It may contain grammatical, syntax or spelling errors. Electronically signed by: Franky Castrejon M.D. 12/30/2022 4:21 PM Hip/Pelvis X-Ray 12/30/22 14:02 XR hip RT 2V w pelvis CLINICAL HISTORY: fall. Right hip pain. COMPARISON STUDY: Pelvis 06/13/2022. FINDINGS: There is contrast within the bladder from the recent CT examination. No acute fracture or dislocation within the pelvis or hips. The visualized sacrum is intact. No radiopaque foreign bodies. IMPRESSION: No fracture or dislocation within the pelvis or hips. ACT 112: Negative or not required by law. Electronically signed by: Lobo Adler M.D. 12/30/2022 4:39 PM Abdomen/Pelvis CT 12/30/22 14:[address] WITH IV CONTRAST CT DOSE: 3437.70 mGy.cm HISTORY: right sided pain, syncope TECHNIQUE: Multiaxial CT images of the abdomen and pelvis were performed following the use of intravenous contrast. A dose lowering technique was utilized adhering to the principles of ALARA. COMPARISON STUDY: None. FINDINGS: The lung bases will be reported on the same day chest CTA. No pneumoperitoneum. No pneumatosis. No acute fractures identified within the abdomen or pelvis. Prior cholecystectomy. No hepatic or splenic masses. The adrenal glands, pancreas, and kidneys are unremarkable. No hydronephrosis. The main portal vein is patent. Calcified plaque within the normal caliber abdominal aorta. No retroperitoneal or pelvic lymphadenopathy. No pelvic free fluid. The bladder is unremarkable. The major mesenteric vessels appear patent. No evidence for a bowel obstruction. Normal appendix. Mild thickening of the gastric antrum. This suggests a nonspecific gastritis. There is mild thickening and pericolonic fat stranding in the descending colon. Questionable thickening of the transverse colon and sigmoid colon may be due to underdistention. IMPRESSION: 1. Mild thickening within the descending colon consistent with a nonspecific colitis. 2. Mild thickening of the gastric antrum. This favors a mild gastritis. 3. Normal appendix. 4. No evidence for a bowel obstruction. ACT 112: Negative or not required by law. Electronically signed by: Lobo Adler M.D. 12/30/2022 4:16 PM Chest CTA 12/30/22 14:07 CT angio chest PE protocol CLINICAL HISTORY: PE TECHNIQUE: Multidetector row helical CT of the chest was performed with angiographic protocol. Coronal and sagittal reformations were obtained. Coronal and sagittal MIPS were obtained from the axial data set and were submitted for review. Automated dose lowering techniques and/or adjustment according to patient size were utilized for this exam. Comparison: Comparison is made to CT chest 12/30/2022 FINDINGS: Lungs and pleura: Atelectasis versus scarring is seen in the dependent portions of the lungs. There is a 2 mm nodule in the right upper lobe (series 11 image 133). Heart and pericardium: Heart size is normal. No pericardial effusion. Vessels: No evidence of pulmonary embolism. Mediastinum and richardson: Unremarkable. Chest wall and lower neck: Unremarkable. Abdomen: Unremarkable. Bones: Degenerative changes in the thoracic spine. IMPRESSION: 1. No acute abnormality and in particular no evidence of pulmonary embolus. 2. 2 mm nodule in the right upper lobe. According to Fleischner criteria, no follow-up is required in low risk patients, in high-risk patients, a 12 month follow-up CT can be optionally performed. ACT 112: Negative or not required by law. Electronically signed by: Delon Hunt M.D. 12/30/2022 3:57 PM ECG Additional Comments: sinus tachycardia, no acute ST segment or T-wave changes noted compared to previous ECG from 06/13/22 Code Status & VTE Plan Code Status Full code VTE Prophylaxis Plan VTE Prophylaxis will be ordered: Yes Supervising Physician Co-Signing Physician Notes Patient seen and examined, chart reviewed, case discussed with Olu Henderson PA-C and I agree with the assessment and plan as above except as otherwise noted Labs and images reviewed 62yo F hx of recurrent syncope/falls, previously with eval for autonomic instability and orthostasis currently on metoprolol who presents for episodes of nonbloody diarrhea and progressive weakness with subsequent falls and syncope on Thursday. Falls are with rapid lightheadedness/syncope. No bowel/bladder incontinence. Pt has fallen suddenly enough to strike her face/cheek and no prodomal sx. Since then has had periods of double vision which were present at time of PA evaluation. Also w/ hand coorinination trouble. Agree w/ MRI, due to multiple symptoms over time contrast was recommended to evaluate for CVA and demyelenating disease. Unfortunately due to GFR was not able to be performed with contrast. MRI pending. Neuro consulted. Fall precautions. Agree w assessment and management as above. ALEXANDAR suspicious for prerenal 2/2 diarrhea, fluids as noted. Trop downtrending, suspect demand w/ volume depletion. PG Care Time/CCT Total # of Minutes Spent Total Time Spent with Patient: Total time spent is greater than 50% in coordination of care (as documented) at patient's floor/unit and/or counseling patient: Coding [place] [address] INT INP/OBS CARE 3/75MIN Patient Type Established History Comprehensive Exam Comprehensive Medical Decision Making High Complexity Diagnoses Stroke-like symptoms R29.90 Recurrent falls R29.6 Elevated troponin R77.8 ALEXANDRA (acute kidney injury) N17.9 DM II (diabetes mellitus, type II), controlled E11.9 Gastritis K29.70 Colitis K52.9 Diarrhea R19.7 Diarrhea type: unspecified type Elevated bilirubin R17 Hypertension I10 Hypothyroidism E03.9 (8) Diarrhea Diarrhea type: unspecified type Qualified Code(s): R19.7 - Diarrhea, unspecified
[2022-12-30] MEDS ORDERED: PANTOprazole 40 MG in SYRINGE 0 ML IV ONE (17:44)
[2022-12-30] MEDS ORDERED: FAMOTIDINE 20 MG in SYRINGE 3 ML IV STA (17:44)
[2022-12-30] MEDS ORDERED: ACETAMINOPHEN 325 MG TAB PO STA ×2 (18:04→20:30)
[2022-12-30] MEDS ORDERED: LACTATED RINGER'S 1,000 ML IV SCH (18:15)
[2022-12-30] MEDS ORDERED: DEXTROSE 50% 50 ML SYRINGE IV PRN (19:07)
[2022-12-30] MEDS ORDERED: GLUCOSE 40% GEL 15 GM TUBE PO PRN (19:07)
[2022-12-30] MEDS ORDERED: GLUCAGON FOR INJ 1 MG VIAL SQ PRN (19:07)
[2022-12-30] MEDS ORDERED: CARBOHYDRATES FOR HYPOGLYCEMIA PO PRN (19:07)
[2022-12-30] MEDS ORDERED: GLUCOSE 10 TAB/TUBE PO PRN (19:07)
[2022-12-30] MEDS ORDERED: ONDANSETRON INJ 2 MG/ML 2 ML VIAL IV PRN (19:15)
--- NOTE | 2022-12-30 20:48 | Magnetic Resonance Report ---
Exam(s): MRI HEAD Without Contrast EXAM: MR Head Without Intravenous Contrast CLINICAL HISTORY: Reason for exam: stroke workup. TECHNIQUE: Magnetic resonance images of the head/brain without intravenous contrast in multiple planes. COMPARISON: CT head 12/30/22 FINDINGS: Brain: No diffusion restriction to suggest acute cerebral ischemia. No mass-effect or midline shift. Mild age-related parenchymal volume loss. Scattered foci of T2/FLAIR white matter signal hyperintensity suggesting mild chronic small vessel ischemic change. No hemorrhage. Ventricles: Unremarkable. No ventriculomegaly. Bones/joints: Unremarkable. Sinuses: Trace mucosal thickening in the ethmoids. Paranasal sinuses otherwise clear. No acute sinusitis. Mastoid air cells: Unremarkable as visualized. No mastoid effusion. Orbits: Unremarkable as visualized. IMPRESSION: No acute intracranial process. Electronically signed by: Fam Abreu M.D. 12/30/22 20:47 PM
[2022-12-30] MEDS: MoRPHine SULFATE 2 MG/ML CARP IV PRN (21:42)
[2022-12-30] MEDS ORDERED: hydrOXYzine HCl 10 MG TAB PO PRN (22:45)
[2022-12-30] MEDS: INSULIN ASPART PER UNIT CHARGE SC SCH (22:48)
[2022-12-30] MEDS: PREGABALIN 150 MG CAP PO SCH (23:38)
[2022-12-31] MEDS: INSULIN ASPART PER UNIT CHARGE SC SCH ×5 (00:46→20:50)
[2022-12-31] MEDS: MoRPHine SULFATE 2 MG/ML CARP IV PRN ×2 (01:39→10:37)
[2022-12-31] MEDS: LEVOTHYROXINE SODIUM 50 MCG TABLET PO SCH (05:34)
[2022-12-31 06:47] LABS: Basophils # (auto) 0.03 K/uL (0.00-0.20); Basophils % (auto) 0.3 %; Eosinophils # (auto) 0.11 K/uL (0.00-0.50); Eosinophils % (auto) 1.3 %; Hematocrit (blood only) 32.8 % (37.0-47.0); Hemoglobin 10.8 g/dl (12.0-16.0); Immature Granulocytes # (auto) 0.02 K/uL (0.01-0.20); Immature Granulocytes % (auto) 0.2 %; Lymphocytes # (auto) 1.89 K/uL (1.20-3.40); Lymphocytes % (auto) 21.6 %; Mean Corpuscular Hemoglobin 27.8 pg (25.0-34.0); Mean Corpuscular Hgb Conc 32.9 g/dL (32.0-36.0); Mean Corpuscular Volume 84.5 fL (80.0-100.0); Mean Platelet Volume 10.3 fL (9.4-12.4); Monocytes # (auto) 0.47 K/uL (0.11-0.59); Monocytes % (auto) 5.4 %; Neutrophils # (auto) 6.21 K/uL (1.40-6.50); Neutrophils % (auto) 71.2 %; Platelet Count 223 K/uL (130-400); RDW Standard Deviation 49.7 fL (36.4-46.3); Red Blood Count 3.88 M/uL (4.20-5.40); White Blood Count 8.73 K/ul (4.8-10.8)
[2022-12-31 06:57] LABS: Albumin Globulin Ratio 1.3 (0.9-2); Albumin Level 3.1 gm/dl (3.4-5.0); BUN Creatinine Ratio 13.6 (10-20); Bilirubin,Total 1.5 mg/dl (0.2-1.0); Calcium 8.4 mg/dl (8.6-10.3); Creatinine Clr Calc Pharmacy 40.5 ml/min; Est GFR (African American) 44.5 ml/min; Est GFR (Non-African American) 38.4 ml/min; Globulin 2.4 gm/dl (2.5-4.0); Potassium 3.7 mmol/L (3.5-5.1); Total Protein 5.5 gm/dl (6.0-8.3)
[2022-12-31 07:13] LABS: Prothrombin Time 10.9 Seconds (9.0-12.0)
[2022-12-31] MEDS: FAMOTIDINE 20 MG TAB PO SCH (08:57)
[2022-12-31] MEDS: MAGNESIUM OXIDE 400 MG TAB PO SCH (08:57)
[2022-12-31] MEDS: DULoxetine HCL 60 MG CAP PO SCH (08:57)
[2022-12-31] MEDS: ASPIRIN 81 MG ECTAB PO SCH (08:57)
[2022-12-31] MEDS: METOPROLOL TARTRATE 50 MG TAB PO SCH (08:58)
[2022-12-31] MEDS: ROSUVASTATIN CALCIUM 20 MG TAB PO SCH (08:58)
[2022-12-31] MEDS: PANTOprazole 40 MG TAB PO SCH (08:58)
[2022-12-31] MEDS: PREGABALIN 150 MG CAP PO SCH ×2 (09:01→20:51)
[2022-12-31] MEDS ORDERED: ACETAMINOPHEN 325 MG TAB PO ONE (10:21)
--- NOTE | 2022-12-31 10:45 | Neurology Consultation ---
Date of Consultation December 31, 2022 Assessment & Plan (1) Syncope: Plan 62-year-old female with a history of recurrent syncope, likely due to orthostatic hypotension or dysautonomia. She has an antalgic gait pattern largely due to a recent left tibial fracture. Otherwise, she is neurologically intact and does not have signs or symptoms suggestive of stroke. Further, her brain MRI was unremarkable in this regard, revealing no evidence of acute or subacute infarct, or other worrisome process. I note that she did see [facility] cardiology this past April, during an admission for syncope. At that point in time, it was felt that her syncope was related to hypotension, possible orthostatic hypotension. She does not report signs or symptoms suggestive of seizure disorder. Consider obtaining an up-to-date cardiology evaluation. Further, it would not be unreasonable to obtain a CTA of the head and neck, if her renal function will allow. Alternatively, could also consider MRA of the brain without contrast, MRA of the neck with and without contrast. If a neck MRA with and without contrast cannot be completed due to her renal function, then would consider a carotid ultrasound. Again, however, she does not have signs or symptoms suggestive of stroke. I see that she is taking daily low-dose aspirin, and may continue with this medication. Would also consider discontinuation of tizanidine as this muscle relaxant may cause dizziness. In this light, could also consider reducing her dosage of pregabalin slightly as well. History of Present Illness Reason for Consultation: Recurrent syncope/falls, concern for stroke Requesting Physician: Santiago Attending Physician: Donnie Nguyễn History of Present Illness The patient is a 62-year-old female who presented to the emergency department yesterday for recurrent syncope, she did have a facial injury with 1 of these falls. These episodes occur while standing and are characterized by feeling of dizziness or lightheadedness, no vertigo, dysarthria, or focal weakness. She did endorse some transient double vision occurring with these episodes. She had been admitted to the [facility] this past May after a syncopal episode complicated by left tibial fracture, she has a history of left total knee arthroplasty as well and had been seen by orthopedics at that time. She has been evaluated by [facility] endocrinology for hypothyroidism and [facility] rheumatology recently for a positive AZALEA. A CT of the head was negative for hemorrhage or acute process. A CT of the face revealed an age-indeterminate fracture of the right nasal bone. A CT of the cervical spine was negative for acute fracture or subluxation. [facility] evaluation of strokelike symptoms. A follow-up brain MRI was completed yesterday as well. The study was unremarkable, no evidence of acute or subacute infarct, hemorrhage, or other worrisome process. There was evidence of mild chronic small vessel ischemic change. I independently reviewed these images. I see that she had a cardiology evaluation this past April during an admission for syncope, likely due to symptomatic hypotension/orthostatic hypotension. Looks like her losartan was discontinued at that time. She had been on diltiazem and metoprolol to address tachycardia by another certified tumor registrar. Allergies Allergy/AdvReac Type Severity Reaction Status Date / Time nickel Allergy Intermediate Hives Verified 12/30/22 15:15 Home Medications Medication Instructions Recorded Confirmed Type aspirin 81 mg tablet,delayed 81 mg PO DAILY 08/10/20 12/30/22 History release cetirizine 10 mg tablet 10 mg PO BID PRN Congestion 08/10/20 12/30/22 History duloxetine 60 mg capsule,delayed 60 mg PO DAILY neuropathy 08/10/20 12/30/22 History release etodolac 500 mg tablet 500 mg PO BID 08/10/20 12/30/22 History metformin 500 mg tablet 1,000 mg PO BID 08/10/20 12/30/22 History omeprazole 20 mg capsule,delayed 20 mg PO DAILY 08/10/20 12/30/22 History release tizanidine 2 mg capsule 2 mg PO BID PRN MUSCLE SPASMS 02/20/21 12/30/22 History camphor-menthol 0.5 %-0.5 % lotion 1 applic topical TID 02/25/22 12/30/22 History lidocaine 5 % topical ointment 1 applic topical BID 02/25/22 12/30/22 History magnesium oxide 420 mg tablet 420 mg PO DAILY 02/25/22 12/30/22 History rosuvastatin 20 mg tablet 20 mg PO DAILY 02/25/22 12/30/22 History hydralazine 25 mg tablet 25 mg PO Q6H PRN SBP > 180 #60 tabs 06/17/22 12/30/22 Rx hydrocodone 7.5 mg-acetaminophen 1 tab PO Q8H PRN Pain 10/30/22 12/30/22 History 325 mg tablet hydroxyzine HCl 10 mg tablet 10 mg PO HS PRN Sleep 10/30/22 12/30/22 History metoprolol tartrate 25 mg tablet 50 mg PO DAILY 10/30/22 12/30/22 History tirzepatide 7.5 mg/0.5 mL 7.5 mg subcut WK 10/30/22 12/30/22 History subcutaneous pen injector (Allison) levothyroxine 50 mcg tablet 50 mcg PO DAILY #90 tabs 11/05/22 12/30/22 Rx pregabalin 300 mg capsule 300 mg PO BID 12/30/22 12/30/22 History Patient History Medical History Alopecia CAD (coronary artery disease) Chest pain Diabetes mellitus Dyslipidemia Dyslipidemia GERD (gastroesophageal reflux disease) Hypertension Hypothyroid Lumbar radiculopathy Sinus tachycardia Spinal stenosis, lumbar region with neurogenic claudication Thoracic facet syndrome Thyroid dysfunction Surgical History H/O: hysterectomy partial History of cholecystectomy History of knee replacement Bilateral Hx of knee surgery Family History Mother Coronary heart disease Brother Coronary heart disease Social History Smoking Status: Former smoker Tobacco Type: Cigarettes Cigarettes Per Day: 3 pack years, quit 30 years ago; Second Hand Exposure: No; Do You Dip or Chew Tobacco: No; Hx Alcohol Use: No Hx Substance Use: No Preferred Language: Togolese Communication Ability: Effective Oracle Data Warehouse Developer Required: No Beliefs That Will Affect Care: None marital status: Current Living Situation: Alone Current Living Situation Comment: home with two dogs current occupational status: unemployed Feels Safe at Home: Yes Assistive Devices: None Review of Systems Constitutional: no fever and no chills Eyes: as per Subjective / HPI; no blind spots, no diplopia and no eye pain Ear, Nose, Mouth, Throat: no hearing loss Respiratory: no cough and no dyspnea Cardiovascular: + palpitations; no chest pain Gastrointestinal: no nausea and no vomiting Genitourinary: no dysuria Musculoskeletal: no neck pain and no myalgia Integumentary: no rash and no lesions Neurologic: + unsteadiness; no lack of coordination, no tremor(s), no abnormal speech and no confusion Psychiatric: no depression and no anxiety Hematologic / Lymphatic: no easy bleeding and no easy bruising Exam (Neuro) Constitutional: well developed and well nourished; no acute distress Eyes: normal visual little by confrontation, PERRL and EOM intact bilaterally Neurologic: Oriented to:: Person, Place and Time Memory: Short Term Intact and Remote Intact Attention: Span Intact and Concentration Intact Speech F luency: negative Dysarthria or Dysfluency Fund of Knowledge: Current Events, Past History and Vocabulary Cranial Nerves: Normal II, III, IV, , V, VII, VIII, IX, X, XI and XII Motor Strength: Normal Lower Extremities and Normal Upper Extremities Motor Tone: Normal Lower Extremities and Normal Upper Extremities Muscle Bulk/Involuntary Movements: No Involuntary Movements; negative Muscle Atrophy Sensation: Light Touch Intact, Pain/Temperature Intact and Proprioception Intact Coordination: Normal; negative Dysdiadochokinesia, Finger-Nose Abnormal or Heel-Schneider Abnormal Deep Tendon Reflexes: Rt Triceps: 2+, Lt Triceps: 2+, Rt Biceps: 2+, Lt Biceps: 2+, Rt Brachioradialis: 2+, Lt Brachioradialis: 2+, Rt Patellar: 2+, Lt Patellar: 2+, Rt Ankle: 2+ and Lt Ankle: 2+ Special Tests: negative Babinski Present Gait: Antalgic Results & Data Vital Signs (Past 12 Hours) Vital Signs Temp Pulse Pulse Resp BP Pulse Ox O2 Del Method 12/31/22 07:55 36.9 C 79 18 106/72 95 Room Air 12/31/22 07:24 81 12/31/22 02:30 36.6 C 83 18 110/73 92 Room Air 12/30/22 23:05 91 H Laboratory Results WBC 8.73, hemoglobin 10.8, hematocrit 32.8, platelet count 223, sodium 138, potassium 3.7, BUN 20, creatinine 1.47, glucose 95, calcium 8.4, magnesium 2.0, AST 15, ALT 10, triglycerides 200, cholesterol 140, LDL 63, VLDL 40, HDL 37.3, vitamin B12 453, TSH 3.[address] of the head and brain MRI are as described in the HPI. An echocardiogram completed this past April revealed normal left ventricular size and systolic function, EF 60 to 65%, no regional wall motion abnormalities. Coding Level of Care Code 73014 INT INP/OBS CARE Diagnoses Syncope R55
--- NOTE | 2022-12-31 12:38 | XCELERA ---
[id number]
[2022-12-31] MEDS ORDERED: LACTATED RINGER'S 1,000 ML IV ONE (12:56)
--- NOTE | 2022-12-31 13:11 | Discharge Summary ---
Date of Service December 31, 2022 Admission HPI Per Admitting Provider La is a 62 year old female with a PMH significant for recurrent syncope, hypertension, hypothyroidism, dyslipidemia, DM, and CAD who presented to the [facility] ED on 12/30 for recurrent falls. In the ED the patient was initially noted to have a BP of 95/67 and was tachycardic at 115 but otherwise stable. Labs were significant or a leukocytosis of 12, cr of 1.99 (baseline is near 0.9), BUN of 34, AG of 12 with bicarb of 21, sodium of 134, total bili of 2.5, initial high sen trop of 186, and UA not suggestive of UTI. CT of the face was read as "Slight irregularity of the right nasal bone consistent with an age-in determinate fracture.". CT of the abd/pelivs w/IV con was read as "1. Mild thickening within the descending colon consistent with a nonspecific colitis. 2. Mild thickening of the gastric antrum. This favors a mild gastritis. 3. Normal appendix. 4. No evidence for a bowel obstruction.". CTA of the chest was negative for PE but did show a 2mm right upper lobe nodule. And CT head wo con, CT cervical spine, chest xray, xrays of the BL hips/pelvis were without acute findings. Prior to admission the patient was given 2L NSS. At the time of the exam the patient was sitting in bed in no acute distress. She states that she started to develop non-bloody diarrhea on 12/26; she has had approximately 2 episodes of diarrhea daily. She denies recent antibiotic use. She has had associated epigastric abdominal pain but denies nausea and vomiting. On 12/27 she was walking to her kitchen with a glass in her hand when she suddenly fell. She is unsure if she lost consciousness and states that when she woke, both of her hands were flexed medially, towards her abdomen. She denies seizure- like activity or losing bowel/bladder incontinence during this episode and states she was on the floor for "maybe 1-2 min". She states that she had approximately 2 more episodes of falls over the weekend. After her initial fall the patient states that she started to develop intermittent double vision but denies any other changes in vision, hearing, taste or smell. She also noticed that while trying to do normal activities, like typing, she will suddenly lose coordination in her hands. During my exam the patient had an approximately 1-2 min episode of double vision which resolved spontaneously. She denies recent fever, chills, chest pain, SOB, vomiting, new LE weakness or trauma. [facility]. She had not used her PRN hydralazine since her last discharge. Per chart review, the patient has been admitted multiple times in the past for recurrent syncope. She has had extensive workups, her syncope is thought to be due to a autonomic nervous system dysfunction exacerbated by her antihypertensives and dehydration. He has previously been taken off losartan and diltiazem and continued on metoprolol with prn hydralazine. Please refer to Dr. Knott's attestation for any changes to the treatment plan Discharge Data Allergies Allergy/AdvReac Type Severity Reaction Status Date / Time nickel Allergy Intermediate Hives Verified 12/30/22 15:15 Consultations 12/30/22 19:43 Consult Neurology Routine Ordered Studies 12/30/22 14:02 CT cervical spine wo con Stat CT facial bones wo con Stat CT head/brain wo con Stat 12/30/22 14:07 CT abd pelvis IV con only Stat CT angio chest PE protocol Stat 12/30/22 19:13 MRI Brain [MR brain wo con] Stat 12/31/22 12:56 CTA head w con [CT angio head w con] Urgent CTA neck with con [CT angio neck with con] Urgent Hospital Course (1) Stroke-like symptoms: -Admit to med tele -Patient is currently stable -At this time her symptoms including recurrent falls without warning signs, intermittent double-vision, and difficulty with BL hand coordination are concerning for possible CVA -Cannot rule out other etiologies at this time such as seizure or demyelinating disease. -CT of the head today was negative for hemorrhage -Will obtain STAT MRI of the brain wo con for further evaluation; we would ideally obtain an MRI of the brain and cervical spine w/wo con, unfortunately we will have to hold contrast at this time due to significant ALEXANDRA and receiving CT IV con earlier today -Will consult neurology -q4h neuro checks, seizure precautions, fall precautions -Will hold chemical DVT PPX until MRI is back -BL SCD's for DVT PPX for now -Clear liquid diet, advance as tolerated -AM CBC, CMP, Mag, PT/INR (2) Recurrent falls: -Patient with multiple falls over the weekend -No symptoms prior to her falls, denies chest pain, heart palpitations, or vertigo prior to her falls -Patient does have a hx of recurrent syncope/falls thought to be due to possible autonomic dysfunction and/or orthostasis with dehydration -Her recent falls could be related to possible stroke with ongoing cerebellar dysfunction, will follow up on MRI -Continue to monitor on tele, fall precautions -Monitor TTE tomorrow, could consider PT/OT prior to discharge (3) Elevated troponin: -Initial high sen trop elevated at 186 --> 176 on 2 hour repeat -Patient without chest pain/SOB/chest pressure, no acute ST segment or T-wave changes on ECG today compared to 06/13/22 -Likely due to demand and false elevation due to ALEXANDRA -Cannot rule out cardiac etiology at this time -Continue to monitor on tele, will obtain another high sen trop at 10 pm to ensure it's trending down -Follow TTE tomorrow (4) ALEXANDRA (acute kidney injury): -Cr noted to be 1.99, baseline appears to be 0.90 -Likely multifactorial including dehydration and consistently taking BID Etodolac -S/P 2L NSS in the ED, will give another 1L LR at 100 mL/hr -Hold nephrotoxic agents, monitor intake/output, daily renal function and electrolytes -Will see if she can tolerate clear liquids for now, if not will continue light IV fluids (5) DM II (diabetes mellitus, type II), controlled: -Continue clear liquid diet for now, advance as tolerated -Hold metformin -Monitor BSG q6h until she is eating consistently, goal is 110-160 -Start CF of 50 q6h for now -Adjust regimen as needed (6) Gastritis: -Likely due to regular NSAID use (etodolac) -Hold NSAIDs, will give a dose of IV famotidine and pantoprazole on admission -Continue daily famotidine and pantoprazole tomorrow -Would increased her prn omeprazole to at least daily on DC, try and avoid NSAIDs outpatient (7) Colitis: -Noted on CT of the abd/pelvis w/con in the ED -Patient has been having non-bloody diarrhea since 12/26 -Likely due to gastroenteritis -Mild leukocytosis of 12 -Will obtain stool panel with C.diff PCR on admission -Start clear liquid diet, advance as tolerated (8) Diarrhea: -Likely due to gastroenteritis -Has been having 2 episodes of non-bloody diarrhea daily -No recent abx use -CT of the abd/pelvis shows colitis and gastritis -Patient is stable and has been afebrile, will hold antibiotics at this time and continue with symptomatic management (9) Elevated bilirubin: -Total bili elevated at 2.5 -Patient's abdominal pain is epigastralgic and lower in the abdomen, no RUQ pain -No acute findings on CT of the abd/pelvis w/IV con in the ED -Likely due to dehydration -Monitor am CMP (10) Hypertension: -Stable -Continue metoprolol, hold hydralazine (11) Hypothyroidism: -Continue levothyroxine Plan The patient was discussed with Dr. Knott at the time of the admission Discharge Plan Discharge Items Reason For Visit: SYNCOPE, ELEVATED TROP Follow-up/Referrals: Jonny Lyman, ENGINEERING AND OPERATIONS DIRECTOR-C [Primary Care Provider] - Medications and DC Order Prescriptions: No Action tizanidine 2 mg capsule 2 mg PO BID PRN (Reason: MUSCLE SPASMS) metoprolol tartrate 25 mg tablet 50 mg PO DAILY levothyroxine 50 mcg tablet 50 mcg PO DAILY Qty: 90 1RF hydrocodone-acetaminophen 7.5-325 mg tablet 1 tab PO Q8H PRN (Reason: Pain) Mounjaro 7.5 mg/0.5 mL pen injector 7.5 mg subcut WK Rx Instructions: SUNDAYS hydroxyzine HCl 10 mg tablet 10 mg PO HS PRN (Reason: Sleep) aspirin 81 mg tablet,delayed release (DR/EC) 81 mg PO DAILY cetirizine 10 mg tablet 10 mg PO BID PRN (Reason: Congestion) duloxetine 60 mg capsule,delayed release(DR/EC) 60 mg PO DAILY etodolac 500 mg tablet 500 mg PO BID metformin 500 mg tablet 1,000 mg PO BID omeprazole 20 mg capsule,delayed release(DR/EC) 20 mg PO DAILY camphor-menthol 0.5-0.5 % lotion 1 applic topical TID lidocaine 5 % ointment 1 applic topical BID magnesium oxide 420 mg tablet 420 mg PO DAILY rosuvastatin 20 mg tablet 20 mg PO DAILY hydralazine 25 mg tablet 25 mg PO Q6H MDD 100mg PRN (Reason: SBP > 180) Qty: 60 0RF pregabalin 300 mg Capsule 300 mg PO BID Admission Data Admit Date/Time: 12/30/22 17:43 Attending Provider: Donnie Nguyễn Admit Provider: Esvin Knott Primary Care Provider: Jonny Lyman Other Providers: Bayron Cole ; [facility] Coding Diagnoses Stroke-like symptoms R29.90 Recurrent falls R29.6 Elevated troponin R77.8 ALEXANDRA (acute kidney injury) N17.9 DM II (diabetes mellitus, type II), controlled E11.9 Gastritis K29.70 Colitis K52.9 Diarrhea R19.7 Diarrhea type: unspecified type Elevated bilirubin R17 Hypertension I10 Hypothyroidism E03.9
[2022-12-31] MEDS ORDERED: IOVERSOL 350 MG 125mL Prefilled Syringe IV ONE (14:14)
--- NOTE | 2022-12-31 14:42 | CT Scan Report ---
CT angio head w con, CT angio neck with con CLINICAL HISTORY: syncope TECHNIQUE: Contiguous axial CT images of the head were acquired from the base of the skull to the sudha petr without intravenous contrast administration. CT angiography of the head and neck was performed f ollowing intravenous administration of iodinated contrast. Coronal and sagittal MIPS were obtained fr om the axial data set and were submitted for review. Automated dose lowering techniques and/or adjus tment according to patient size were utilized for this examination. All measurements were calculated based on NASCET criteria. CT DOSE: 509.68 mGy.cm Comparison: Comparison is made to MRI brain 12/30/2022 FINDINGS: Lungs and soft tissues are unremarkable. Moderate atherosclerotic disease is seen in the coronary art eries. CTA Neck: A 3 vessel aortic arch is shown. There is no significant atherosclerotic plaque in the aor tic arch or the origins of the innominate, left common carotid, and left subclavian arteries. The co mmon carotid, external carotid, cervical segments of the internal carotid arteries, and the cervical segments of the vertebral arteries are patent without hemodynamically significant stenosis. The left vertebral artery is dominant. CTA Head: The anterior and posterior cerebral circulations are patent. origin of the bilateral posterior cerebral arteries noted. IMPRESSION: 1. No occlusion, hemodynamically significant stenosis, or dissection in the major cervical arteries. 2. No occlusion, hemodynamically significant stenosis, aneurysm, dissection, or arteriovenous malfor mation in the major intracranial arteries. Assessment of stenosis of the internal carotid arteries is based on NASCET criteria. ACT 112: Negative or not required by law. Electronically signed by: Delon Hunt M.D. 12/31/2022 2:40 PM
--- NOTE | 2022-12-31 14:49 | Electrocardiogram Report ---
Test Reason : Blood Pressure : / mmHG Vent. Rate : 119 BPM Atrial Rate : 119 BPM P-R Int : 174 ms QRS Dur : 072 ms QT Int : 294 ms P-R-T Axes : 041 003 121 degrees QTc Int : 413 ms Sinus tachycardia Poor R wave progression, consider anterior WA vs. lead placement vs. LVH Abnormal ECG When compared with ECG of 13-JUN-2022 11:58, AR interval has decreased Vent. rate has increased BY 44 BPM Criteria for Inferior infarct are no longer Present ST now depressed in Lateral leads Nonspecific T wave abnormality has replaced inverted T waves in Inferior leads Nonspecific T wave abnormality now evident in Lateral leads Confirmed by Garrick Miguel ([id number]) on 12/31/2022 2:49:10 PM Referred By: REFERRED SELF Confirmed By:Artem Miguel
--- NOTE | 2022-12-31 17:28 | Communication Note ---
Date of Service: December 31, 2022 pt could not start her car was hallucinating dc cancelled
[2022-12-31] MEDS: ACETAMINOPHEN 325 MG TAB PO SCH ×2 (18:12→20:50)
[2022-12-31] MEDS: LANTUS PER UNIT CHARGE SQ SCH (20:51)
--- NOTE | 2022-12-31 22:19 | Hospitalist Progress Note ---
Date of Service December 31, 2022 Assessment & Plan (1) Stroke-like symptoms: Plan: -Admit to med tele -Patient is currently stable -At this time her symptoms including recurrent falls without warning signs, intermittent double-vision, and difficulty with BL hand coordination are concerning for possible CVA -Cannot rule out other etiologies at this time such as seizure or demyelinating disease. -CT of the head today was negative for hemorrhage -Will obtain STAT MRI of the brain wo con for further evaluation; -Will consult neurology: appreciate input. -Plan for CTA head and neck will monitor her symptoms. -q4h neuro checks, seizure precautions, fall precautions -Will hold chemical DVT PPX until MRI is back -BL SCD's for DVT PPX for now -Clear liquid diet, advance as tolerated -AM CBC, CMP, Mag, PT/INR (2) Recurrent falls: Plan: -Patient with multiple falls over the weekend -No symptoms prior to her falls, denies chest pain, heart palpitations, or vertigo prior to her falls -Patient does have a hx of recurrent syncope/falls thought to be due to possible autonomic dysfunction and/or orthostasis with dehydration -Her recent falls could be related to possible stroke with ongoing cerebellar dysfunction, will follow up on MRI -Continue to monitor on tele, fall precautions -Monitor TTE tomorrow, could consider PT/OT prior to discharge Plan was to discharge on 01/01 but patient became confused. Polypharmacy appears to be a culprit here. (3) Elevated troponin: Plan: -Initial high sen trop elevated at 186 --> 176 on 2 hour repeat -Patient without chest pain/SOB/chest pressure, no acute ST segment or T-wave changes on ECG today compared to 06/13/22 -Likely due to demand and false elevation due to ALEXANDRA -Cannot rule out cardiac etiology at this time -Continue to monitor on tele, will obtain another high sen trop at 10 pm to ensure it's trending down -Follow TTE tomorrow (4) ALEXANDRA (acute kidney injury): Plan: -Cr noted to be 1.99, baseline appears to be 0.90 -Likely multifactorial including dehydration and consistently taking BID Etodolac -S/P 2L NSS in the ED, will give another 1L LR at 100 mL/hr -Hold nephrotoxic agents, monitor intake/output, daily renal function and electrolytes -Will see if she can tolerate clear liquids for now, if not will continue light IV fluids (5) DM II (diabetes mellitus, type II), controlled: Plan: -Continue clear liquid diet for now, advance as tolerated -Hold metformin -Monitor BSG q6h until she is eating consistently, goal is 110-160 -Start CF of 50 q6h for now -Adjust regimen as needed (6) Gastritis: Plan: -Likely due to regular NSAID use (etodolac) -Hold NSAIDs, will give a dose of IV famotidine and pantoprazole on admission -Continue daily famotidine and pantoprazole tomorrow -Would increased her prn omeprazole to at least daily on DC, try and avoid NSAIDs outpatient (7) Colitis: Plan: -Noted on CT of the abd/pelvis w/con in the ED -Patient has been having non-bloody diarrhea since 12/26 -Likely due to gastroenteritis -Mild leukocytosis of 12 -Will obtain stool panel with C.diff PCR on admission -Start clear liquid diet, advance as tolerated (8) Diarrhea: Plan: -Likely due to gastroenteritis -Has been having 2 episodes of non-bloody diarrhea daily -No recent abx use -CT of the abd/pelvis shows colitis and gastritis -Patient is stable and has been afebrile, will hold antibiotics at this time and continue with symptomatic management (9) Elevated bilirubin: Plan: -Total bili elevated at 2.5 -Patient's abdominal pain is epigastralgic and lower in the abdomen, no RUQ pain -No acute findings on CT of the abd/pelvis w/IV con in the ED -Likely due to dehydration -Monitor am CMP (10) Hypertension: Plan: -Stable -Continue metoprolol, hold hydralazine (11) Hypothyroidism: Plan: -Continue levothyroxine Admission and Anticipated Discharge Date Admission Date: December 30, 2022 Subjective Patient is requesting to be discharged. Patient reports feeling well. She has no new complaints. Review of Systems Review of Systems: All systems reviewed & are unremarkable except as noted in HPI & below Physical Exam Physical Exam: General: In no acute distress, stated age, well-nourished, non-toxic appearing HEENT: Normocephalic, patient with bruising over the right maxillary surface, otherwise atraumatic, no scleral icterus, pupils around round, symmetrical, and reactive to light, moist mucus membranes, trachea midline, no thyromegaly Chest/Pulm: No respiratory distress, symmetrical chest expansion, clear breath sounds throughout Cardiac: RRR, no murmurs noted Abdomen: Negative for ascites and bruising, normoactive bowel sounds, soft, non- tender to palpation throughout Musculoskeletal: Symmetrical and without signs of acute trauma, decreased strength in the RUE compared to left, decreased strength in the LLE compared to right which is her baseline from previous injury Extremities: Radial, dorsalis pedis, and posterior tibial pulses are intact and symmetrical, no edema noted in the BL LE's Skin: Warm, dry, no rashes , lesions, or scars noted Neuro: Alert and oriented to person, place, month, year, and president Psych: No acute distress, calm and cooperative during the exam Results & Data Results & Data Vital Signs (Past 12 Hours) Vital Signs Temp Pulse Pulse Resp BP Pulse Ox O2 Del Method 12/31/22 19:43 36.6 C 73 16 101/64 95 Room Air 12/31/22 16:07 36.6 C 78 17 115/73 95 12/31/22 15:59 36.6 C 78 17 115/73 95 Room Air 12/31/22 14:59 118 H 12/31/22 11:27 36.5 C 82 18 107/73 96 Room Air PG Care Time/CCT Total # of Minutes Spent Total Time Spent with Patient: Total time spent is greater than 50% in coordination of care (as documented) at patient's floor/unit and/or counseling patient: Coding Level of Care Code 96562 SUB INP/OBS CARE 3/50MIN Diagnoses Stroke-like symptoms R29.90 Recurrent falls R29.6 Elevated troponin R77.8 ALEXANDRA (acute kidney injury) N17.9 DM II (diabetes mellitus, type II), controlled E11.9 Gastritis K29.70 Colitis K52.9 Diarrhea R19.7 Diarrhea type: unspecified type Elevated bilirubin R17 Hypertension I10 Hypothyroidism E03.9 (8) Diarrhea Diarrhea type: unspecified type Qualified Code(s): R19.7 - Diarrhea, unspecified
[2023-01-01] MEDS: MoRPHine SULFATE 2 MG/ML CARP IV PRN (04:05)
[2023-01-01] MEDS: LEVOTHYROXINE SODIUM 50 MCG TABLET PO SCH (05:18)
[2023-01-01 07:06] LABS: Basophils # (auto) 0.04 K/uL (0.00-0.20); Basophils % (auto) 0.6 %; Eosinophils # (auto) 0.14 K/uL (0.00-0.50); Eosinophils % (auto) 2.2 %; Hematocrit (blood only) 32.1 % (37.0-47.0); Hemoglobin 10.8 g/dl (12.0-16.0); Immature Granulocytes # (auto) 0.03 K/uL (0.01-0.20); Immature Granulocytes % (auto) 0.5 %; Lymphocytes # (auto) 2.12 K/uL (1.20-3.40); Lymphocytes % (auto) 32.7 %; Mean Corpuscular Hemoglobin 28.1 pg (25.0-34.0); Mean Corpuscular Hgb Conc 33.6 g/dL (32.0-36.0); Mean Corpuscular Volume 83.4 fL (80.0-100.0); Mean Platelet Volume 10.6 fL (9.4-12.4); Monocytes # (auto) 0.52 K/uL (0.11-0.59); Neutrophils # (auto) 3.64 K/uL (1.40-6.50); Platelet Count 213 K/uL (130-400); RDW Standard Deviation 49.2 fL (36.4-46.3); Red Blood Count 3.85 M/uL (4.20-5.40); White Blood Count 6.49 K/ul (4.8-10.8)
[2023-01-01 07:30] LABS: Albumin Globulin Ratio 1.3 (0.9-2); Albumin Level 3.1 gm/dl (3.4-5.0); BUN Creatinine Ratio 8.6 (10-20); Bilirubin,Total 0.8 mg/dl (0.2-1.0); Calcium 8.6 mg/dl (8.6-10.3); Creatinine Clr Calc Pharmacy 39.7 ml/min; Est GFR (African American) 43.1 ml/min; Est GFR (Non-African American) 37.2 ml/min; Globulin 2.4 gm/dl (2.5-4.0); Magnesium 1.8 mg/dl (1.7-2.4); Potassium 3.7 mmol/L (3.5-5.1); Total Protein 5.5 gm/dl (6.0-8.3)
[2023-01-01] MEDS: LANTUS PER UNIT CHARGE SQ SCH (08:59)
[2023-01-01] MEDS: INSULIN ASPART PER UNIT CHARGE SC SCH ×2 (09:01→12:56)
[2023-01-01] MEDS: PREGABALIN 150 MG CAP PO SCH (09:01)
[2023-01-01] MEDS: PANTOprazole 40 MG TAB PO SCH (09:01)
[2023-01-01] MEDS: ACETAMINOPHEN 325 MG TAB PO SCH ×2 (09:02→12:16)
[2023-01-01] MEDS: MAGNESIUM OXIDE 400 MG TAB PO SCH (09:02)
[2023-01-01] MEDS: ASPIRIN 81 MG ECTAB PO SCH (09:02)
[2023-01-01] MEDS: METOPROLOL TARTRATE 50 MG TAB PO SCH (09:02)
[2023-01-01] MEDS: ROSUVASTATIN CALCIUM 20 MG TAB PO SCH (09:03)
[2023-01-01] MEDS: DULoxetine HCL 60 MG CAP PO SCH (09:03)
[2023-01-01] MEDS: FAMOTIDINE 20 MG TAB PO SCH (09:03)
[2023-01-01] MEDS ORDERED: HYDROCODONE/ACETAMOPHEN 5/325MG TAB PO ONE (09:28)
--- NOTE | 2023-01-01 12:04 | Neurology Progress Note ---
Date of Service January 01, 2023 Assessment & Plan (1) Altered mental status: (2) Dysautonomia: Plan 62-year-old female with a history of recurrent syncope, orthostatic hypotension, suspected underlying dysautonomia, now with a transient episode of altered mental status occurring after discharge yesterday afternoon. This episode has completely resolved. There may have been associated visual hallucinations, no auditory hallucinations. Patient is neurologically intact and denies any episode of confusion, altered mental status, or hallucinations as reported by nursing staff. At this point, I unable to determine the exact cause of patient's transient altered mental status that occurred yesterday afternoon, just after discharge. The episode may have been related to an adverse reaction to a medication. However, in the context of her underlying suspected dysautonomia, could consider the possibility of underlying Lewy body disease. She does not exhibit any overt parkinsonian signs or symptoms, and again, appears to be neurologically intact this morning. I do not think another brain MRI or other neurologic evaluations are necessary acutely, again, she is appropriate and intact this morning. She is afebrile and has no indication of infection on this morning's lab evaluation. Would review patient's current medications. She does not appear to be on anything currently that would be strongly associated with hallucinations or altered mental status when used appropriately. Going forward, if patient were to exhibit any further episodes of visual hallucinations or altered mental status, would recommend further evaluation in that context, with consideration of possible Lewy body disease. Discussed with hospitalist. Admission and Anticipated Discharge Date Admission Date: December 30, 2022 Subjective Follow-up regarding episode of confusion Patient is a 62-year-old female with a history of recurrent syncope likely due to orthostatic hypotension or dysautonomia, please see my consultation from December 31 for further details. After discharge, yesterday afternoon, the patient was apparently confused while attempting to find her car in the parking lot, after finding her car, her vehicle would apparently not start. Due to her apparent confusion, however, her discharge was canceled. According to nursing staff this morning, she had claimed to perceive fish on her wall or door and was acting strangely. There is no report of any auditory hallucination. The patient overtly denies this episode. She is currently intact neurologically, appropriately oriented and with normal attention and speech. She does not exhibit any abnormal movements. Results & Data Vital Signs (Past 12 Hours) Vital Signs Temp Pulse Pulse Resp BP Pulse Ox O2 Del Method 01/01/23 08:43 36.7 C 73 18 104/64 92 Room Air 01/01/23 07:15 76 01/01/23 02:40 36.6 C 80 18 133/88 97 Room Air PG Care Time/CCT Total # of Minutes Spent Total Time Spent with Patient: Total time spent is greater than 50% in coordination of care (as documented) at patient's floor/unit and/or counseling patient: Coding Level of Care Code 06253 SUB INP/OBS CARE 2/35MIN Diagnoses Altered mental status R41.82 Dysautonomia G90.1
--- NOTE | 2023-01-01 13:41 | Discharge Summary ---
Date of Service January 01, 2023 Principal Diagnosis altered mental status Discharge Exam General: In no acute distress, stated age, well-nourished, non-toxic appearing HEENT: Normocephalic, Chest/Pulm: No respiratory distress, symmetrical chest expansion, clear breath sounds throughout Cardiac: RRR, no murmurs noted Abdomen: Negative for ascites and bruising, normoactive bowel sounds, soft, non- tender to palpation throughout Musculoskeletal: Symmetrical and without signs of acute trauma Extremities: Radial, dorsalis pedis, and posterior tibial pulses are intact and symmetrical, no edema noted in the BL LE's Skin: Warm, dry, no rashes , lesions, or scars noted Neuro: Alert and oriented to person, place, month, year, and president Psych: No acute distress, calm and cooperative during the exam Discharge Data Allergies Allergy/AdvReac Type Severity Reaction Status Date / Time nickel Allergy Intermediate Hives Verified 12/30/22 15:15 Consultations 12/30/22 19:43 Consult Neurology Routine Ordered Studies 12/30/22 14:02 CT cervical spine wo con Stat CT facial bones wo con Stat CT head/brain wo con Stat 12/30/22 14:07 CT abd pelvis IV con only Stat CT angio chest PE protocol Stat 12/30/22 19:13 MRI Brain [MR brain wo con] Stat 12/31/22 12:56 CTA head w con [CT angio head w con] Urgent CTA neck with con [CT angio neck with con] Urgent Hospital Course (1) Stroke-like symptoms: -Admit to med tele -Patient is currently stable -At this time her symptoms including recurrent falls without warning signs, intermittent double-vision, and difficulty with BL hand coordination are concerning for possible CVA -Cannot rule out other etiologies at this time such as seizure or demyelinating disease. -CT of the head today was negative for hemorrhage -MRI negative/ -Will consult neurology: appreciate input. -Plan for CTA head and neck: negative. -q4h neuro checks, seizure precautions, fall precautions -Patient is agreeable to discharge. Disucssed with Neuro, patient with intermittent delirium, but currently not having any signs. At this point no further workup, will cut back on medications as described below. Patient may recommend from a cardio followup at discharge (2) Recurrent falls: -Patient with multiple falls over the weekend -No symptoms prior to her falls, denies chest pain, heart palpitations, or vertigo prior to her falls -Patient does have a hx of recurrent syncope/falls thought to be due to possible autonomic dysfunction and/or orthostasis with dehydration -Her recent falls could be related to possible stroke with ongoing cerebellar dysfunction, will follow up on MRI -Continue to monitor on tele, fall precautions -Monitor TTE tomorrow, could consider PT/OT prior to discharge Plan was to discharge on 12/31 but patient became confused. Polypharmacy appears to be a culprit here. Improved on 01/01. (3) Elevated troponin: -Initial high sen trop elevated at 186 --> 176 on 2 hour repeat -Patient without chest pain/SOB/chest pressure, no acute ST segment or T-wave changes on ECG today compared to 06/13/22 -Likely due to demand and false elevation due to ALEXANDRA (4) ALEXANDRA (acute kidney injury): -Cr noted to be 1.99, baseline appears to be 0.90 -Likely multifactorial including dehydration and consistently taking BID Etodolac -S/P 2L NSS in the ED, will give another 1L LR at 100 mL/hr -Hold nephrotoxic agents, monitor intake/output, daily renal function and electrolytes -Will see if she can tolerate clear liquids for now, if not will continue light IV fluids (5) DM II (diabetes mellitus, type II), controlled: -resume home meds at discharge -Adjust regimen as needed (6) Gastritis: -Likely due to regular NSAID use (etodolac) -Hold NSAIDs, will give a dose of IV famotidine and pantoprazole on admission - try and avoid NSAIDs outpatient (7) Colitis: -Noted on CT of the abd/pelvis w/con in the ED -Patient has been having non-bloody diarrhea since 12/26 -Likely due to gastroenteritis -Mild leukocytosis of 12 -Will obtain stool panel with C.diff PCR on admission -Start clear liquid diet, advance as tolerated (8) Diarrhea: -Likely due to gastroenteritis -Has been having 2 episodes of non-bloody diarrhea daily -No recent abx use -CT of the abd/pelvis shows colitis and gastritis -Patient is stable and has been afebrile, will hold antibiotics at this time and continue with symptomatic management (9) Elevated bilirubin: -Total bili elevated at 2.5 -Patient's abdominal pain is epigastralgic and lower in the abdomen, no RUQ pain -No acute findings on CT of the abd/pelvis w/IV con in the ED -Likely due to dehydration (10) Hypertension: -Stable -Continue metoprolol, hold hydralazine (11) Hypothyroidism: -Continue levothyroxine Total Time Total Time Spent Total Time Spent (In Minutes): 40 Discharge Plan Discharge Items Patient Disposition: Home - Self-Care Reason For Visit: SYNCOPE, ELEVATED TROP Discharge Diagnosis: syncope Activity: Resume your previous activity Non-emergency contact: Primary Care Provider Call non-emergency contact if: you have any medication questions Follow-up/Referrals: Jonny Lyman, [employer] [Primary Care Provider] - (PLEASE CALL YOUR PRIMARY CARE PROVIDER TO SCHEDULE A HOSPITAL DISCHARGE FOLLOW-UP APPOINTMENT WITHIN 7-10 DAYS) Diet: Carb Consistent or DM2 and Heart Healthy Addtl Attending Provider Instructions: Recommend followup with PCP in 1-2 weeks Recommend followup with Cardiology. Delirium or confusion can be intermittent and can last for a few days to weeks even after removing the culprit. Currently it may be due to a side efect of multiple medications you are on, so we will cut these medications back. Your lyrica will be cut back to 150 mg twice a day. WE will recommend close followup with your PCP. Pending Studies at Discharge: No Stand-Alone Forms: My [facility] Mood[employer], Smoking Cessation Medications and DC Order Prescriptions: New pregabalin [Lyrica] 150 mg capsule 150 mg PO BID Qty: 60 0RF Continued metoprolol tartrate 25 mg tablet 50 mg PO DAILY levothyroxine 50 mcg tablet 50 mcg PO DAILY Qty: 90 1RF hydrocodone-acetaminophen 7.5-325 mg tablet 1 tab PO Q8H PRN (Reason: Pain) Mounjaro 7.5 mg/0.5 mL pen injector 7.5 mg subcut WK Rx Instructions: SUNDAYS hydroxyzine HCl 10 mg tablet 10 mg PO HS PRN (Reason: Sleep) aspirin 81 mg tablet,delayed release (DR/EC) 81 mg PO DAILY cetirizine 10 mg tablet 10 mg PO BID PRN (Reason: Congestion) duloxetine 60 mg capsule,delayed release(DR/EC) 60 mg PO DAILY etodolac 500 mg tablet 500 mg PO BID metformin 500 mg tablet 1,000 mg PO BID omeprazole 20 mg capsule,delayed release(DR/EC) 20 mg PO DAILY camphor-menthol 0.5-0.5 % lotion 1 applic topical TID lidocaine 5 % ointment 1 applic topical BID magnesium oxide 420 mg tablet 420 mg PO DAILY rosuvastatin 20 mg tablet 20 mg PO DAILY hydralazine 25 mg tablet 25 mg PO Q6H MDD 100mg PRN (Reason: SBP > 180) Qty: 60 0RF Discontinued tizanidine 2 mg capsule 2 mg PO BID PRN (Reason: MUSCLE SPASMS) pregabalin 300 mg Capsule 300 mg PO BID Discharge Orders: Discharge Order (Routine); Ordered 01/01/23 Ordered By: Donnie Nguyễn Admission Data Admit Date/Time: 12/30/22 17:43 Attending Provider: Donnie Nguyễn Admit Provider: Esvin Knott Primary Care Provider: Jonny Lyman Other Providers: Bayron Cole ; [facility] Other Interventions: Discharge Summary Assessment (RN) Last Done: 01/01/23 14:38 Coding Level of Care Code 03016 INP/OBS DISCH >30 MIN Diagnoses Stroke-like symptoms R29.90 Recurrent falls R29.6 Elevated troponin R77.8 ALEXANDRA (acute kidney injury) N17.9 DM II (diabetes mellitus, type II), controlled E11.9 Gastritis K29.70 Colitis K52.9 Diarrhea R19.7 Diarrhea type: unspecified type Elevated bilirubin R17 Hypertension I10 Hypothyroidism E03.9
== END 2023-01-01 15:42 | disposition home or self-care (01) ==
LOC: ED 12:10 → 2N 12:10 → SUATTDRO 17:43 → 2N 21:53
DX: K29.70 Gastritis, unspecified, without bleeding; R55 Syncope and collapse; R41.82 Altered mental status, unspecified; W19.XXXA Unspecified fall, initial encounter; E03.9 Hypothyroidism, unspecified; Z79.85 Long-term (current) use of injectable non-insulin antidiabetic drugs; R19.7 Diarrhea, unspecified; Z79.84 Long term (current) use of oral hypoglycemic drugs; R27.8 Other lack of coordination; S00.83XA Contusion of other part of head, initial encounter; S09.90XA Unspecified injury of head, initial encounter; R77.8 Other specified abnormalities of plasma proteins; H53.2 Diplopia; Z79.82 Long term (current) use of aspirin; Z79.890 Hormone replacement therapy; N17.9 Acute kidney failure, unspecified; Z91.048 Other nonmedicinal substance allergy status; K52.9 Noninfective gastroenteritis and colitis, unspecified; Z87.891 Personal history of nicotine dependence; Z79.899 Other long term (current) drug therapy; G90.1 Familial dysautonomia [Riley-Day]; R29.6 Repeated falls; S70.01XA Contusion of right hip, initial encounter